=== PATIENT | male | born 1965 | race Caucasian/White ===

== ENCOUNTER 2016-05-05 19:22 | Observation (INO) | payer OTHER ==
--- NOTE | 2016-05-05 19:33 | ED ---
General Adult HPI - General Stated complaint: ETOH Time Seen by Provider: 05/05/16 19:23 Source: patient, police, EMS, RN notes reviewed Mode of arrival: EMS Limitations: no limitations - History of Present Illness Initial comments: 51-year-old male presents emergency Department with police and EMS for alcohol intoxication. Patient was found in the front yard. Patient states he fell and hit his head. Patient is complaining had neck pain. Patient is chronic back pain, chronic headaches from previous head injuries. Patient states he has no focal weakness. Denies any blurred vision, nausea, vomiting. Denies any chest pain or shortness of breath. Patient states his tetanus is up-to-date. Patient complains of abrasion to his left knee. - Related Data Home Medications Medication Instructions Recorded Confirmed Multivitamin [Multivitamins Adult 1 tab PO DAILY 10/30/14 12/24/15 Gummies] PARoxetine HCL [Paroxetine HCl] 20 mg PO DAILY 06/12/15 12/24/15 amLODIPine BESYLATE [Amlodipine 5 mg PO DAILY 06/12/15 12/24/15 Besylate] cloNIDine HCL 0.3 mg PO TID 06/12/15 12/24/15 Meloxicam [Mobic] 7.5 mg PO BID 10/04/15 12/24/15 Montelukast [Singulair] 10 mg PO HS 10/04/15 12/24/15 levETIRAcetam 1,000 mg PO BID 10/04/15 12/24/15 Fluticasone/Salmeterol [Advair 1 puff INHALATION RT-BID 11/14/15 12/24/15 250-50 Diskus] Pregabalin [Lyrica] 100 mg PO BID 11/14/15 12/24/15 Previous Rx's Medication Instructions Recorded Thiamine [Vitamin B-1] 100 mg PO BID@1200,1700 tab 12/26/15 Allergies Allergy/AdvReac Type Severity Reaction Status Date / Time No Known Allergies Allergy Verified 12/24/15 13:15 Review of Systems ROS Statement: Those systems with pertinent positive or pertinent negative responses have been documented in the HPI. ROS Other: All systems not noted in ROS Statement are negative. Past Medical History Past Medical History: COPD, Hypertension, Osteoarthritis (OA), Seizure Disorder Additional Past Medical History / Comment(s): etoh abuse chronic back pain tinnitus,head injur 1.5 years ago-fell down stairs hit head, statd has had blance issues and short term memory issues. History of Any Multi-Drug Resistant Organisms: None Reported Past Surgical History: No Surgical Hx Reported Additional Past Surgical History / Comment(s): wisdom teeth removed Past Anesthesia/Blood Transfusion Reactions: No Reported Reaction Past Psychological History: Anxiety Smoking Status: Current every day smoker Past Alcohol Use History: Abuse, Daily, Heavy Additional Past Alcohol Use History / Comment(s): 1 pack of cig lasts 4 days, hx. of alcohol abuse but is "cutting back",6 beers daily maybe 4-5 days of the week but occ will binge drink Past Drug Use History: None Reported - Past Family History Father Family Medical History: Cancer General Exam General appearance: alert, in no apparent distress, appears intoxicated Head exam: Present: atraumatic, normocephalic, normal inspection Eye exam: Present: normal appearance, PERRL, EOMI. Absent: scleral icterus, conjunctival injection, periorbital swelling ENT exam: Present: normal exam, normal oropharynx, mucous membranes moist, TM's normal bilaterally, normal external ear exam Neck exam: Present: normal inspection, full ROM. Absent: tenderness, meningismus, lymphadenopathy Respiratory exam: Present: normal lung sounds bilaterally. Absent: respiratory distress, wheezes, rales, rhonchi, stridor Cardiovascular Exam: Present: regular rate, normal rhythm, normal heart sounds. Absent: systolic murmur, diastolic murmur, rubs, gallop, clicks GI/Abdominal exam: Present: soft, normal bowel sounds. Absent: distended, tenderness, guarding, rebound, rigid Extremities exam: Present: full ROM, normal capillary refill. Absent: normal inspection (Small abrasion to left knee), tenderness, pedal edema, joint swelling, calf tenderness Neurological exam: Present: alert, oriented X3, CN II-XII intact, reflexes normal. Absent: motor sensory deficit Skin exam: Present: warm, dry, intact, normal color. Absent: rash Course Vital Signs 05/05/16 19:25 Temperature 97.3 F L Pulse Rate 98 Respiratory 18 Rate Blood Pressure 124/82 Medical Decision Making - Lab Data Result diagrams: 05/05/16 20:00 05/05/16 20:00 Lab Results 05/05/16 05/05/16 Range/Units 20:00 20:00 WBC 10.0 (3.8-10.6) k/uL RBC 4.19 L (4.30-5.90) m/uL Hgb 14.3 (13.0-17.5) gm/dL Hct 42.9 (39.0-53.0) % MCV 102.4 H (80.0-100.0) fL MCH 34.2 (25.0-35.0) pg MCHC 33.4 (31.0-37.0) g/dL RDW 14.4 (11.5-15.5) % Plt Count 198 (150-450) k/uL Sodium 135 L (137-145) mmol/L Potassium 4.3 (3.5-5.1) mmol/L Chloride 100 (98-107) mmol/L Carbon Dioxide 22 (22-30) mmol/L Anion Gap 13 mmol/L BUN 8 L (9-20) mg/dL Creatinine 0.69 (0.66-1.25) mg/dL Est GFR (MDRD) Af Amer >60 (>60 ml/min/1.73 sqM) Est GFR (MDRD) Non-Af >60 (>60 ml/min/1.73 sqM) Glucose 97 (74-99) mg/dL Calcium 9.3 (8.4-10.2) mg/dL Magnesium 2.1 (1.6-2.3) mg/dL Total Bilirubin 0.6 (0.2-1.3) mg/dL AST 87 H (17-59) U/L ALT 40 (21-72) U/L Alkaline Phosphatase 75 (38-126) U/L Total Protein 7.9 (6.3-8.2) g/dL Albumin 4.2 (3.5-5.0) g/dL Lipase 298 (23-300) U/L Serum Alcohol 394 mg/dL Disposition Clinical Impression: Fall, Alcohol intoxication Disposition: ADMITTED IP TO THIS [facility] Condition: Good Time of Disposition: 20:35
[2016-05-05 20:15] LABS: Aty Lym Flag Slight; CHCM 33.3; HCT 42.9 % (39.0-53.0); HDW 2.34; HGB 14.3 gm/dL (13.0-17.5); MCH 34.2 pg (25.0-35.0); MCHC 33.4 g/dL (31.0-37.0); MCV 102.4 fL (80.0-100.0); Macrocytosis Slight; Mean Platelet Volume 6.9; RBC 4.19 m/uL (4.30-5.90); RDW 14.4 % (11.5-15.5); WBC (Perox) 10.21
[2016-05-05 20:23] LABS: ALT 40 U/L (21-72); AST 87 U/L (17-59); Alkaline Phosphatase 75 U/L (38-126); Anion Gap 13 mmol/L; Blood Urea Nitrogen 8 mg/dL (9-20); Calcium 9.3 mg/dL (8.4-10.2); Carbon Dioxide 22 mmol/L (22-30); Chloride 100 mmol/L (98-107); Glucose 97 mg/dL (74-99); Magnesium 2.1 mg/dL (1.6-2.3); Non-African American GFR(MDRD) >60 (>60 ml/min/1.73 sqM); Potassium 4.3 mmol/L (3.5-5.1); Sodium 135 mmol/L (137-145); Total Bilirubin 0.6 mg/dL (0.2-1.3); Total Protein 7.9 g/dL (6.3-8.2)
--- NOTE | 2016-05-05 20:28 | CT ---
EXAMINATION TYPE: CT brain cspine wo con DATE OF EXAM: 05/05/2016 8:18 PM COMPARISON: 12/24/2015 and 11/14/2015 HISTORY: Fall today CT DLP: 1929 mGycm Automated exposure control for dose reduction was used. TECHNIQUE: CT scan of the head and cervical spine are performed without contrast. FINDINGS: There is cerebral cortical atrophy. There is no mass effect nor midline shift. There is n o sign of intracranial hemorrhage. The calvarium appears intact. The cervical vertebra have normal alignment and spacing. Posterior elements are intact. Skull base is intact. There is no sign of a fracture. IMPRESSION: Moderate cerebral cortical atrophy. No acute intracranial abnormality. No change compared to old exam . Negative CT scan of the cervical spine. No change compared to old exam.
[2016-05-05 20:32] LABS: Alcohol 394 mg/dL
[2016-05-05] MEDS ORDERED: ONDANSETRON 4 MG/2 ML VIAL IVP PRN (20:36)
[2016-05-05] MEDS ORDERED: NALOXONE 0.4 MG/ML 1 ML VIAL IV PRN (20:36)
[2016-05-05] MEDS ORDERED: SODIUM CHLORIDE 0.9% 1,000 ML with MVI, ADULT NO.4 WITH VIT K 10 ML, THIAMINE 100 MG, F... IV ONE ×4 (20:37)
[2016-05-05] MEDS ORDERED: LORazepam 2 MG/ML SYRINGE IV PRN ×3 (20:37)
[2016-05-05 20:50] LABS: Add Differential Manual Differential
[2016-05-05 20:51] LABS: Nucleated Red Blood Cells 0 /100 WBC (0-0); Polychromasia Present; Total Cells Counted 100; Toxic Granulation Present
[2016-05-05 22:11] VITALS: BMI 28.1
[2016-05-05] MEDS: GABAPENTIN 100 MG CAP PO SCH (22:54)
[2016-05-05] MEDS: THIAMINE 100 MG TAB PO SCH (22:54)
[2016-05-05] MEDS: cloNIDine HCL 0.1 MG TAB PO SCH (22:54)
[2016-05-05] MEDS: levETIRAcetam 500 MG TAB PO SCH (22:55)
[2016-05-05] MEDS: MONTELUKAST 10 MG TAB PO SCH (22:55)
[2016-05-05] MEDS: MELOXICAM 7.5 MG TAB PO SCH (22:55)
[2016-05-05] MEDS: PREGABALIN 75 MG CAP PO SCH (22:55)
[2016-05-06] MEDS: SYMBICORT 80-4.5 MCG INHALER INHALATION SCH ×2 (07:11→17:04)
[2016-05-06] MEDS: PREGABALIN 75 MG CAP PO SCH ×2 (08:08→19:58)
[2016-05-06] MEDS: PARoxetine 20 MG TAB PO SCH (08:08)
[2016-05-06] MEDS: amLODIPine 5 MG TAB PO SCH (08:08)
[2016-05-06] MEDS: cloNIDine HCL 0.1 MG TAB PO SCH ×3 (08:08→19:58)
[2016-05-06] MEDS: levETIRAcetam 500 MG TAB PO SCH ×2 (08:08→19:58)
[2016-05-06] MEDS: MELOXICAM 7.5 MG TAB PO SCH ×2 (08:08→19:58)
[2016-05-06] MEDS: GABAPENTIN 100 MG CAP PO SCH ×2 (08:08→19:59)
[2016-05-06] MEDS ORDERED: THIAMINE 100 MG TAB PO SCH (09:00)
[2016-05-06] MEDS: SODIUM CHLORIDE 0.9% 1,000 ML IV SCH ×2 (11:44→19:43)
[2016-05-06] MEDS: THIAMINE 100 MG TAB PO SCH ×2 (11:45→16:58)
[2016-05-06] MEDS ORDERED: MULTIVITAMINS, THERA 1 EACH TAB PO SCH (12:00)
--- NOTE | 2016-05-06 16:09 | P.HPIM ---
History of Present Illness H&P Date: 05/06/16 Chief Complaint: Acute alcohol intoxication 51-year-old male presented to the emergency room with police via the EMS system for acute alcohol intoxication. Blood alcohol level was 394 on admission Patient reportedly was found in the front yard. He states he fell and hit his head. Patient was complaining of neck pain. Patient denied any blurred vision no nausea vomiting. Denied chest pain or shortness of breath. Patient did state that he had an abrasion to his left knee when he fell. Patient states he has chronic pain and chronic headaches from prior head injury. Patient does have a history of chronic alcoholism. Computed tomography scan of the brain and C-spine was obtained it was a negative CAT scan of the cervical spine. The CT of the brain showed moderate cerebral atrophy with no acute intracranial hemorrhage. No change compared to prior exam Patient states that he had been not drinking but "fell off the wake and started drinking again" Patient currently is sitting up in bed oriented 3 cooperative CIWA protocol in place for impending DTs using Ativan and neurology consultation pending Last hospitalization was in December 2015 at that time blood alcohol level was 452. Review of Systems Essentially unremarkable except as mentioned in the present illness Past Medical History Past Medical History: COPD, Hypertension, Neurologic Disorder, Osteoarthritis ( OA), Seizure Disorder Additional Past Medical History / Comment(s): etoh abuse chronic back pain tinnitus,head injur 1.5 years ago-fell down stairs hit head, statd has had blance issues and short term memory issues. History of Any Multi-Drug Resistant Organisms: None Reported Past Surgical History: No Surgical Hx Reported Additional Past Surgical History / Comment(s): wisdom teeth removed Past Anesthesia/Blood Transfusion Reactions: No Reported Reaction Past Psychological History: Anxiety, Depression Smoking Status: Current every day smoker Past Alcohol Use History: Abuse, Daily, Heavy Additional Past Alcohol Use History / Comment(s): 1 pack of cig lasts 4 days, hx. of alcohol abuse but is "cutting back",6 beers daily maybe 4-5 days of the week but occ will binge drink Past Drug Use History: None Reported - Past Family History Mother Additional Family Medical History / Comment(s): Dementia Father Family Medical History: Cancer Additional Family Medical History / Comment(s): Colon CA Medications and Allergies Home Medications Medication Instructions Recorded Confirmed Type Multivitamin [Multivitamins Adult 1 tab PO DAILY 10/30/14 05/05/16 History Gummies] PARoxetine HCL [Paroxetine HCl] 20 mg PO DAILY 06/12/15 05/05/16 History amLODIPine BESYLATE [Amlodipine 5 mg PO DAILY 06/12/15 05/05/16 History Besylate] cloNIDine HCL 0.3 mg PO TID 06/12/15 05/05/16 History Meloxicam [Mobic] 7.5 mg PO BID 10/04/15 05/05/16 History Montelukast [Singulair] 10 mg PO HS 10/04/15 05/05/16 History levETIRAcetam 1,000 mg PO BID 10/04/15 05/05/16 History Fluticasone/Salmeterol [Advair 1 puff INHALATION RT-BID 11/14/15 05/05/16 History 250-50 Diskus] Gabapentin [Neurontin] 100 mg PO BID 05/05/16 05/05/16 History Thiamine [Vitamin B-1] 100 mg PO DAILY 05/05/16 05/05/16 History Allergies Allergy/AdvReac Type Severity Reaction Status Date / Time No Known Allergies Allergy Verified 05/05/16 22:02 Physical Exam Vitals: Vital Signs Temp Pulse Pulse Resp BP BP Pulse Ox 05/06/16 12:00 62 16 05/06/16 11:57 99.2 F 62 18 120/65 96 05/06/16 08:22 97.4 F L 61 18 112/61 96 05/06/16 08:00 49 L 16 05/06/16 04:00 97.6 F 49 L 16 92/58 92 L 05/06/16 00:00 18 05/05/16 22:22 18 05/05/16 22:07 65 18 140/83 98 05/05/16 20:50 97.0 F L 66 18 103/63 97 Intake and Output 05/06/16 05/06/16 05/06/16 06:59 14:59 22:59 Intake Total 240 Balance 240 Intake: Oral 240 Other: Voiding Method Toilet # Voids 1 GENERAL APPEARANCE: 51-year-old male patient is alert, oriented, 3 in no acute distress. Sitting up in bed taking a diet VITAL SIGNS: Reviewed HEENT: Head is normocephalic and atraumatic. Pupils are equal and reactive. The nares are patent. Oropharynx is clear without lesions. NECK: Supple without lymphadenopathy. Traches midline. HEART: S1, S2. Regular rate and rhythm. Denying chest pain LUNGS: No crackles or wheezes are heard. Adequate air movement bilaterally on room air ABDOMEN: Soft, nontender, nondistended with good bowel sounds. No peritoneal signs. No palpable organomegaly or masses. EXTREMITIES: Normal skin color and turgor. No cyanosis, rash, ulceration, clubbing or edema. Radial pedal pulses are 2/4 bilaterally. Skin abrasion left knee NEUROLOGICAL: No focal deficits. Strength and sensation are grossly intact. Results CBC & Chem 7: 05/05/16 20:00 05/05/16 20:00 Thrombosis Risk Factor Assmnt - Choose All That Apply Each Factor Represents 1 point: Age 41-60 years Thrombosis Risk Factor Assessment Total Risk Factor Score: 1 Thrombosis Risk Factor Assessment Level: Low Risk Assessment and Plan Plan: Impression Present on admission acute alcohol intoxication blood alcohol level 394 Prior to admission fall from a standing position History of a seizure disorder on Keppra 1 g twice a day Hypertension essential Alcohol dependency uncomplicated Chronic alcoholism daily consumption Anxiety disorder nonspecified Current every day smoker Plan CIWA protocol using Ativan for impending DTs Neurology consultation pending Resume home meds as appropriate DVT and GI prophylaxis Fall precautions Patient's been advised to stop smoking cigarettes and drinking alcohol information provided Further recommendations pending The above dictated assessment and findings were discussed with dr roeg Herrera and the plan of care have been dictated as directed. Traci Roe nurse practitioner acting as a scribe for dr guan
--- NOTE | 2016-05-06 19:32 | P.CNNES ---
History of Present Illness Consult date: 05/06/16 Reason for Consult: Patient with alcohol intoxication and fall with altered mental status. History of Present Illness: This patient is a 51-year-old male who was brought to the emergency room today via EMS after being found intoxicated then collapsed on his front yard. Patient has a long-standing history of alcohol abuse and apparently was drinking. He was brought to the emergency room at [facility] where he was evaluated by Dr. Decker. He had struck his head when he had fallen in the front yard and for this reason was sent for a computed tomography scan of the brain and cervical spine. CAT scan of the brain revealed moderate cortical atrophy with no acute intracranial abnormality. Computed tomography scan of the cervical spine was negative with no evidence of fracture or subluxation. Patient's blood alcohol level was noted to be 394 on admission. He was started on a CIWA protocol and admitted to the hospital. Patient states he has been treated for chronic alcoholism. He once again started drinking again recently. In December 2015 his blood alcohol level was 452. Patient states he is recently been found to have evidence of neuropathy. He has been started on gabapentin 100 mg twice a day only last week. For seizure management he has been taking Keppra thousand milligrams twice a day. Patient states he is feeling slightly improved since admission to the hospital. He has had no witnessed seizures since admission. We have recommended to check his Keppra blood level tomorrow morning. We will also obtain routine EEG. He is to be maintained on a CIWA protocol for impending DTs. The patient denies any headache or focal weakness at this time. Neurology is now been consulted for further evaluation and recommendations. Review of Systems Constitutional: Denies chills, Denies fever Eyes: denies blurred vision, denies pain Ears, nose, mouth and throat: Denies headache, Denies sore throat Cardiovascular: Denies chest pain, Denies shortness of breath Respiratory: Denies cough Gastrointestinal: Denies abdominal pain, Denies diarrhea, Denies nausea, Denies vomiting Musculoskeletal: Denies myalgias Integumentary: Denies pruritus, Denies rash Neurological: Reports change in mentation, Reports confusion, Reports convulsions, Reports paresthesias, Reports syncope, Denies numbness, Denies weakness Psychiatric: Denies anxiety, Denies depression Endocrine: Denies fatigue, Denies weight change Past Medical History Past Medical History: COPD, Hypertension, Neurologic Disorder, Osteoarthritis ( OA), Seizure Disorder Additional Past Medical History / Comment(s): etoh abuse chronic back pain tinnitus,head injur 1.5 years ago-fell down stairs hit head, statd has had blance issues and short term memory issues. History of Any Multi-Drug Resistant Organisms: None Reported Past Surgical History: No Surgical Hx Reported Additional Past Surgical History / Comment(s): wisdom teeth removed Past Anesthesia/Blood Transfusion Reactions: No Reported Reaction Past Psychological History: Anxiety, Depression Smoking Status: Current every day smoker Past Alcohol Use History: Abuse, Daily, Heavy Additional Past Alcohol Use History / Comment(s): 1 pack of cig lasts 4 days, hx. of alcohol abuse but is "cutting back",6 beers daily maybe 4-5 days of the week but occ will binge drink Past Drug Use History: None Reported - Past Family History Mother Additional Family Medical History / Comment(s): Dementia Father Family Medical History: Cancer Additional Family Medical History / Comment(s): Colon CA Medications and Allergies Home Medications Medication Instructions Recorded Confirmed Type Multivitamin [Multivitamins Adult 1 tab PO DAILY 10/30/14 05/05/16 History Gummies] PARoxetine HCL [Paroxetine HCl] 20 mg PO DAILY 06/12/15 05/05/16 History amLODIPine BESYLATE [Amlodipine 5 mg PO DAILY 06/12/15 05/05/16 History Besylate] cloNIDine HCL 0.3 mg PO TID 06/12/15 05/05/16 History Meloxicam [Mobic] 7.5 mg PO BID 10/04/15 05/05/16 History Montelukast [Singulair] 10 mg PO HS 10/04/15 05/05/16 History levETIRAcetam 1,000 mg PO BID 10/04/15 05/05/16 History Fluticasone/Salmeterol [Advair 1 puff INHALATION RT-BID 11/14/15 05/05/16 History 250-50 Diskus] Gabapentin [Neurontin] 100 mg PO BID 05/05/16 05/05/16 History Thiamine [Vitamin B-1] 100 mg PO DAILY 05/05/16 05/05/16 History Allergies Allergy/AdvReac Type Severity Reaction Status Date / Time No Known Allergies Allergy Verified 05/05/16 22:02 Physical Examination - Vital Signs Vital Signs: Vital Signs Temp Pulse Pulse Resp BP BP Pulse Ox 05/06/16 12:00 62 16 05/06/16 11:57 99.2 F 62 18 120/65 96 05/06/16 08:22 97.4 F L 61 18 112/61 96 05/06/16 08:00 49 L 16 05/06/16 04:00 97.6 F 49 L 16 92/58 92 L 05/06/16 00:00 18 05/05/16 22:22 18 05/05/16 22:07 65 18 140/83 98 05/05/16 20:50 97.0 F L 66 18 103/63 97 Intake and Output 05/05/16 05/06/16 05/06/16 22:59 06:59 14:59 Intake Total 240 Balance 240 Intake: Oral 240 Other: Voiding Method Toilet # Voids 1 Weight 83.9 kg - Constitutional General appearance: average body habitus, cooperative - EENT EENT: PERRL, mucous membranes moist - Respiratory Respiratory: lungs clear, normal breath sounds - Cardiovascular Cardiovascular: regular rate, normal S1, normal S2 Extremities: no peripheral edema bilaterally - Gastrointestinal Gastrointestinal: normoactive bowel sounds - Integumentary Integumentary: normal - Neurologic Cranial nerve examination: PERRL, EOMI, VFF, V1/V2/V3 grossly intact, face symmetric, tongue midline, intact gag reflex, intact corneal reflex, normal palatal elevation Speech examination: intact Sensorimotor examination: intact Detailed motor examination: grossly full strength in all extremities Motor examination - right side: 5/5: biceps, triceps, wrist flexion, wrist extension, [employer], hip flexors, knee extensors, dorsiflexion, toe extension (EHL) , plantarflexion Motor examination - left side: 5/5: biceps, triceps, wrist flexion, wrist extension, [employer] casting, hip flexors, knee extensors, dorsiflexion, toe extension (EHL) , plantarflexion Detailed sensory examination: intact Reflex and gait examination: intact Reflexes: 1+: ankle, bicep, knee, tricep - Musculoskeletal Musculoskeletal: no pain - Psychiatric Psychiatric: mood/affect appropriate, cooperative Results - Laboratory Findings CBC and BMP: 05/05/16 20:00 05/05/16 20:00 Assessment and Plan (1) Alcohol withdrawal seizure Status: Acute Code(s): F10.239 - ALCOHOL DEPENDENCE WITH WITHDRAWAL, UNSPECIFIED (2) Alcohol intoxication Status: Acute Code(s): F10.129 - ALCOHOL ABUSE WITH INTOXICATION, UNSPECIFIED (3) Complex partial epilepsy Status: Acute Code(s): G40.209 - LOCAL-REL SYMPTC EPI W CMPLX PRT SEIZ,NOT NTRCT,W/O STAT EPI (4) Peripheral neuropathy Status: Acute Code(s): G62.9 - POLYNEUROPATHY, UNSPECIFIED Plan: This patient is a 51-year-old male with known history of chronic alcoholism and alcohol withdrawal seizures. Patient was found collapsed in front of his home on his yard. EMS was called to the scene and he was brought into the emergency room for evaluation. His blood alcohol level on admission was 394. He was sent for computed tomography scan of the brain and cervical spine the results of which are noted above. Both CAT scans were negative for any acute findings. He was admitted to the hospital and is been started on a CIWA protocol. He has been tolerating this and is able to follow simple commands at this time. He denies any headache or focal weakness. He is being closely monitor for delirium tremens due to alcohol abuse. Patient is to continue on Keppra for treatment of his underlying epilepsy. He has recently been diagnosed with neuropathy and is taking gabapentin 100 mg twice a day. We have reviewed the CAT scan results with the patient today in detail. We will obtain a routine EEG tomorrow morning for further assessment. He should be maintained on his current dose of Keppra. We will check his Keppra level tomorrow morning and adjust his dose as needed. He has been recommended to consider outpatient drug rehabilitation program. We will continue close neurological follow-up for this patient during this admission. His overall prognosis at this time remains very guarded. Time with Patient: Greater than 30
[2016-05-06 19:53] VITALS: RESP 16; TEMP 97.9
[2016-05-06] MEDS: FAMOTIDINE 20 MG TAB PO SCH (19:58)
[2016-05-06] MEDS: MONTELUKAST 10 MG TAB PO SCH (19:59)
[2016-05-07] MEDS: SODIUM CHLORIDE 0.9% 1,000 ML IV SCH (05:35)
[2016-05-07 06:34] LABS: Aty Lym Flag Slight; CH 34.4; CHCM 33.2; HCT 40.5 % (39.0-53.0); HDW 2.35; HGB 13.1 gm/dL (13.0-17.5); MCH 33.7 pg (25.0-35.0); MCHC 32.4 g/dL (31.0-37.0); MCV 103.9 fL (80.0-100.0); Macrocytosis Slight; Mean Platelet Volume 7.1; RDW 14.6 % (11.5-15.5); WBC 6.4 k/uL (3.8-10.6); WBC (Perox) 6.86
[2016-05-07 06:48] LABS: Add Differential Manual Differential
[2016-05-07 06:51] LABS: ALT 33 U/L (21-72); AST 53 U/L (17-59); Alkaline Phosphatase 66 U/L (38-126); Anion Gap 9 mmol/L; Blood Urea Nitrogen 13 mg/dL (9-20); Calcium 9.3 mg/dL (8.4-10.2); Carbon Dioxide 24 mmol/L (22-30); Chloride 109 mmol/L (98-107); Glucose 101 mg/dL (74-99); Non-African American GFR(MDRD) >60 (>60 ml/min/1.73 sqM); Potassium 4.5 mmol/L (3.5-5.1); Sodium 142 mmol/L (137-145); Total Bilirubin 0.6 mg/dL (0.2-1.3)
[2016-05-07 06:52] LABS: Nucleated Red Blood Cells 0 /100 WBC (0-0); Total Cells Counted 200
[2016-05-07 06:53] LABS: Manual Review Performed
[2016-05-07] MEDS: SYMBICORT 80-4.5 MCG INHALER INHALATION SCH (07:14)
[2016-05-07 07:38] VITALS: BP 134/85; PULSE 58
[2016-05-07] MEDS: FAMOTIDINE 20 MG TAB PO SCH (10:40)
[2016-05-07] MEDS: cloNIDine HCL 0.1 MG TAB PO SCH (10:40)
[2016-05-07] MEDS: levETIRAcetam 500 MG TAB PO SCH (10:40)
[2016-05-07] MEDS: GABAPENTIN 100 MG CAP PO SCH (10:40)
[2016-05-07] MEDS: amLODIPine 5 MG TAB PO SCH (10:40)
[2016-05-07] MEDS: MELOXICAM 7.5 MG TAB PO SCH (10:41)
[2016-05-07] MEDS: PREGABALIN 75 MG CAP PO SCH (10:41)
[2016-05-07] MEDS: PARoxetine 20 MG TAB PO SCH (10:41)
--- NOTE | 2016-05-08 07:10 | EEG ---
DATE OF SERVICE: 05/07/2016 INDICATIONS FOR EXAMINATION: This patient is a 51-year-old male with history of alcohol intoxication and alcohol-related seizure disorder. Patient found collapsed in front of his home. AGE: 51Y EEG FINDINGS: A routine 21-channel, awake digital EEG recording was accomplished utilizing the 10 to 20 international system with bipolar and referential montages. The background activity in the most alert resting state consists of a low to medium amplitude, fairly well-developed and well-sustained 7 to 8 Hz activity over the posterior head regions. This posterior rhythm attenuates to eye opening. There is a small amount of low amplitude 18 to 20 Hz beta activity seen maximally over the anterior head regions. Muscle and movement artifact was observed on a few occasions during the tracing. Hyperventilation was not performed. Photic stimulation at flash frequencies of 2 to 30 Hz produced a good symmetrical occipital driving response. No epileptiform discharges were seen. IMPRESSION: This EEG is normal for the patient's age. The EEG failed to reveal any focal, lateralized or epileptiform abnormalities. Clinical correlation is recommended.
== END 2016-05-07 15:52 | disposition home or self-care (01) ==
LOC: EC 19:22 → 3OBS 20:45
PROVIDERS: ADMIT Family Medicine; ATTEND Family Medicine
DX: F10.220 Alcohol dependence with intoxication, uncomplicated (principal); M54.2 Cervicalgia; J44.9 Chronic obstructive pulmonary disease, unspecified; I10 Essential (primary) hypertension; G89.29 Other chronic pain; F17.210 Nicotine dependence, cigarettes, uncomplicated; W18.30XA Fall on same level, unspecified, initial encounter; Y92.017 Garden or yard in single-family (private) house as the place of occurrence of the external cause; Z82.0 Family history of epilepsy and other diseases of the nervous system; Z80.0 Family history of malignant neoplasm of digestive organs; G40.209 Localization-related (focal) (partial) symptomatic epilepsy and epileptic syndromes with complex partial seizures, not intractable, without status epilepticus; G62.9 Polyneuropathy, unspecified; Y90.8 Blood alcohol level of 240 mg/100 ml or more; F41.9 Anxiety disorder, unspecified; F32.9 Major depressive disorder, single episode, unspecified; Z79.899 Other long term (current) drug therapy; Z87.820 Personal history of traumatic brain injury; Z79.51 Long term (current) use of inhaled steroids
CPT/HCPCS: 99285 ×2; 96365 ×2; 36415; 94640 ×3; 95816; 80053 ×2; 80177; 83690; 83735; 85025 ×2; 80320; 72125; 70450; G0378 ×3; J3411

== ENCOUNTER 2016-05-10 13:53 | Observation (INO) | payer OTHER ==
[2016-05-10] MEDS ORDERED: SODIUM CHLORIDE 0.9% 1,000 ML IV STA (14:17)
[2016-05-10 14:53] LABS: Basophils % (A) 0 %; CH 34.3; CHCM 33.3; Eosinophils # (A) 0.3 k/uL (0-0.7); Eosinophils % (A) 3 %; HCT 40.8 % (39.0-53.0); HDW 2.42; HGB 13.2 gm/dL (13.0-17.5); Luc # (Auto) 0.42; Luc % (Auto) 4; Lymphocytes # (A) 1.5 k/uL (1.0-4.8); Lymphocytes % (A) 16 %; MCH 33.4 pg (25.0-35.0); MCHC 32.4 g/dL (31.0-37.0); MCV 103.2 fL (80.0-100.0); Macrocytosis Slight; Mean Platelet Volume 7.1; Monocytes # (A) 0.6 k/uL (0-1.0); Monocytes % (A) 6 %; Neutrophils % (A) 71 %; RBC 3.96 m/uL (4.30-5.90); RDW 14.4 % (11.5-15.5); WBC 9.8 k/uL (3.8-10.6); WBC (Perox) 9.77
[2016-05-10 15:03] LABS: ALT 61 U/L (21-72); AST 108 U/L (17-59); Alkaline Phosphatase 82 U/L (38-126); Anion Gap 16 mmol/L; Blood Urea Nitrogen 8 mg/dL (9-20); Carbon Dioxide 18 mmol/L (22-30); Chloride 113 mmol/L (98-107); Glucose 99 mg/dL (74-99); Non-African American GFR(MDRD) >60 (>60 ml/min/1.73 sqM); Potassium 4.4 mmol/L (3.5-5.1); Sodium 147 mmol/L (137-145); Total Bilirubin 0.4 mg/dL (0.2-1.3); Total Protein 7.7 g/dL (6.3-8.2)
[2016-05-10 15:08] LABS: Appearance,Urine Clear (Clear); Bilirubin,Urine Negative (Negative); Glucose,Urine (UA) Negative (Negative); Ketones,Urine Negative (Negative); Leukocyte Esterase,Urine Negative (Negative); Nitrite,Urine Negative (Negative); PH, Urine 5.5 (5.0-8.0); Protein,Urine Negative (Negative); Specific Gravity,Urine 1.001 (1.001-1.035); UA Billing (MACRO vs. MICRO) CHEM; Urobilinogen,Urine <2.0 mg/dL (<2.0)
[2016-05-10 15:13] LABS: Alcohol 382 mg/dL
--- NOTE | 2016-05-10 15:13 | ED ---
General Adult HPI - General Chief complaint: Head Injury Stated complaint: FALL, HEAD INJURY, ETOH Time Seen by Provider: 05/10/16 14:03 Source: patient, EMS Mode of arrival: EMS Limitations: no limitations - History of Present Illness Initial comments: 51-year-old male patient presents to emergency department today after experiencing a fall while out shopping. Patient states that he had a seizure which induced the fall. Patient does have a small laceration over the right eyebrow. Patient has a history of seizures. Patient also admits to being intoxicated. Patient is complaining of neck pain worse than usual. Patient has lower back pain and left hip pain but states this is chronic in nature. Patient denies any chest pain, dizziness, weakness, headache, nausea, vomiting, or abdominal pain. Patient denies any loss of bowel or bladder function. Patient is unsure how long the seizure lasted. Patient was wearing a c-collar upon presentation to the emergency department by EMS. Patient current GCS is 15. - Related Data Home Medications Medication Instructions Recorded Confirmed Multivitamin [Multivitamins Adult 1 tab PO DAILY 10/30/14 05/10/16 Gummies] PARoxetine HCL [Paroxetine HCl] 20 mg PO DAILY 06/12/15 05/10/16 amLODIPine BESYLATE [Amlodipine 5 mg PO DAILY 06/12/15 05/10/16 Besylate] cloNIDine HCL 0.3 mg PO TID 06/12/15 05/10/16 Meloxicam [Mobic] 7.5 mg PO BID 10/04/15 05/10/16 Montelukast [Singulair] 10 mg PO HS 10/04/15 05/10/16 levETIRAcetam 1,000 mg PO BID 10/04/15 05/10/16 Fluticasone/Salmeterol [Advair 1 puff INHALATION RT-BID 11/14/15 05/10/16 250-50 Diskus] Gabapentin [Neurontin] 100 mg PO BID 05/05/16 05/10/16 Thiamine [Vitamin B-1] 100 mg PO DAILY 05/05/16 05/10/16 Pregabalin [Lyrica] 75 mg PO BID 05/10/16 05/10/16 Allergies Allergy/AdvReac Type Severity Reaction Status Date / Time No Known Allergies Allergy Verified 05/10/16 14:09 Review of Systems ROS Statement: Those systems with pertinent positive or pertinent negative responses have been documented in the HPI. ROS Other: All systems not noted in ROS Statement are negative. Past Medical History Past Medical History: COPD, Hypertension, Neurologic Disorder, Osteoarthritis ( OA), Seizure Disorder Additional Past Medical History / Comment(s): etoh abuse chronic back pain tinnitus,head injur 1.5 years ago-fell down stairs hit head, statd has had blance issues and short term memory issues. History of Any Multi-Drug Resistant Organisms: None Reported Past Surgical History: No Surgical Hx Reported Additional Past Surgical History / Comment(s): wisdom teeth removed Past Anesthesia/Blood Transfusion Reactions: No Reported Reaction Past Psychological History: Anxiety, Depression Smoking Status: Current every day smoker Past Alcohol Use History: Abuse, Daily, Heavy Additional Past Alcohol Use History / Comment(s): 1 pack of cig lasts 4 days, hx. of alcohol abuse but is "cutting back",6 beers daily maybe 4-5 days of the week but occ will binge drink Past Drug Use History: None Reported - Past Family History Mother Additional Family Medical History / Comment(s): Dementia Father Family Medical History: Cancer Additional Family Medical History / Comment(s): Colon CA General Exam Limitations: no limitations General appearance: alert, in no apparent distress Head exam: Present: normocephalic, normal inspection. Absent: atraumatic (1.5 cm laceration noted above right eyebrow) Eye exam: Present: normal appearance, PERRL, EOMI. Absent: scleral icterus, conjunctival injection, periorbital swelling ENT exam: Present: normal exam, mucous membranes moist Neck exam: Present: normal inspection. Absent: tenderness, meningismus, full ROM (c-collar in place), lymphadenopathy Respiratory exam: Present: normal lung sounds bilaterally. Absent: respiratory distress, wheezes, rales, rhonchi, stridor Cardiovascular Exam: Present: regular rate, normal rhythm, normal heart sounds. Absent: systolic murmur, diastolic murmur, rubs, gallop, clicks GI/Abdominal exam: Present: soft, normal bowel sounds. Absent: distended, tenderness, guarding, rebound, rigid Extremities exam: Present: normal inspection, full ROM, normal capillary refill. Absent: tenderness, pedal edema, joint swelling, calf tenderness Back exam: Present: normal inspection. Absent: tenderness, CVA tenderness (R), CVA tenderness (L), paraspinal tenderness, vertebral tenderness Neurological exam: Present: alert, oriented X3, CN II-XII intact Psychiatric exam: Present: normal affect, normal mood Skin exam: Present: warm, dry, intact, normal color. Absent: rash Course Vital Signs 05/10/16 13:57 Temperature 97.1 F L Pulse Rate 84 Respiratory 16 Rate Blood Pressure 118/69 O2 Sat by Pulse 93 L Oximetry Procedures - Procedures Initial comment: Laceration over right eyebrow was cleaned thoroughly, a deep structures were intact it was Dermabond closed at this time Medical Decision Making - Medical Decision Making 51-year-old male present emergency For seizure, fall head injury. Patient is intoxicated. Patient does not have a ride at this time. Patient will be admitted to the hospital under Ativan alcohol withdrawal/CIWA. Patient has no history of seizures. - Lab Data Result diagrams: 05/10/16 14:30 05/10/16 14:30 Lab Results 05/10/16 05/10/16 05/10/16 Range/Units 14:30 14:30 14:50 WBC 9.8 (3.8-10.6) k/uL RBC 3.96 L (4.30-5.90) m/uL Hgb 13.2 (13.0-17.5) gm/dL Hct 40.8 (39.0-53.0) % MCV 103.2 H (80.0-100.0) fL MCH 33.4 (25.0-35.0) pg MCHC 32.4 (31.0-37.0) g/dL RDW 14.4 (11.5-15.5) % Plt Count 193 (150-450) k/uL Neutrophils % 71 % Lymphocytes % 16 % Monocytes % 6 % Eosinophils % 3 % Basophils % 0 % Neutrophils # 7.0 (1.3-7.7) k/uL Lymphocytes # 1.5 (1.0-4.8) k/uL Monocytes # 0.6 (0-1.0) k/uL Eosinophils # 0.3 (0-0.7) k/uL Basophils # 0.0 (0-0.2) k/uL Macrocytosis Slight Sodium 147 H (137-145) mmol/L Potassium 4.4 (3.5-5.1) mmol/L Chloride 113 H (98-107) mmol/L Carbon Dioxide 18 L (22-30) mmol/L Anion Gap 16 mmol/L BUN 8 L (9-20) mg/dL Creatinine 0.67 (0.66-1.25) mg/dL Est GFR (MDRD) Af Amer >60 (>60 ml/min/1.73 sqM) Est GFR (MDRD) Non-Af >60 (>60 ml/min/1.73 sqM) Glucose 99 (74-99) mg/dL Calcium 9.0 (8.4-10.2) mg/dL Total Bilirubin 0.4 (0.2-1.3) mg/dL AST 108 H (17-59) U/L ALT 61 (21-72) U/L Alkaline Phosphatase 82 (38-126) U/L Total Protein 7.7 (6.3-8.2) g/dL Albumin 4.0 (3.5-5.0) g/dL Urine Color Colorless Urine Appearance Clear (Clear) Urine pH 5.5 (5.0-8.0) Ur Specific [place] 1.001 (1.001-1.035) Urine Protein Negative (Negative) Urine Glucose (UA) Negative (Negative) Urine Ketones Negative (Negative) Urine Blood Negative (Negative) Urine Nitrite Negative (Negative) Urine Bilirubin Negative (Negative) Urine Urobilinogen <2.0 (<2.0) mg/dL Ur Leukocyte Esterase Negative (Negative) Serum Alcohol 382 mg/dL - EKG Data -: EKG Interpreted by 05/10/16 15:09 EKG obtained at 1452 reveals normal sinus rhythm, low voltage QRS, prolonged QT , ventricular 85, AR interval 160, care is duration 106, QT 404, QTC 480. No evidence of ST elevation or depression. Disposition Clinical Impression: Alcohol intoxication, Fall, Seizures, Facial laceration Disposition: ADMITTED IP TO THIS [facility] Condition: Good Time of Disposition: 16:45
[2016-05-10] MEDS ORDERED: TOPICAL SKIN ADHESIVE 1 EACH AMP TOPICAL ONE (15:15)
--- NOTE | 2016-05-10 16:12 | CT ---
EXAMINATION TYPE: CT brain cspine wo con DATE OF EXAM: 05/10/2016 3:47 PM COMPARISON: Previous study dated 05/05/2016. HISTORY: Fall, head injury. History of seizures. CT DLP: 1440.20 mGycm Automated exposure control for dose reduction was used. FINDINGS: BRAIN: There are prominent CSF spaces surrounding the brain. This may be simply secondary to atrophy. There are atrophic changes which are more prominent in the frontal lobes. This can sometimes be seen in pick's disease. There is no acute focal lesion, mass effect or midline shift identified. I do not see evidence of intracranial blood. Visualized portions of the paranasal sinuses and mastoids are clear. No depressed skull fracture is s een. IMPRESSION: 1. NO ACUTE INTRACRANIAL ABNORMALITY. 2. ATROPHIC CHANGE ARE PROMINENT IN THE FRONTAL REGION. 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 CERVICAL SPINE: Visualized portions of the lungs are clear. There is some shotty cervical adenopathy. Prevertebral soft tissues are otherwise normal. Vertebral body height and alignment are maintained. Atlantoaxial relationships are normal. No fractur e is seen. IMPRESSION: NORMAL CT SCAN OF THE CERVICAL SPINE.
[2016-05-10] MEDS ORDERED: NALOXONE 0.4 MG/ML 1 ML VIAL IV PRN (16:46)
[2016-05-10] MEDS ORDERED: LORazepam 2 MG/ML SYRINGE IV PRN ×3 (16:47)
[2016-05-10] MEDS ORDERED: SODIUM CHLORIDE 0.9% 1,000 ML with MVI, ADULT NO.4 WITH VIT K 10 ML, THIAMINE 100 MG, F... IV ONE ×4 (16:47)
[2016-05-10] MEDS ORDERED: THIAMINE 100 MG TAB PO SCH (17:00)
[2016-05-10 18:09] VITALS: RESP 18
[2016-05-10] MEDS: PREGABALIN 75 MG CAP PO SCH (21:35)
[2016-05-10] MEDS: cloNIDine HCL 0.1 MG TAB PO SCH (21:36)
[2016-05-10] MEDS: GABAPENTIN 100 MG CAP PO SCH (21:36)
[2016-05-10] MEDS: MONTELUKAST 10 MG TAB PO SCH (21:36)
[2016-05-10] MEDS: levETIRAcetam 500 MG TAB PO SCH (21:36)
[2016-05-10] MEDS: MELOXICAM 7.5 MG TAB PO SCH (21:36)
[2016-05-10] MEDS: SODIUM CHLORIDE 0.9% 1,000 ML IV SCH (23:12)
[2016-05-11] MEDS: SODIUM CHLORIDE 0.9% 1,000 ML IV SCH ×2 (06:22→16:48)
[2016-05-11] MEDS: PREGABALIN 75 MG CAP PO SCH ×2 (08:49→20:40)
[2016-05-11] MEDS: levETIRAcetam 500 MG TAB PO SCH ×2 (08:49→20:40)
[2016-05-11] MEDS: cloNIDine HCL 0.1 MG TAB PO SCH ×3 (08:49→20:40)
[2016-05-11] MEDS: GABAPENTIN 100 MG CAP PO SCH ×2 (08:49→20:40)
[2016-05-11] MEDS: MELOXICAM 7.5 MG TAB PO SCH ×2 (08:50→20:41)
[2016-05-11] MEDS: SYMBICORT 80-4.5 MCG INHALER INHALATION SCH ×2 (08:57→19:39)
[2016-05-11] MEDS ORDERED: PARoxetine 20 MG TAB PO SCH (09:00)
[2016-05-11] MEDS ORDERED: amLODIPine 5 MG TAB PO SCH (09:00)
[2016-05-11] MEDS ORDERED: THIAMINE 100 MG TAB PO SCH (09:00)
[2016-05-11] MEDS ORDERED: MULTIVITAMINS, THERA 1 EACH TAB PO SCH (12:00)
--- NOTE | 2016-05-11 15:19 | P.CNNES ---
History of Present Illness Consult date: 05/11/16 Reason for Consult: Patient admitted with closed head injury and seizure disorder. History of Present Illness: This patient is a 51-year-old right-handed white male who was just recently discharged from Hospital after having questionable seizure and passing out spell in his front yard. He was admitted to hospital last week for further evaluation. He has underlying history of alcohol abuse and alcohol related seizure disorder. He has been taking Keppra monotherapy for seizure prophylaxis. During his last admission he underwent a routine EEG which was reviewed at the time and was within normal limits for his age with no active seizure focus. Patient apparently was doing well and was with his friend shopping at the [employer]. He apparently passed out and fell forward and struck a "crack. He sustained a laceration to the right orbital region. He was brought into the emergency room at [facility] for further evaluation yesterday. He was seen in the ER by Dr. Jonas. He was sent for a computed tomography scan of the brain and cervical spine. CAT scan of the brain revealed no acute intracranial abnormality. Atrophy of the frontal region was noted. Cervical spine CAT scan was reported normal. Patient does take Keppra he states on a regular basis. He is currently on Keppra thousand milligrams twice a day. He did require suturing of the right eyebrow. He denies any headache at this time. His blood alcohol level yesterday in the ER was very elevated at 382. He is once again advised to seek out help from a drug rehab unit to help him with his alcohol addiction. Patient denies any headache or focal weakness at this time. Neurology is now consulted for further evaluation and recommendations. Review of Systems Constitutional: Denies chills, Denies fever Eyes: denies blurred vision, denies pain Ears, nose, mouth and throat: Denies headache, Denies sore throat Cardiovascular: Denies chest pain, Denies shortness of breath Respiratory: Denies cough Gastrointestinal: Denies abdominal pain, Denies diarrhea, Denies nausea, Denies vomiting Musculoskeletal: Denies myalgias Integumentary: Denies pruritus, Denies rash Neurological: Reports change in mentation, Reports memory loss, Reports seizures , Denies numbness, Denies weakness Psychiatric: Denies anxiety, Denies depression Endocrine: Denies fatigue, Denies weight change Past Medical History Past Medical History: COPD, Hypertension, Neurologic Disorder, Osteoarthritis ( OA), Seizure Disorder Additional Past Medical History / Comment(s): etoh abuse chronic back pain tinnitus,head injur 1.5 years ago-fell down stairs hit head, statd has had blance issues and short term memory issues. History of Any Multi-Drug Resistant Organisms: None Reported Past Surgical History: No Surgical Hx Reported Additional Past Surgical History / Comment(s): wisdom teeth removed Past Anesthesia/Blood Transfusion Reactions: No Reported Reaction Past Psychological History: Anxiety, Depression Smoking Status: Current every day smoker Past Alcohol Use History: Abuse, Daily, Heavy Additional Past Alcohol Use History / Comment(s): 1 pack of cig lasts 4 days, hx. of alcohol abuse but is "cutting back",6 beers daily maybe 4-5 days of the week but occ will binge drink Past Drug Use History: None Reported - Past Family History Mother Additional Family Medical History / Comment(s): Dementia Father Family Medical History: Cancer Additional Family Medical History / Comment(s): Colon CA Medications and Allergies Home Medications Medication Instructions Recorded Confirmed Type Multivitamin [Multivitamins Adult 1 tab PO DAILY 10/30/14 05/11/16 History Gummies] PARoxetine HCL [Paroxetine HCl] 20 mg PO DAILY 06/12/15 05/11/16 History amLODIPine BESYLATE [Amlodipine 5 mg PO DAILY 06/12/15 05/11/16 History Besylate] cloNIDine HCL 0.3 mg PO TID 06/12/15 05/11/16 History Meloxicam [Mobic] 7.5 mg PO BID 10/04/15 05/11/16 History Montelukast [Singulair] 10 mg PO HS 10/04/15 05/11/16 History levETIRAcetam 1,000 mg PO BID 10/04/15 05/11/16 History Fluticasone/Salmeterol [Advair 1 puff INHALATION RT-BID 11/14/15 05/11/16 History 250-50 Diskus] Gabapentin [Neurontin] 100 mg PO BID 05/05/16 05/11/16 History Thiamine [Vitamin B-1] 100 mg PO DAILY 05/05/16 05/11/16 History Pregabalin [Lyrica] 75 mg PO BID 05/10/16 05/11/16 History Allergies Allergy/AdvReac Type Severity Reaction Status Date / Time No Known Allergies Allergy Verified 05/11/16 01:50 Physical Examination - Vital Signs Vital Signs: Vital Signs Temp Pulse Pulse Resp BP BP BP 05/11/16 11:55 98.3 F 60 18 143/79 05/11/16 08:00 18 05/11/16 07:57 97.9 F 79 18 138/84 05/11/16 04:00 98.1 F 62 18 120/70 05/11/16 00:00 74 18 05/10/16 23:46 74 18 109/61 05/10/16 20:00 78 18 05/10/16 19:50 97.9 F 81 18 123/58 05/10/16 18:06 97.8 F 85 18 152/81 05/10/16 17:03 98.1 F 99 20 148/56 Pulse Ox 05/11/16 11:55 94 L 05/11/16 08:00 05/11/16 07:57 95 05/11/16 04:00 95 05/11/16 00:00 05/10/16 23:46 91 L 05/10/16 20:00 05/10/16 19:50 93 L 05/10/16 18:06 96 05/10/16 17:03 99 Intake and Output 05/10/16 05/11/16 05/11/16 22:59 06:59 14:59 Intake Total 2300 1100 620 Balance 2300 1100 620 Intake: IV 500 800 Sodium Chloride 0.9% 1, 500 800 000 ml @ 100 mls/hr IV . Q10H7M ONE with Mvi, Adult No.4 with Vit K 10 ml with Thiamine 100 mg with Folic Acid 1 mg Rx#: [id number] Oral 1800 300 620 Other: Voiding Method Toilet Toilet Toilet # Voids 1 Weight 84 kg - Constitutional General appearance: average body habitus, cooperative - EENT EENT: mucous membranes moist - Respiratory Respiratory: lungs clear, normal breath sounds - Cardiovascular Cardiovascular: regular rate, normal S1, normal S2 Extremities: no peripheral edema bilaterally - Gastrointestinal Gastrointestinal: normoactive bowel sounds - Neurologic Cranial nerve examination: PERRL, EOMI, VFF, V1/V2/V3 grossly intact, face symmetric, tongue midline, intact gag reflex, intact corneal reflex, normal palatal elevation Speech examination: intact Sensorimotor examination: intact Detailed motor examination: grossly full strength in all extremities Detailed sensory examination: intact Reflex and gait examination: intact Reflexes: 1+: ankle, bicep, knee, tricep - Musculoskeletal Musculoskeletal: no pain - Psychiatric Psychiatric: mood/affect appropriate, cooperative Results - Laboratory Findings CBC and BMP: 05/10/16 14:30 05/10/16 14:30 Assessment and Plan (1) Complex partial epilepsy Status: Acute Code(s): G40.209 - LOCAL-REL SYMPTC EPI W CMPLX PRT SEIZ,NOT NTRCT,W/O STAT EPI (2) Alcohol intoxication Status: Acute Code(s): F10.129 - ALCOHOL ABUSE WITH INTOXICATION, UNSPECIFIED (3) Facial laceration Status: Acute Code(s): S01.81XA - LACERATION W/O FOREIGN BODY OF OTH PART OF HEAD, INIT ENCNTR (4) History of subdural hematoma Status: Acute Code(s): Z86.79 - PERSONAL HISTORY OF OTHER DISEASES OF THE CIRCULATORY SYSTEM Plan: This patient is a 51-year-old male who was admitted through the emergency room at [facility] yesterday after he had a fall at the local [employer] store. He apparently fell forward and struck a "crack. He sustained a laceration to the right periorbital region. He was brought into the emergency room yesterday where he was evaluated in the ER by Dr. Jonas. CAT scan of the brain and cervical spine were completed and are as noted above. No evidence of any acute stroke or hemorrhage. CT of the cervical spine was normal. Patient's blood alcohol level in the ER yesterday was elevated at 382. He has a history of alcohol abuse as well as alcohol related seizure disorder. He is currently on Keppra monotherapy for treatment. His neurological examination at this time is nonfocal. This patient likely had alcohol related withdrawal seizure. He is to continue on his current dose of Keppra. We will obtain a Keppra blood level tomorrow morning. His recent EEG which was performed last week was within normal limits with no active seizure focus. We will continue close neurological follow-up with this patient during this admission. He is advised of the [employer] driving law which states he cannot drive. Ear to 6 months following seizure. His overall prognosis at this time remains guarded. We have recommended the patient to seek out community services and drug rehabilitation for alcohol cessation. Patient states he will consider this once he is discharged. His overall prognosis as mentioned remains very guarded. Time with Patient: Greater than 30
[2016-05-11 19:25] VITALS: BP 135/74; PULSE 53; TEMP 98
--- NOTE | 2016-05-11 19:54 | HP ---
DATE OF ADMISSION: 05/10/2016 CHIEF COMPLAINT: A 51-year-old white male came to the emergency room while out shopping. Apparently he hit his head on a clothes meat hanger and he had a laceration to his right eye, ( ) history of seizures, he came in intoxicated. He states his depression is worse than usual over some anniversary of somebody who . Denied any bowel or bladder dysfunction, chest pain, nausea, vomiting. He was placed in C-collar in the ER. Home medicines: 1. Paroxetine for depression. 2. Multivitamin. 3. Amlodipine for hypertension 5 mg daily. 4. Clonidine 0.3 t.i.d. for blood pressure. 5. Mobic for arthritis 7.5 b.i.d. 6. Singulair 10 mg daily. 7. Levetiracetam 1000 b.i.d. for seizures. 8. Advair 250/50 1 puff b.i.d. 9. Neurontin 100 b.i.d. 10. Lyrica 75 b.i.d. 11. Thiamine 100 daily. Fourteen-point review of systems negative except for as mentioned in HPI. SOCIAL HISTORY: Heavy alcohol abuse daily. Current every day smoker, anxiety, depression, 1 pack of cigarettes lasts 4 days, alcohol abuse, drinks 6 beers a day 4 to 5 times a week beer binge drinking. FAMILY HISTORY: Cancer, colon cancer. PHYSICAL EXAM: Vital signs are reviewed. Thin, cachectic. In no apparent distress. Mild abrasion above the right elbow. ENT: Ear canals within normal limits. CARDIOVASCULAR: S1 and S2. LUNGS: Clear except for mild wheeze. GI: Soft. HEMATOLOGIC: Negative Homans. PSYCHIATRIC: Fair mood and affect. NEUROLOGIC: Alert and oriented x3. No tremor. SKIN: Warm and clear, dry and intact. Sodium 147, potassium 4.4, sodium of ( ) 9.8. Hemoglobin is 13.2. ASSESSMENT: 1. Alcohol intoxication. 2. Fall. 3. Seizures. 4. Facial lacerations. 5. Depression, anxiety. Home medication continued, [facility] protocol. Possible discharge home in next 24 hours if stable.
[2016-05-11] MEDS: MONTELUKAST 10 MG TAB PO SCH (20:41)
--- NOTE | 2016-05-12 17:50 | DS ---
DATE OF ADMISSION: 05/10/2016 DATE OF DISCHARGE: 05/11/2016 DISCHARGE DIAGNOSES: 1. Alcohol intoxication. 2. Facial laceration. 3. Fall. 4. Seizure history. 5. History of subdural hematoma. DISCHARGE MEDICATIONS: 1. Multivitamin daily. 2. Paroxetine 20 mg daily. 3. Amlodipine 5 mg daily. 4. Clonidine 0.3 mg t.i.d. 5. Mobic 7.5 b.i.d. 6. Singulair 10 mg daily. 7. Levetiracetam 1000 b.i.d. 8. Advair 250/50 one puff b.i.d. 9. Neurontin 100 b.i.d. 10. Thiamine daily. CONDITION: Stable. PROGNOSIS: Guarded. Ambulate as tolerated. HOSPITAL COURSE OF EVENTS: White male came to the hospital with alcohol withdrawal intoxication. He is up eating well today. No tremors. No signs of delirium tremens or any anxiety. He states he does not want to go to [place] for alcohol rehab. He states he is going to quit smoking on his own at this time. Patient will continue on hypertension medication as a medication, seizure medication.
== END 2016-05-11 21:00 | disposition home or self-care (01) ==
LOC: EC 13:53 → 3OBS 16:51
PROVIDERS: ADMIT Family Medicine; ATTEND Family Medicine
DX: F10.129 Alcohol abuse with intoxication, unspecified (principal); Y90.8 Blood alcohol level of 240 mg/100 ml or more; S01.111A Laceration without foreign body of right eyelid and periocular area, initial encounter; W18.09XA Striking against other object with subsequent fall, initial encounter; Y93.89 Activity, other specified; F17.210 Nicotine dependence, cigarettes, uncomplicated; G40.209 Localization-related (focal) (partial) symptomatic epilepsy and epileptic syndromes with complex partial seizures, not intractable, without status epilepticus; F32.9 Major depressive disorder, single episode, unspecified; F41.9 Anxiety disorder, unspecified; I10 Essential (primary) hypertension; J44.9 Chronic obstructive pulmonary disease, unspecified; M19.90 Unspecified osteoarthritis, unspecified site; Z79.899 Other long term (current) drug therapy; Z86.79 Personal history of other diseases of the circulatory system; Z79.51 Long term (current) use of inhaled steroids; R29.90 Unspecified symptoms and signs involving the nervous system
CPT/HCPCS: 12011 ×2; 96360 ×2; 99285 ×2; 36415; 94640 ×2; 94760; 93005; 80053; 80177; 85025; 81003; 80320; 72125; 70450; G0378 ×2; J3411; 96361; 96365; 96366

== ENCOUNTER 2016-05-25 08:30 | Inpatient (IN) | payer OTHER ==
[2016-05-25] MEDS ORDERED: IPRATROPIUM-ALBUTEROL 3 ML NEB INHALATION STA (08:45)
[2016-05-25] MEDS ORDERED: ACETAMINOPHEN TAB 500 MG TAB PO STA (08:50)
--- NOTE | 2016-05-25 08:51 | ED ---
General Adult HPI - General Source: patient, RN notes reviewed Mode of arrival: wheelchair Limitations: no limitations <Alexsander Rowell - Last Filed: 05/25/16 11:07> <Alvarado Cristobal - Last Filed: 05/25/16 11:29> - General Chief complaint: Upper Respiratory Infection Stated complaint: CHEST PAIN Time Seen by Provider: 05/25/16 08:42 - History of Present Illness Initial comments: 51-year-old male present emergency Department chief complaint of cough, congestion, chest pain is not feeling well. Patient states that his been sick over the last 4-5 days. Patient does have a history of COPD states that he has not been smoking since his been sick for 5 days. Patient states that he has some pain in his chest when he takes a deep inspiration or when he coughs but states she has no chest pain otherwise. Patient denies any nausea, vomiting diarrhea constipation. Patient states that he has not been drinking since his last ER visit. Patient states that he did not know he had a fever but is febrile on triage. Patient states his cough is productive with sputum. Patient states she just Y nose denies sore throat, ear pain. (Alexsander Rowell) - Related Data Home Medications Medication Instructions Recorded Confirmed Multivitamin [Multivitamins Adult 1 tab PO DAILY 10/30/14 05/25/16 Gummies] PARoxetine HCL [Paroxetine HCl] 20 mg PO DAILY 06/12/15 05/25/16 amLODIPine BESYLATE [Amlodipine 5 mg PO DAILY 06/12/15 05/25/16 Besylate] cloNIDine HCL 0.3 mg PO TID 06/12/15 05/25/16 Meloxicam [Mobic] 7.5 mg PO DAILY 10/04/15 05/25/16 Montelukast [Singulair] 10 mg PO HS 10/04/15 05/25/16 levETIRAcetam 1,000 mg PO BID 10/04/15 05/25/16 Gabapentin [Neurontin] 100 mg PO BID 05/05/16 05/25/16 Pregabalin [Lyrica] 75 mg PO BID 05/10/16 05/25/16 ARIPiprazole [Abilify] 2 mg PO DAILY 05/25/16 05/25/16 Budesonide/Formoterol Fumarate 2 puff INHALATION RT-DAILY 05/25/16 05/25/16 [Symbicort 160-4.5 Mcg Inhaler] Allergies Allergy/AdvReac Type Severity Reaction Status Date / Time No Known Allergies Allergy Verified 05/25/16 09:20 Review of Systems ROS Other: All systems not noted in ROS Statement are negative. <Alexsander Rowell - Last Filed: 05/25/16 11:07> ROS Other: All systems not noted in ROS Statement are negative. <Alvarado Cristobal - Last Filed: 05/25/16 11:29> ROS Statement: Those systems with pertinent positive or pertinent negative responses have been documented in the HPI. Past Medical History Past Medical History: COPD, Hypertension, Neurologic Disorder, Osteoarthritis ( OA), Seizure Disorder Additional Past Medical History / Comment(s): etoh abuse chronic back pain tinnitus,head injur 1.5 years ago-fell down stairs hit head, statd has had blance issues and short term memory issues. History of Any Multi-Drug Resistant Organisms: None Reported Past Surgical History: No Surgical Hx Reported Additional Past Surgical History / Comment(s): wisdom teeth removed Past Anesthesia/Blood Transfusion Reactions: No Reported Reaction Past Psychological History: Anxiety, Depression Smoking Status: Current every day smoker Past Alcohol Use History: Abuse, Daily, Heavy Additional Past Alcohol Use History / Comment(s): 1 pack of cig lasts 4 days, hx. of alcohol abuse but is "cutting back",6 beers daily maybe 4-5 days of the week but occ will binge drink Past Drug Use History: None Reported - Past Family History Mother Additional Family Medical History / Comment(s): Dementia Father Family Medical History: Cancer Additional Family Medical History / Comment(s): Colon CA <Alexsander Rowell - Last Filed: 05/25/16 11:07> General Exam Limitations: no limitations General appearance: alert, in no apparent distress Head exam: Present: atraumatic, normocephalic, normal inspection Eye exam: Present: normal appearance, PERRL, EOMI. Absent: scleral icterus, conjunctival injection, periorbital swelling ENT exam: Present: normal exam, normal oropharynx, mucous membranes moist, TM's normal bilaterally, normal external ear exam Neck exam: Present: normal inspection, full ROM. Absent: tenderness, meningismus, lymphadenopathy Respiratory exam: Present: respiratory distress ([id number]), wheezes, other (Tachypnea). Absent: normal lung sounds bilaterally, rales, rhonchi, stridor Cardiovascular Exam: Present: regular rate, normal rhythm, normal heart sounds. Absent: systolic murmur, diastolic murmur, rubs, gallop, clicks Neurological exam: Present: alert Skin exam: Present: warm, dry, intact, normal color. Absent: rash <Alexsander Rowell - Last Filed: 05/25/16 11:07> Course <Alexsander Rowell - Last Filed: 05/25/16 11:07> <Alvarado Cristobal - Last Filed: 05/25/16 11:29> Vital Signs 05/25/16 05/25/16 05/25/16 08:34 09:07 09:16 Temperature 101.2 F H 103.4 F H Pulse Rate 52 L 52 L Respiratory 24 Rate Blood Pressure 90/62 O2 Sat by Pulse 94 L Oximetry 05/25/16 05/25/16 05/25/16 09:23 10:17 11:06 Temperature 101.2 F H Pulse Rate 60 67 78 Respiratory 16 20 Rate Blood Pressure 99/61 110/65 O2 Sat by Pulse 91 L 97 Oximetry 05/25/16 11:09 Temperature 98.9 F Pulse Rate Respiratory Rate Blood Pressure O2 Sat by Pulse Oximetry - Reevaluation(s) Reevaluation #1: 05/25/16 11:28 I did personally do a [id number] evaluation the patient did review the workup in the emergency department. I did discuss case with Dr. Sejal anderson who was covering for Dr. Amadeo Childs is now back in town and covering himself. I did discuss the case with him. Patient is awake alert he is still somewhat hypotensive. He will be admitted his blood pressure has improved at this time it appears telemetry will be appropriate. (Alvarado Cristobal) EKG Findings - EKG Comments: EKG Findings:: EKG performed at 8:51 normal sinus rhythm with rate of 86, AK 132 , QRS duration 98, QT/QTC 392/469 <Alexsander Rowell - Last Filed: 05/25/16 11:07> Medical Decision Making - Lab Data Result diagrams: 05/25/16 09:05 05/25/16 09:05 <Alexsander Rowell - Last Filed: 05/25/16 11:07> - Lab Data Result diagrams: 05/25/16 09:05 05/25/16 09:05 <Alvarado Cristobal - Last Filed: 05/25/16 11:29> - Lab Data Lab Results 05/25/16 05/25/16 05/25/16 Range/Units 09:05 09:05 09:05 WBC 3.6 L (3.8-10.6) k/uL RBC 3.94 L (4.30-5.90) m/uL Hgb 13.8 (13.0-17.5) gm/dL Hct 38.4 L (39.0-53.0) % MCV 97.4 D (80.0-100.0) fL MCH 35.0 (25.0-35.0) pg MCHC 35.9 (31.0-37.0) g/dL RDW 14.3 (11.5-15.5) % Plt Count 85 L D (150-450) k/uL Neutrophils % 74 % Lymphocytes % 19 % Monocytes % 3 % Eosinophils % 0 % Basophils % 0 % Neutrophils # 2.7 (1.3-7.7) k/uL Lymphocytes # 0.7 L (1.0-4.8) k/uL Monocytes # 0.1 (0-1.0) k/uL Eosinophils # 0.0 (0-0.7) k/uL Basophils # 0.0 (0-0.2) k/uL Manual Slide Review Performed Toxic Granulation Present RBC Morphology Normal PT 10.5 (9.0-12.0) sec INR 1.0 (<1.1) APTT 29.1 (22.0-30.0) sec D-Dimer 1.91 H (<0.60) mg/L FEU Sodium 126 L (137-145) mmol/L Potassium 4.0 (3.5-5.1) mmol/L Chloride 91 L (98-107) mmol/L Carbon Dioxide 22 (22-30) mmol/L Anion Gap 13 mmol/L BUN 19 (9-20) mg/dL Creatinine 0.79 (0.66-1.25) mg/dL Est GFR (MDRD) Af Amer >60 (>60 ml/min/1.73 sqM) Est GFR (MDRD) Non-Af >60 (>60 ml/min/1.73 sqM) Glucose 109 H (74-99) mg/dL Plasma Lactic Acid Abdiel (0.7-2.0) mmol/L Calcium 8.4 (8.4-10.2) mg/dL Magnesium 1.7 (1.6-2.3) mg/dL Total Bilirubin 0.8 (0.2-1.3) mg/dL AST 294 H (17-59) U/L ALT 76 H (21-72) U/L Alkaline Phosphatase 68 (38-126) U/L Troponin I (0.000-0.034) ng/mL Total Protein 7.1 (6.3-8.2) g/dL Albumin 3.6 (3.5-5.0) g/dL Influenza Type A RNA (Not Detectd) Influenza Type B (PCR) (Not Detectd) 05/25/16 05/25/16 05/25/16 Range/Units 09:05 09:05 09:05 WBC (3.8-10.6) k/uL RBC (4.30-5.90) m/uL Hgb (13.0-17.5) gm/dL Hct (39.0-53.0) % MCV (80.0-100.0) fL MCH (25.0-35.0) pg MCHC (31.0-37.0) g/dL RDW (11.5-15.5) % Plt Count (150-450) k/uL Neutrophils % % Lymphocytes % % Monocytes % % Eosinophils % % Basophils % % Neutrophils # (1.3-7.7) k/uL Lymphocytes # (1.0-4.8) k/uL Monocytes # (0-1.0) k/uL Eosinophils # (0-0.7) k/uL Basophils # (0-0.2) k/uL Manual Slide Review Toxic Granulation RBC Morphology PT (9.0-12.0) sec INR (<1.1) APTT (22.0-30.0) sec D-Dimer (<0.60) mg/L FEU Sodium (137-145) mmol/L Potassium (3.5-5.1) mmol/L Chloride (98-107) mmol/L Carbon Dioxide (22-30) mmol/L Anion Gap mmol/L BUN (9-20) mg/dL Creatinine (0.66-1.25) mg/dL Est GFR (MDRD) Af Amer (>60 ml/min/1.73 sqM) Est GFR (MDRD) Non-Af (>60 ml/min/1.73 sqM) Glucose (74-99) mg/dL Plasma Lactic Acid Abdiel 2.7 H* (0.7-2.0) mmol/L Calcium (8.4-10.2) mg/dL Magnesium (1.6-2.3) mg/dL Total Bilirubin (0.2-1.3) mg/dL AST (17-59) U/L ALT (21-72) U/L Alkaline Phosphatase (38-126) U/L Troponin I <0.012 (0.000-0.034) ng/mL Total Protein (6.3-8.2) g/dL Albumin (3.5-5.0) g/dL Influenza Type A RNA Not Detected (Not Detectd) Influenza Type B (PCR) Not Detected (Not Detectd) Disposition <Alexsander Rowell - Last Filed: 05/25/16 11:07> <Alvarado Cristobal - Last Filed: 05/25/16 11:29> Clinical Impression: Pneumonia, Sepsis, Hyponatremia, Elevated liver function tests, COPD (chronic obstructive pulmonary disease) Disposition: ADMITTED IP TO THIS HOSP Condition: Fair Referrals: Ashwin Childs MD [Primary Care Provider] - 1-2 days
[2016-05-25] MEDS: SODIUM CHLORIDE 0.9% 2,000 ML IV ONE ×2 (09:07→09:31)
[2016-05-25 09:25] LABS: Basophils % (A) 0 %; CH 35.5; CHCM 36.6; Eosinophils % (A) 0 %; HCT 38.4 % (39.0-53.0); HDW 2.64; HGB 13.8 gm/dL (13.0-17.5); Luc % (Auto) 3; Lymphocytes # (A) 0.7 k/uL (1.0-4.8); Lymphocytes % (A) 19 %; MCHC 35.9 g/dL (31.0-37.0); Mean Platelet Volume 8.1; Monocytes # (A) 0.1 k/uL (0-1.0); Monocytes % (A) 3 %; Neutrophils # (A) 2.7 k/uL (1.3-7.7); Neutrophils % (A) 74 %; RBC 3.94 m/uL (4.30-5.90); RDW 14.3 % (11.5-15.5); WBC 3.6 k/uL (3.8-10.6)
[2016-05-25 09:32] LABS: MCV 97.4 fL (80.0-100.0)
[2016-05-25 09:35] LABS: ALT 76 U/L (21-72); AST 294 U/L (17-59); Alkaline Phosphatase 68 U/L (38-126); Anion Gap 13 mmol/L; Blood Urea Nitrogen 19 mg/dL (9-20); Calcium 8.4 mg/dL (8.4-10.2); Carbon Dioxide 22 mmol/L (22-30); Chloride 91 mmol/L (98-107); Glucose 109 mg/dL (74-99); Magnesium 1.7 mg/dL (1.6-2.3); Non-African American GFR(MDRD) >60 (>60 ml/min/1.73 sqM); Sodium 126 mmol/L (137-145); Total Bilirubin 0.8 mg/dL (0.2-1.3); Total Protein 7.1 g/dL (6.3-8.2)
[2016-05-25 09:38] LABS: Partial Thromboplastin Time 29.1 sec (22.0-30.0); Prothrombin Time 10.5 sec (9.0-12.0)
[2016-05-25 09:41] LABS: Manual Review Performed
[2016-05-25 09:42] LABS: RBC Morphology Normal; Toxic Granulation Present
[2016-05-25] MEDS ORDERED: RX INFO: IV CONTRAST WAS GIVEN 1 EACH MISC MISCELLANE PRN (09:45)
--- NOTE | 2016-05-25 10:06 | XR ---
EXAMINATION TYPE: XR chest 2V DATE OF EXAM: 05/25/2016 10:01 AM COMPARISON: Prior chest x-ray 04 October 2015 HISTORY: Cough and pain TECHNIQUE: Frontal and lateral views of the chest are obtained. FINDINGS: Airspace disease is present in the right upper lobe, right lower lobe. No pneumothorax or pleural effusion. Cardiac mediastinal silhouette, pulmonary vascularity and dina are within normal li mits. Prominent lung volumes suggest COPD. IMPRESSION: Correlate for pneumonia. Follow-up to resolution.
[2016-05-25] MEDS ORDERED: LEVOFLOXACIN 750MG-D5W PMX 750 MG in DEXTROSE/WATER 1 150ML.BAG IVPB STA (10:14)
[2016-05-25] MEDS ORDERED: SODIUM CHLORIDE 0.9% 1,000 ML IV ONE (10:19)
--- NOTE | 2016-05-25 11:04 | CT ---
EXAMINATION TYPE: CT chest angio for PE DATE OF EXAM: 05/25/2016 10:45 AM COMPARISON: Chest x-ray same date HISTORY: SOB, pneumonia CT DLP: 320.8 mGycm Automated exposure control for dose reduction was used. CONTRAST: CT Chest for pulmonary embolism performed with with IV Contrast, patient injected with 100 mL of Omni paque 350. FINDINGS: LUNGS: Airspace disease is again seen in the right upper lobe as on plain film as well as right lower lobe and possibly left lower lobe MEDIASTINUM: There is satisfactory enhancement of the pulmonary artery and segmental branches in the right lower lobe, axial image 101 shows low attenuation which may be due to poor enhancement rather t garnett luminal filling defect, other segmental branches in the right and left lung shows similar appeara nce. There are no greater than 1 cm mediastinal lymph nodes, right hilar adenopathy suspected. No pericardial effusion is seen. AORTA: No additional significant abnormality is seen. OTHER: There are coronary artery calcifications. No pleural or pericardial effusion. Cortical thicke fozia of the left clavicle is due to old fracture. Liver shows low attenuation likely due to fatty inf iltration. IMPRESSION: Trilobar pneumonia favored, correlate to exclude congestive heart failure. Pulmonary embolism is not excluded as described. Additional findings above.
[2016-05-25] MEDS ORDERED: PIPERACILLIN-TAZOBACTAM 3.375 GM in DEXTROSE/WATER 1 50ML.BAG IVPB STA (11:07)
[2016-05-25] MEDS ORDERED: PNEUMONIA PROTOCOL UTILIZED 1 EACH MISC PO PRN (11:09)
[2016-05-25] MEDS ORDERED: HEPARIN SODIUM,PORCINE 5,000 UNIT/ML 1 ML VIAL SQ STA (11:27)
[2016-05-25] MEDS ORDERED: LORazepam 2 MG/ML SYRINGE IV PRN ×2 (11:31)
[2016-05-25] MEDS: SODIUM CHLORIDE 0.9% 1,000 ML IV SCH ×2 (11:51→21:14)
[2016-05-25] MEDS: LORazepam 2 MG/ML SYRINGE IV PRN ×6 (13:37→23:59)
[2016-05-25] MEDS ORDERED: PNEUMOCOCCAL VACC-PNEUMOVAX 23 25 MCG/0.5 ML VIAL IM ONE (15:08)
[2016-05-25] MEDS: HEPARIN SODIUM,PORCINE 5,000 UNIT/ML 1 ML VIAL SQ SCH (15:27)
[2016-05-25] MEDS: IPRATROPIUM-ALBUTEROL 3 ML NEB INHALATION PRN ×2 (15:27→20:14)
[2016-05-25] MEDS: ACETAMINOPHEN TAB 325 MG TAB PO PRN (15:27)
[2016-05-25] MEDS: cloNIDine HCL 0.1 MG TAB PO SCH ×2 (15:57→21:14)
[2016-05-25] MEDS: GABAPENTIN 100 MG CAP PO SCH (21:14)
[2016-05-25] MEDS: MONTELUKAST 10 MG TAB PO SCH (21:14)
[2016-05-25] MEDS: PREGABALIN 75 MG CAP PO SCH (21:14)
[2016-05-25] MEDS: levETIRAcetam 500 MG TAB PO SCH ×2 (21:14→21:20)
[2016-05-25] MEDS: PIPERACILLIN-TAZOBACTAM 3.375 GM in DEXTROSE/WATER 1 50ML.BAG IVPB SCH (21:14)
[2016-05-26] MEDS: LORazepam 2 MG/ML SYRINGE IV PRN ×6 (00:30→05:50)
[2016-05-26] MEDS ORDERED: Potassium Replacement Protocol 1 EACH MISC MISCELLANE PRN ×2 (00:33→02:37)
[2016-05-26] MEDS ORDERED: Phosphorus Replacement Protoco 1 EACH MISC MISCELLANE PRN (00:33)
[2016-05-26] MEDS ORDERED: Magnesium Replacement Protocol 1 EACH MISC MISCELLANE PRN (00:33)
[2016-05-26] MEDS ORDERED: IBUPROFEN 800 MG TAB PO PRN (00:33)
[2016-05-26] MEDS ORDERED: ACETAMINOPHEN IV (For NPO) 1,000 MG in EMPTY BAG 1 BAG IVPB PRN (00:33)
[2016-05-26 00:34] LABS: Glucose,Whole Blood 109 mg/dL (75-99)
[2016-05-26 00:56] LABS: ABG Base Excess -3.2 mmol/L; ABG HCO3 20 mmol/L (21-25); ABG PCO2 29 mmHg (35-45); ABG PH 7.46 (7.35-7.45); ABG PO2 78 mmHg (83-108); ABG TCO2 21 mmol/L (19-24)
[2016-05-26] MEDS: MAGNESIUM SULFATE-D5W PMX 1 GM in DEXTROSE/WATER 1 100ML.BAG IVPB SCH ×2 (01:20→02:50)
[2016-05-26 01:28] LABS: Appearance,Urine Clear (Clear); Bilirubin,Urine Negative (Negative); Glucose,Urine (UA) Negative (Negative); Ketones,Urine Negative (Negative); Leukocyte Esterase,Urine Negative (Negative); Mucus,Urine Rare /hpf; Nitrite,Urine Negative (Negative); PH, Urine 6.5 (5.0-8.0); Particle Count 1755; Protein,Urine 1+ (Negative); Specific Gravity,Urine 1.011 (1.001-1.035); UA Billing (MACRO vs. MICRO) MICRO; Urobilinogen,Urine <2.0 mg/dL (<2.0); WBC,Urine 1 /hpf (0-5)
[2016-05-26 01:32] LABS: Basophils % (A) 1 %; CH 34.8; CHCM 33.8; Eosinophils % (A) 0 %; HCT 43.1 % (39.0-53.0); HDW 2.57; Luc # (Auto) 0.13; Luc % (Auto) 3; Lymphocytes % (A) 28 %; MCH 33.6 pg (25.0-35.0); MCHC 32.5 g/dL (31.0-37.0); MCV 103.3 fL (80.0-100.0); Macrocytosis Slight; Monocytes # (A) 0.1 k/uL (0-1.0); Monocytes % (A) 3 %; Neutrophils # (A) 2.4 k/uL (1.3-7.7); Neutrophils % (A) 66 %; RBC 4.17 m/uL (4.30-5.90); RDW 14.8 % (11.5-15.5); WBC 3.7 k/uL (3.8-10.6); WBC (Perox) 3.64
[2016-05-26 01:45] LABS: ALT 74 U/L (21-72); AST 288 U/L (17-59); Alkaline Phosphatase 61 U/L (38-126); Anion Gap 12 mmol/L; Blood Urea Nitrogen 10 mg/dL (9-20); Calcium 8.3 mg/dL (8.4-10.2); Carbon Dioxide 21 mmol/L (22-30); Chloride 102 mmol/L (98-107); Glucose 106 mg/dL (74-99); Magnesium 1.9 mg/dL (1.6-2.3); Non-African American GFR(MDRD) >60 (>60 ml/min/1.73 sqM); Potassium 3.5 mmol/L (3.5-5.1); Sodium 135 mmol/L (137-145); Total Bilirubin 0.7 mg/dL (0.2-1.3); Total Protein 6.9 g/dL (6.3-8.2)
[2016-05-26] MEDS ORDERED: PROPOFOL 10 MG/ML 20 ML VIAL IV ONE (02:01)
[2016-05-26] MEDS ORDERED: PROPOFOL 50 ML IV ONE (02:08)
[2016-05-26] MEDS ORDERED: NOREPINEPHRIN 4 MG-0.9% NS PMX 4 MG/250 ML ML IV ONE (02:47)
--- NOTE | 2016-05-26 02:49 | XR ---
EXAM: XR Chest, 1 View. CLINICAL HISTORY: Respiratory distress TECHNIQUE: Frontal view of the chest. COMPARISON: CT 05/25/2016 FINDINGS: Lungs: Patchy bilateral opacities. Pleural space: Unremarkable. No pneumothorax. Heart: Unremarkable. No cardiomegaly. Mediastinum: Unremarkable. Bones/joints: No acute osseous abnormality. Tubes, lines and devices: Endotracheal tube terminates approximately 4 cm above the jesús. Esophagogastric tube traverses the diaphragm and extends off the [id number] IMPRESSION: Endotracheal tube terminates approximately 4 cm above the jesús. No pneumothorax or additional significant interval change since prior examination.
[2016-05-26] MEDS: NOREPINEPHRIN 4 MG-0.9% NS PMX 4 MG/250 ML ML IV SCH ×3 (02:55→21:52)
[2016-05-26] MEDS: FUROSEMIDE 10 MG/ML 4 ML VIAL IV SCH ×4 (02:55→23:28)
[2016-05-26] MEDS ORDERED: PROPOFOL 1,000 MG in EMPTY BAG 1 BAG IV SCH (03:00)
[2016-05-26] MEDS: POTASSIUM CHLORIDE ORAL LIQUID 40 MEQ/30 ML CUP NG-TUBE SCH ×2 (03:04→03:46)
[2016-05-26 03:15] LABS: ABG Base Excess -4.7 mmol/L; ABG HCO3 20 mmol/L (21-25); ABG PCO2 38 mmHg (35-45); ABG PH 7.34 (7.35-7.45); ABG PO2 81 mmHg (83-108); ABG TCO2 21 mmol/L (19-24)
[2016-05-26] MEDS ORDERED: CISATRACURIUM 2 MG/ML 5 ML VIAL IV ONE ×3 (03:29→06:00)
[2016-05-26] MEDS: HEPARIN SODIUM,PORCINE 5,000 UNIT/ML 1 ML VIAL SQ SCH ×4 (03:52→23:29)
[2016-05-26] MEDS: IBUPROFEN IV 800 MG in SODIUM CHLORIDE 0.9% 250 ML IV SCH ×3 (04:31→11:58)
[2016-05-26] MEDS: methylPREDNISolone SOD SUCCI 125 MG/2 ML VIAL IV SCH ×4 (04:35→23:28)
[2016-05-26] MEDS: HYDROmorphone 1 MG/ML 1 ML SYRINGE IVP PRN ×3 (05:35→10:40)
[2016-05-26] MEDS: PIPERACILLIN-TAZOBACTAM 3.375 GM in DEXTROSE/WATER 1 50ML.BAG IVPB SCH ×3 (06:42→21:51)
[2016-05-26 07:19] LABS: Basophils % (A) 0 %; CH 34.5; CHCM 33.4; Eosinophils % (A) 0 %; HCT 46.1 % (39.0-53.0); HDW 2.65; HGB 14.9 gm/dL (13.0-17.5); Luc # (Auto) 0.07; Luc % (Auto) 1; Lymphocytes # (A) 0.4 k/uL (1.0-4.8); Lymphocytes % (A) 7 %; MCH 33.5 pg (25.0-35.0); MCHC 32.2 g/dL (31.0-37.0); MCV 103.8 fL (80.0-100.0); Macrocytosis Slight; Mean Platelet Volume 7.9; Monocytes # (A) 0.2 k/uL (0-1.0); Monocytes % (A) 3 %; Neutrophils # (A) 5.9 k/uL (1.3-7.7); Neutrophils % (A) 89 %; RBC 4.44 m/uL (4.30-5.90); RDW 14.9 % (11.5-15.5); WBC 6.6 k/uL (3.8-10.6); WBC (Perox) 6.76
[2016-05-26 07:37] LABS: ALT 76 U/L (21-72); AST 295 U/L (17-59); Alkaline Phosphatase 64 U/L (38-126); Anion Gap 13 mmol/L; Blood Urea Nitrogen 10 mg/dL (9-20); Calcium 7.9 mg/dL (8.4-10.2); Carbon Dioxide 20 mmol/L (22-30); Chloride 106 mmol/L (98-107); Glucose 163 mg/dL (74-99); Non-African American GFR(MDRD) >60 (>60 ml/min/1.73 sqM); Potassium 4.1 mmol/L (3.5-5.1); Sodium 139 mmol/L (137-145)
[2016-05-26 07:41] LABS: Glucose,Whole Blood 207 mg/dL (75-99)
--- NOTE | 2016-05-26 08:06 | XR ---
EXAMINATION TYPE: XR chest 1V portable DATE OF EXAM: 05/26/2016 6:57 AM Comparison: 05/26/2016 Clinical History: 51-year-old male with tube placement Findings: ET tube is satisfactory. NG tube courses below the diaphragm. The heart is normal size. Continued pat samara infiltrate at the left base and increasing consolidation centered in the right midlung. No signif icant pleural effusion seen. Impression: Increasing consolidation within the right lung and continued left basilar infiltrate. Correlate for m ultifocal pneumonia.
[2016-05-26] MEDS: CHLORHEXIDINE GLUCONATE 15 ML CUP MUCOUS MEM SCH ×2 (08:40→20:35)
[2016-05-26] MEDS: levETIRAcetam 500 MG TAB PO SCH ×2 (08:41→20:36)
[2016-05-26] MEDS: ARIPiprazole 2 MG TAB PO SCH (08:41)
[2016-05-26] MEDS: PARoxetine 20 MG TAB PO SCH (08:41)
[2016-05-26] MEDS: MULTIVITAMINS, THERA 1 EACH TAB PO SCH (08:41)
[2016-05-26] MEDS: PREGABALIN 75 MG CAP PO SCH ×2 (08:48→20:50)
[2016-05-26] MEDS ORDERED: MELOXICAM 7.5 MG TAB PO SCH (09:00)
[2016-05-26] MEDS ORDERED: amLODIPine 5 MG TAB PO SCH (09:00)
--- NOTE | 2016-05-26 10:21 | CT ---
EXAMINATION TYPE: CT brain wo con DATE OF EXAM: 05/26/2016 10:00 AM COMPARISON: 05/10/2016, 05/05/2016, 12/24/2015 INDICATION: Patient unresponsive and sedated at time of exam. Mental status changes. DLP: 771.5 mGycm, Automated exposure control for dose reduction was used. CONTRAST: None CT of the brain is performed utilizing 3 mm thick sections through the posterior fossa and 3 mm thick sections through the remaining calvarium. Study is not performed within 24 hours of arrival to the hospital. No abnormal hyperdensity is present to suggest an acute intracranial hemorrhage. No mass lesion is evident. No acute infarcts are evident. Periventricular white matter hypodensity is present, likely on the bas is of mild chronic white matter ischemic changes. There is prominence of the left extra-axial space. Subdural hygroma should be considered. Chronic subdural hematoma could be considered. This has a maxi mum depth of 1.7 cm near the parietal vertex. No midline shift is evident. Mild effacement of the adj acent sulci is present. Mild extra-axial space prominence adjacent to the right frontal lobe is prese nt. Ventricles and sulci are slightly prominent for the patient age. Paranasal sinuses and mastoid air cells within the [id number] are clear. IMPRESSIONS: 1. Left subdural hygroma. Chronic subdural hematoma could be considered. The finding is stable from 05/10/2016. 2. No acute intracranial process. 3. Mild age-related atrophy.
--- NOTE | 2016-05-26 10:22 | HP ---
DATE OF ADMISSION: Ashwin Childers . CHIEF COMPLAINT: A 51-year-old white male with respiratory distress. HISTORY OF PRESENT ILLNESS: A 51-year-old white male with a history of alcoholism and alcohol withdrawal at least 3 times in the last month for which he was admitted. He has been sick over the last 4 to 5 days. He has history of COPD as he has been a significant nicotine smoker for many years also. Due to increased respiratory distress, elevated D-dimer and CTA show any trilobar pneumonia in the right lobe he was admitted to the hospital. He has had a fever of 101 on admission, also. Started on broad-spectrum antibiotics, updraft treatments, steroids, and increased confusion tonight. I discussed with the nurse drug and alcohol level and put him on alcohol withdrawal protocol that he normally takes, unsure, he appears to be confused with his review of systems. He is suppose to be taking medication egan: 1. Paroxetine 20 mg daily. 2. Multivitamin daily. 3. Amlodipine 5 mg daily for hypertension. 4. Clonidine 0.3 t.i.d. for hypertension. 5. Mobic 7.5 mg daily. 6. Singular 10 mg daily. 7. Levetiracetam 1000 b.i.d. 8. Neurontin 100 b.i.d. 9. Lyrica 75 b.i.d. 10. Abilify 2 mg daily. 11. Symbicort 160/4.5 two puffs b.i.d. ALLERGIES: No known drug allergies. Fourteen-point review of systems negative except for as mentioned in HPI. SOCIAL HISTORY: Current every day smoker, heavy alcohol abuse daily. He drinks at least 6 beers a day. He binge drinks on top of that. FAMILY HISTORY: Mom had dementia and father colon cancer. PHYSICAL EXAM: He has increased respiratory distress, respiratory rate 25 to 35, T-max 101, blood pressure 90 to 110 systolic. CARDIOVASCULAR: S1, S2, tachy. LUNGS: Scattered wheezes and rhonchi x4. GI: Soft. EXTREMITIES: No cyanosis, clubbing, edema. VASCULAR: Normal dorsalis pedis, posterior tibial and radial pulse. INTEGUMENT: He appears rough looking. He has abrasions over his facial area. He is mumbling and gurgling. On neurologic exam, he is ( ), answers appropriately but then he is confused. His pulse rate is in the 50s as mentioned, blood pressure 90s to 100 systolic. O2 is in the low 90s on 2 L. EKG shows sinus rhythm. White count low at 3.8. Sodium 125, hemoglobin 13.8. Elevated lactic acid. ASSESSMENT: 1. Trilobar pneumonia. 2. Sepsis. 3. Hyponatremia. 4. Elevated liver enzymes. 5. Alcohol withdrawal. 6. Acute chronic obstructive pulmonary disease exacerbation. PLAN: Admit the patient, IV steroids, IV antibiotics, albuterol and Atrovent updrafts. Continue current treatments. Pulmonary consult, Neurology consult.
[2016-05-26 10:41] LABS: Hemoglobin A1C 5.9 % (4.2-6.1)
[2016-05-26] MEDS: CISATRACURIUM 200 MG in SODIUM CHLORIDE 0.9% 180 ML IV SCH ×2 (11:42→12:30)
[2016-05-26] MEDS: cloNIDine HCL 0.1 MG TAB PO SCH ×3 (11:44→23:27)
[2016-05-26] MEDS: LEVOFLOXACIN 750MG-D5W PMX 750 MG in DEXTROSE/WATER 1 150ML.BAG IVPB SCH (11:55)
[2016-05-26] MEDS: INSULIN LISPRO (humaLOG) 300 UNIT/3 ML VIAL SQ SCH ×4 (11:56→20:52)
[2016-05-26] MEDS: GABAPENTIN 100 MG CAP PO SCH ×2 (11:56→20:37)
[2016-05-26] MEDS: SODIUM CHLORIDE 0.9% 1,000 ML IV SCH ×2 (11:58→16:11)
[2016-05-26 12:17] LABS: Glucose,Whole Blood 199 mg/dL (75-99)
[2016-05-26] MEDS: IPRATROPIUM-ALBUTEROL 3 ML NEB INHALATION SCH ×2 (14:08→19:37)
--- NOTE | 2016-05-26 14:32 | P.CNPUL ---
History of Present Illness Consult date: 05/26/16 Requesting physician: Ashwin Childs Reason for consult: pneumonia, other Chief complaint: ICU mangement History of present illness: This is a 51-year-old male who is being evaluated and examined today in the intensive care unit. Patient originally came into the emergency room with increased shortness of breath and some confusion. This patient has known to have multiple readmissions with alcoholism and alcohol withdrawals. Patient was noted to have a fever of 101 on admission he was started on broad-spectrum antibiotics, updrafts, and steroids. Patient's lactic acid level was 2.7, Patient was also noted to have an elevated d-dimer however CTA was performed and showed a trilobar pneumonia, congestive heart failure, pulmonary embolism could not be excluded. Patient was originally admitted to medical surgical floor and had some increase in confusion and some respiratory distress therefore he was transferred up to the ICU. Subsequently the patient was intubated and has propofol for sedation. Upon examination the patient is not inSync with mechanical ventilation, patient requiring nimbex. Ventilator settings on assist mode respiratory rate of 16 volume 500 FiO2 100% and PEEP of 5. The patient has just returned from a CT of the brain and those results are pending. The patient is requiring Levophed for hypotension. Review of Systems Review of systems is cannot be completed as the patient is sedated with propofol. Past Medical History Past Medical History: COPD, Hypertension, Osteoarthritis (OA), Seizure Disorder Additional Past Medical History / Comment(s): etoh abuse, chronic back pain, tinnitus, neuropathy, head injur 1.5 years ago-fell down stairs hit head, statd has had blance issues and short term memory issues. History of Any Multi-Drug Resistant Organisms: None Reported Past Surgical History: No Surgical Hx Reported Additional Past Surgical History / Comment(s): wisdom teeth removed Past Anesthesia/Blood Transfusion Reactions: No Reported Reaction Past Psychological History: Anxiety, Depression Smoking Status: Current every day smoker Past Alcohol Use History: Abuse, Daily, Heavy Additional Past Alcohol Use History / Comment(s): 1 pack of cig lasts 4 days, hx. of alcohol abuse but is "cutting back",6 beers daily maybe 4-5 days of the week but occ will binge drink Past Drug Use History: None Reported - Past Family History Mother Additional Family Medical History / Comment(s): Dementia Father Family Medical History: Cancer Additional Family Medical History / Comment(s): Colon CA Medications and Allergies Home Medications Medication Instructions Recorded Confirmed Type Multivitamin [Multivitamins Adult 1 tab PO DAILY 10/30/14 05/25/16 History Gummies] PARoxetine HCL [Paroxetine HCl] 20 mg PO DAILY 06/12/15 05/25/16 History amLODIPine BESYLATE [Amlodipine 5 mg PO DAILY 06/12/15 05/25/16 History Besylate] cloNIDine HCL 0.3 mg PO TID 06/12/15 05/25/16 History Meloxicam [Mobic] 7.5 mg PO DAILY 10/04/15 05/25/16 History Montelukast [Singulair] 10 mg PO HS 10/04/15 05/25/16 History levETIRAcetam 1,000 mg PO BID 10/04/15 05/25/16 History Gabapentin [Neurontin] 100 mg PO BID 05/05/16 05/25/16 History Pregabalin [Lyrica] 75 mg PO BID 05/10/16 05/25/16 History ARIPiprazole [Abilify] 2 mg PO DAILY 05/25/16 05/25/16 History Budesonide/Formoterol Fumarate 2 puff INHALATION RT-DAILY 05/25/16 05/25/16 History [Symbicort 160-4.5 Mcg Inhaler] Allergies Allergy/AdvReac Type Severity Reaction Status Date / Time No Known Allergies Allergy Verified 05/25/16 09:20 Physical Exam Vitals: Vital Signs Temp Pulse Pulse Resp BP BP Pulse Ox 05/26/16 09:15 91/65 05/26/16 09:00 52 L 15 91/65 92 L 05/26/16 08:45 56 L 15 87/61 92 L 05/26/16 08:30 55 L 17 101/70 93 L 05/26/16 08:15 56 L 19 108/70 92 L 05/26/16 08:00 98.2 F 77 21 122/78 92 L 05/26/16 07:45 51 L 17 119/80 96 05/26/16 07:30 52 L 16 118/78 96 05/26/16 07:15 52 L 16 114/75 96 05/26/16 07:00 53 L 13 108/74 96 05/26/16 06:50 55 L 13 109/72 95 05/26/16 06:40 57 L 16 95 05/26/16 06:30 60 20 94 L 05/26/16 06:20 63 20 112/76 96 05/26/16 06:10 65 22 104/69 96 05/26/16 06:00 63 22 103/70 96 05/26/16 05:50 65 26 H 102/71 97 05/26/16 05:40 66 25 H 96/66 97 05/26/16 05:30 71 38 H 103/71 97 05/26/16 05:20 76 40 H 101/69 96 05/26/16 05:10 76 41 H 102/69 96 05/26/16 05:00 80 47 H 104/71 95 05/26/16 04:50 82 49 H 103/71 95 05/26/16 04:40 88 47 H 99/72 93 L 05/26/16 04:30 100 42 H 96/69 92 L 05/26/16 04:20 108 H 43 H 106/69 93 L 05/26/16 04:10 106 H 15 110/76 95 05/26/16 04:00 102 H 109 H 16 109/75 95 05/26/16 03:50 100 F H 93 16 108/76 95 05/26/16 03:40 85 16 107/73 95 05/26/16 03:30 94 42 H 95/66 94 L 05/26/16 03:20 90 42 H 107/73 93 L 05/26/16 03:10 93 42 H 106/76 95 05/26/16 03:00 92 17 78/64 95 05/26/16 02:50 114 H 43 H 56/47 91 L 05/26/16 02:40 110 H 43 H 69/51 89 L 05/26/16 02:30 103 H 46 H 86/64 91 L 05/26/16 02:20 112 H 24 92/63 87 L 05/26/16 02:10 134 H 48 H 150/59 81 L 05/26/16 02:00 131 H 44 H 150/59 89 L 05/26/16 01:50 110 H 42 H 143/80 94 L 05/26/16 01:40 124 H 45 H 143/80 94 L 05/26/16 01:30 103.5 F H 126 H 43 H 120/87 94 L 05/26/16 01:20 123 H 46 H 120/87 94 L 05/26/16 01:10 124 H 49 H 142/93 05/26/16 01:00 137 H 41 H 142/93 05/26/16 00:50 125 H 44 H 142/93 96 05/26/16 00:40 122 H 49 H 142/93 94 L 05/26/16 00:35 109 H 16 05/26/16 00:30 111 H 46 H 142/93 95 05/26/16 00:26 103.4 F H 106 H 46 H 142/93 95 05/26/16 00:06 103.2 F H 05/25/16 23:55 109 H 05/25/16 23:42 101.1 F H 102 H 36 H 128/71 05/25/16 21:07 104 H 36 H 145/85 91 L 05/25/16 20:24 74 05/25/16 20:15 71 05/25/16 18:06 101.1 F H 05/25/16 15:37 64 05/25/16 15:27 60 95 05/25/16 15:00 101.4 F H 73 22 119/73 92 L 05/25/16 12:15 98.3 F 66 20 118/73 92 L Intake and Output 05/25/16 05/26/16 05/26/16 22:59 06:59 14:59 Intake Total 150 1103.175 305.869 Output Total 1000 1475 430 Balance -850 -371.825 -124.131 Intake: IV 100 812.5 300 ACETAMINOPHEN IV (For NPO 100 ) 1,000 mg In Empty Bag 1 bag @ 400 mls/hr IVPB Q6HR PRN Rx#:[id number] Magnesium Sulfate-D5w Pmx 200 1 gm In Dextrose/Water 1 100ml.bag @ 100 mls/hr IVPB Q1H YOHANNES Rx#: [id number] Piperacillin-Tazobactam 3 12.5 .375 gm In Dextrose/Water 1 50ml.bag @ 12.5 mls/hr IVPB ONCE STA Rx#: [id number] Sodium Chloride 0.9% 1, 100 500 300 000 ml @ 100 mls/hr IV . Q10H YOHANNES Rx#:[id number] Intake, IV Titration 50 290.675 5.869 Amount Norepinephrin 4 mg-0.9% 250.000 Ns Pmx 4 mg In 250 ml @ Titrate IV .Q0M YOHANNES Rx#: [id number] Piperacillin-Tazobactam 3 50 .375 gm In Dextrose/Water 1 50ml.bag @ 12.5 mls/hr IVPB Q8H YOHANNES Rx#: [id number] Propofol 1,000 mg In 40.675 5.869 Empty Bag 1 bag @ Titrate IV .Q0M YOHANNES Rx#: [id number] Output: Urine 1000 1475 430 Other: Voiding Method Urinal Indwelling Catheter # Voids 2 # Bowel Movements 1 GENERAL EXAM: On mechanical ventilation with propofol for sedation HEAD: Normocephalic. EYES: Normal reaction of pupils, equal size. NOSE: Clear with pink turbinates. THROAT: No erythema or exudates. NECK: No masses, no JVD. CHEST: No chest wall deformity. LUNGS: On mechanical ventilation has scattered rhonchi and wheezes throughout. CVS: S1 and S2 normal with no audible mumurs, regular rhythm. ABDOMEN: No hepatosplenomegaly, normal bowel sounds, no guarding or rigidity. EXTREMITIES: Trace edema noted, pedal pulses palpable. SKIN: No rashes CENTRAL NERVOUS SYSTEM: Currently on sedation. Results - Laboratory Findings CBC and BMP: 05/26/16 06:49 05/26/16 06:49 ABG ABG pH 7.34 (7.35-7.45) L 05/26/16 03:10 ABG pCO2 38 mmHg (35-45) 05/26/16 03:10 ABG pO2 81 mmHg (83-108) L 05/26/16 03:10 ABG O2 Saturation 95.0 % (94-97) 05/26/16 03:10 PT/INR, D-dimer PT 10.5 sec (9.0-12.0) 05/25/16 09:05 INR 1.0 (<1.1) 05/25/16 09:05 D-Dimer 1.91 mg/L FEU (<0.60) H 05/25/16 09:05 Abnormal lab findings: Abnormal Labs 05/26/16 05/26/16 05/26/16 00:31 00:48 01:00 WBC RBC MCV Plt Count Lymphocytes # ABG pH 7.46 H ABG pCO2 29 L ABG pO2 78 L ABG HCO3 20 L Sodium Carbon Dioxide Glucose POC Glucose (mg/dL) 109 H Calcium AST ALT Albumin Urine Protein 1+ H Urine Blood Moderate H Urine Mucus Rare H U Benzodiazepines Scrn 05/26/16 05/26/16 05/26/16 01:00 01:11 01:11 WBC 3.7 L RBC 4.17 L MCV 103.3 H D Plt Count 69 L Lymphocytes # ABG pH ABG pCO2 ABG pO2 ABG HCO3 Sodium 135 L Carbon Dioxide 21 L Glucose 106 H POC Glucose (mg/dL) Calcium 8.3 L AST 288 H ALT 74 H Albumin 3.4 L Urine Protein Urine Blood Urine Mucus U Benzodiazepines Scrn Detected H 05/26/16 05/26/16 05/26/16 03:10 06:49 06:49 WBC RBC MCV 103.8 H Plt Count 90 L Lymphocytes # 0.4 L ABG pH 7.34 L ABG pCO2 ABG pO2 81 L ABG HCO3 20 L Sodium Carbon Dioxide 20 L Glucose 163 H POC Glucose (mg/dL) Calcium 7.9 L AST 295 H ALT 76 H Albumin 3.3 L Urine Protein Urine Blood Urine Mucus U Benzodiazepines Scrn 05/26/16 07:39 WBC RBC MCV Plt Count Lymphocytes # ABG pH ABG pCO2 ABG pO2 ABG HCO3 Sodium Carbon Dioxide Glucose POC Glucose (mg/dL) 207 H Calcium AST ALT Albumin Urine Protein Urine Blood Urine Mucus U Benzodiazepines Scrn Assessment and Plan Plan: Assessment Trilobar pneumonia with sepsis Acute hypoxic respiratory failure Hypotension Hyponatremia Elevated liver enzymes Alcoholism with alcohol withdrawal Acute exacerbation of chronic obstructive pulmonary disease Mental status changes Plan Medications have been reviewed and will be continued as ordered. The patient will remain on mechanical ventilation until appropriate to wean. Patient currently on Nimbex for being a synchronous with the vent. Patient also requiring Levophed for hypotension. Budesonide and DuoNeb added. Patient currently on Zosyn and Levaquin for antibiotic coverage. Continue with steroids. Neurology on consult. We will continue to monitor labs/results and adjust treatment as necessary. I performed an examination of the patient and discussed their management with the nurse practitioner. I have reviewed the nurse practitioner's note and agree with the documented findings and plan of care.
[2016-05-26] MEDS ORDERED: NALOXONE 0.4 MG/ML 1 ML VIAL IV PRN (15:04)
--- NOTE | 2016-05-26 15:16 | P.PN ---
Subjective 51-year-old being seen in the ICU currently vented sedated. Patient has had multiple readmissions for alcoholism and alcohol withdrawal. This admission the temp was 101 patient was started on a broad-spectrum antibiotic. Pulmonary consultation has been requested. Patient did have an elevated d-dimer however the computed tomography scan did show pneumonia but a pulmonary emboli cannot be excluded. Patient initially was admitted from the emergency room to the medical floor. On the medical floor patient became increasingly more confused experiencing acute hypoxic respiratory distress transferred to the ICU subsequently needed to be intubated and sedated. Patient's last admission was on the may that time patient was treated for acute alcohol intoxication. Patient did not want to go to [facility] for alcohol rehab. He stated he was going to quit on his own Objective - Vital Signs Vital signs: Vital Signs Temp 98.2 F 05/26/16 08:00 Pulse 77 05/26/16 14:24 Resp 15 05/26/16 09:00 BP 91/65 05/26/16 09:15 Pulse Ox 92 L 05/26/16 09:00 Intake & Output 05/25/16 05/26/16 05/26/16 18:59 06:59 18:59 Intake Total 500 1253.175 315.181 Output Total 2475 430 Balance 500 -1221.825 -114.819 Weight 83.915 kg Intake: IV 912.5 300 ACETAMINOPHEN IV (For NPO 100 ) 1,000 mg In Empty Bag 1 bag @ 400 mls/hr IVPB Q6HR PRN Rx#:[id number] Magnesium Sulfate-D5w Pmx 200 1 gm In Dextrose/Water 1 100ml.bag @ 100 mls/hr IVPB Q1H YOHANNES Rx#: [id number] Piperacillin-Tazobactam 3 12.5 .375 gm In Dextrose/Water 1 50ml.bag @ 12.5 mls/hr IVPB ONCE STA Rx#: [id number] Sodium Chloride 0.9% 1, 600 300 000 ml @ 100 mls/hr IV . Q10H YOHANNES Rx#:[id number] Intake, IV Titration 340.675 15.181 Amount Cisatracurium 200 mg In 9.312 Sodium Chloride 0.9% 180 ml @ 3 MCG/KG/MIN 15.1 mls/hr IV .[id number] YOHANNES Rx #:[id number] Norepinephrin 4 mg-0.9% 250.000 Ns Pmx 4 mg In 250 ml @ Titrate IV .Q0M YOHANNES Rx#: [id number] Piperacillin-Tazobactam 3 50 .375 gm In Dextrose/Water 1 50ml.bag @ 12.5 mls/hr IVPB Q8H YOHANNES Rx#: [id number] Propofol 1,000 mg In 40.675 5.869 Empty Bag 1 bag @ Titrate IV .Q0M YOHANNES Rx#: [id number] Oral 500 Output: Urine 2475 430 Other: Voiding Method Indwelling Catheter # Voids 2 # Bowel Movements 1 - Exam Physical exam 51-year-old male orally intubated sedated on propofol. Vent settings FiO2 100% tidal volume 500 PEEP of 5 Lungs anterior diminished at the bases otherwise adequate air movement Heart S1-S2 audible and regular no murmur Abdomen flat nontender oral gastric tube in place connected to suction a few hypoactive bowel tones indwelling Magaña catheter in place Extremities Venodyne's on to the bilateral lower extremities - Labs CBC & Chem 7: 05/26/16 06:49 05/26/16 06:49 Labs: Abnormal Lab Results - Last 24 Hours (Table) 05/26/16 05/26/16 05/26/16 Range/Units 00:31 00:48 01:00 WBC (3.8-10.6) k/uL RBC (4.30-5.90) m/uL MCV (80.0-100.0) fL Plt Count (150-450) k/uL Lymphocytes # (1.0-4.8) k/uL ABG pH 7.46 H (7.35-7.45) ABG pCO2 29 L (35-45) mmHg ABG pO2 78 L (83-108) mmHg ABG HCO3 20 L (21-25) mmol/L Sodium (137-145) mmol/L Carbon Dioxide (22-30) mmol/L Glucose (74-99) mg/dL POC Glucose (mg/dL) 109 H (75-99) mg/dL Calcium (8.4-10.2) mg/dL AST (17-59) U/L ALT (21-72) U/L Albumin (3.5-5.0) g/dL Urine Protein 1+ H (Negative) Urine Blood Moderate H (Negative) Urine Mucus Rare H (None) /hpf U Benzodiazepines Scrn (NotDetected) 05/26/16 05/26/16 05/26/16 Range/Units 01:00 01:11 01:11 WBC 3.7 L (3.8-10.6) k/uL RBC 4.17 L (4.30-5.90) m/uL MCV 103.3 H D (80.0-100.0) fL Plt Count 69 L (150-450) k/uL Lymphocytes # (1.0-4.8) k/uL ABG pH (7.35-7.45) ABG pCO2 (35-45) mmHg ABG pO2 (83-108) mmHg ABG HCO3 (21-25) mmol/L Sodium 135 L (137-145) mmol/L Carbon Dioxide 21 L (22-30) mmol/L Glucose 106 H (74-99) mg/dL POC Glucose (mg/dL) (75-99) mg/dL Calcium 8.3 L (8.4-10.2) mg/dL AST 288 H (17-59) U/L ALT 74 H (21-72) U/L Albumin 3.4 L (3.5-5.0) g/dL Urine Protein (Negative) Urine Blood (Negative) Urine Mucus (None) /hpf U Benzodiazepines Scrn Detected H (NotDetected) 05/26/16 05/26/16 05/26/16 Range/Units 03:10 06:49 06:49 WBC (3.8-10.6) k/uL RBC (4.30-5.90) m/uL MCV 103.8 H (80.0-100.0) fL Plt Count 90 L (150-450) k/uL Lymphocytes # 0.4 L (1.0-4.8) k/uL ABG pH 7.34 L (7.35-7.45) ABG pCO2 (35-45) mmHg ABG pO2 81 L (83-108) mmHg ABG HCO3 20 L (21-25) mmol/L Sodium (137-145) mmol/L Carbon Dioxide 20 L (22-30) mmol/L Glucose 163 H (74-99) mg/dL POC Glucose (mg/dL) (75-99) mg/dL Calcium 7.9 L (8.4-10.2) mg/dL AST 295 H (17-59) U/L ALT 76 H (21-72) U/L Albumin 3.3 L (3.5-5.0) g/dL Urine Protein (Negative) Urine Blood (Negative) Urine Mucus (None) /hpf U Benzodiazepines Scrn (NotDetected) 05/26/16 05/26/16 Range/Units 07:39 12:15 WBC (3.8-10.6) k/uL RBC (4.30-5.90) m/uL MCV (80.0-100.0) fL Plt Count (150-450) k/uL Lymphocytes # (1.0-4.8) k/uL ABG pH (7.35-7.45) ABG pCO2 (35-45) mmHg ABG pO2 (83-108) mmHg ABG HCO3 (21-25) mmol/L Sodium (137-145) mmol/L Carbon Dioxide (22-30) mmol/L Glucose (74-99) mg/dL POC Glucose (mg/dL) 207 H 199 H (75-99) mg/dL Calcium (8.4-10.2) mg/dL AST (17-59) U/L ALT (21-72) U/L Albumin (3.5-5.0) g/dL Urine Protein (Negative) Urine Blood (Negative) Urine Mucus (None) /hpf U Benzodiazepines Scrn (NotDetected) Microbiology - Last 24 Hours (Table) 05/26/16 01:00 Urine Culture - Preliminary Urine,Catheterized 05/26/16 02:40 Sputum Culture - Preliminary Sputum Assessment and Plan Plan: Impression Present on admission fever suspect due to multilobular pneumonia Chronic alcoholism Current every day smoker Anxiety depressive disorder Multiple admissions for acute alcohol intoxication with impending DTs Acute exacerbation of COPD Present on admission hypernatremia Acute hypoxic respiratory failure necessitating intubation with vent support Elevated liver enzymes Plan Continue ICU management per [facility] service Continue with pulmonary management as ordered Use of Ativan for CIWA for impending DTs Resume home meds as appropriate DVT and GI prophylaxis IV antibiotics as ordered Repeat labs in the morning The above dictated assessment and findings were discussed with dr guan . Impression and the plan of care have been dictated as directed. Traci Reo nurse practitioner acting as a scribe for dr guan
[2016-05-26 17:16] LABS: Glucose,Whole Blood 164 mg/dL (75-99)
[2016-05-26] MEDS: PROPOFOL 500 MG in EMPTY BAG 1 BAG IV SCH ×2 (18:16→20:50)
[2016-05-26] MEDS: BUDESONIDE 1 MG/2 ML NEBU INHALATION SCH (19:37)
[2016-05-26] MEDS: MONTELUKAST 10 MG TAB PO SCH (20:36)
[2016-05-26 20:53] LABS: Glucose,Whole Blood 150 mg/dL (75-99)
[2016-05-26] MEDS: TETRAHYDROZOLINE 0.05% OPHTH DROPS 15 ML BTL BOTH EYES PRN (23:28)
[2016-05-27 01:00] LABS: Glucose,Whole Blood 141 mg/dL (75-99)
[2016-05-27] MEDS: PROPOFOL 500 MG in EMPTY BAG 1 BAG IV SCH ×9 (01:00→23:39)
[2016-05-27] MEDS: SODIUM CHLORIDE 0.9% 1,000 ML IV SCH ×3 (03:22→23:10)
[2016-05-27 05:44] LABS: ABG Base Excess -1.2 mmol/L; ABG HCO3 25 mmol/L (21-25); ABG PCO2 53 mmHg (35-45); ABG PH 7.29 (7.35-7.45); ABG PO2 84 mmHg (83-108); ABG TCO2 26 mmol/L (19-24)
[2016-05-27 06:09] LABS: Basophils % (A) 0 %; CH 34.6; CHCM 33.4; Eosinophils % (A) 0 %; HCT 45.6 % (39.0-53.0); HDW 3.06; Luc # (Auto) 0.12; Luc % (Auto) 1; Lymphocytes # (A) 0.5 k/uL (1.0-4.8); Lymphocytes % (A) 5 %; MCH 34.2 pg (25.0-35.0); MCHC 32.8 g/dL (31.0-37.0); MCV 104.3 fL (80.0-100.0); Macrocytosis Moderate; Mean Platelet Volume 7.7; Monocytes # (A) 0.2 k/uL (0-1.0); Monocytes % (A) 2 %; Neutrophils # (A) 9.3 k/uL (1.3-7.7); Neutrophils % (A) 91 %; RBC 4.37 m/uL (4.30-5.90); RDW 14.7 % (11.5-15.5); WBC 10.2 k/uL (3.8-10.6); WBC (Perox) 10.26
[2016-05-27 06:20] LABS: Anion Gap 10 mmol/L; Blood Urea Nitrogen 10 mg/dL (9-20); Calcium 7.6 mg/dL (8.4-10.2); Carbon Dioxide 24 mmol/L (22-30); Chloride 109 mmol/L (98-107); Glucose 146 mg/dL (74-99); Magnesium 1.9 mg/dL (1.6-2.3); Non-African American GFR(MDRD) >60 (>60 ml/min/1.73 sqM); Phosphorous 3.5 mg/dL (2.5-4.5); Potassium 3.2 mmol/L (3.5-5.1); Sodium 143 mmol/L (137-145)
[2016-05-27 06:50] LABS: Glucose,Whole Blood 140 mg/dL (75-99)
[2016-05-27] MEDS: INSULIN LISPRO (humaLOG) 300 UNIT/3 ML VIAL SQ SCH ×4 (07:59→23:39)
[2016-05-27] MEDS: PIPERACILLIN-TAZOBACTAM 3.375 GM in DEXTROSE/WATER 1 50ML.BAG IVPB SCH ×3 (08:04→22:13)
[2016-05-27] MEDS: TETRAHYDROZOLINE 0.05% OPHTH DROPS 15 ML BTL BOTH EYES PRN (08:14)
[2016-05-27] MEDS: NOREPINEPHRIN 4 MG-0.9% NS PMX 4 MG/250 ML ML IV SCH ×2 (08:52→19:29)
[2016-05-27] MEDS: CISATRACURIUM 200 MG in SODIUM CHLORIDE 0.9% 180 ML IV SCH ×2 (08:53→08:54)
--- NOTE | 2016-05-27 08:54 | XR ---
EXAMINATION TYPE: XR chest 1V portable DATE OF EXAM: 05/27/2016 6:40 AM COMPARISON: NONE INDICATION: Difficulty breathing previous abnormal chest TECHNIQUE: Single frontal view of the chest is obtained. FINDINGS: The heart size is normal. The pulmonary vasculature is normal. There is consolidation to the right midlung. Correlate for superior segment right lower lobe pneumoni a. Small right pleural effusion may be present Endotracheal tube is present with the tip above the jesús. Nasogastric tube transverses the thorax. IMPRESSION: 1. Right midlung consolidation with small right pleural effusion. Follow-up is recommended.
[2016-05-27] MEDS: POTASSIUM CHLORIDE ORAL LIQUID 40 MEQ/30 ML CUP NG-TUBE SCH ×2 (08:55→10:16)
[2016-05-27] MEDS: MAGNESIUM SULFATE-D5W PMX 1 GM in DEXTROSE/WATER 1 100ML.BAG IVPB SCH ×2 (08:55→10:16)
[2016-05-27] MEDS: FUROSEMIDE 10 MG/ML 4 ML VIAL IV SCH ×3 (08:56→23:38)
[2016-05-27] MEDS: HEPARIN SODIUM,PORCINE 5,000 UNIT/ML 1 ML VIAL SQ SCH ×3 (08:58→23:38)
[2016-05-27] MEDS: methylPREDNISolone SOD SUCCI 125 MG/2 ML VIAL IV SCH ×3 (08:58→23:38)
[2016-05-27] MEDS: ARIPiprazole 2 MG TAB PO SCH (09:03)
[2016-05-27] MEDS: GABAPENTIN 100 MG CAP PO SCH ×2 (09:03→21:00)
[2016-05-27] MEDS: CHLORHEXIDINE GLUCONATE 15 ML CUP MUCOUS MEM SCH ×2 (09:03→21:00)
[2016-05-27] MEDS: MULTIVITAMINS, THERA 1 EACH TAB PO SCH (09:04)
[2016-05-27] MEDS: PANTOPRAZOLE 40 MG/10 ML VIAL IV SCH (09:04)
[2016-05-27] MEDS: levETIRAcetam 500 MG TAB PO SCH ×2 (09:04→21:00)
[2016-05-27] MEDS: PARoxetine 20 MG TAB PO SCH (09:04)
--- NOTE | 2016-05-27 09:28 | CONS ---
DATE OF CONSULTATION: 05/26/2016 CHIEF COMPLAINT: History of seizures. HISTORY OF PRESENT ILLNESS: Mr. Manriquez is a 51-year-old male who is being evaluated today on 05/26/2016 by the Neurology Service per the request of Dr. Ashwin Childs for history of seizures. The patient was brought into [facility] emergency room with complaints of shortness of breath. He has history of chronic obstructive pulmonary disease. His d-dimer was elevated and a CT scan of the chest was done, which showed evidence of multilobe pneumonia. He was also febrile on admission. The patient's respiratory status worsened and he had to be intubated and sedated. The patient does have history of seizure disorder. It is unclear if he epilepsy or recurrent alcohol withdrawal seizures. In reviewing his home medications, he is on Keppra 1000 mg b.i.d. He is also on low-dose Lyrica and Neurontin. According to the nursing staff, the patient has not had any seizure-like activity since his admission. At the time of my evaluation, the patient is intubated and sedated and continues to be in the intensive care unit. He has been started on IV antibiotics. A CT scan of the brain was done which showed old left side subdural hygromas, which was unchanged when compared to his 05/10/2016 study. Generalized atrophy was also noticed. His comprehensive metabolic profile showed hepatic insufficiency with an AST of 295 and ALT of 76. He also had mild hypocalcemia at 7.9. His CBC showed thrombocytopenia at 90,000. His urinalysis showed moderate blood and his urine drug screen was positive for benzodiazepine. PAST MEDICAL HISTORY: Chronic obstructive pulmonary disease, history of alcohol abuse, seizure disorder, arthritis, depression. SOCIAL HISTORY: The patient is a current every day smoker. He drinks alcohol daily. There is no history of any IV drug use. FAMILY HISTORY: Positive for cancer and dementia. HOME MEDICATIONS: Reviewed in the chart. ALLERGIES: No known drug allergies. REVIEW OF SYSTEMS: Unable to obtain as the patient is intubated and sedated. PHYSICAL EXAM: Vital signs show a temperature of 97.0, pulse 80, respirations 15, blood pressure 90/65. GENERAL APPEARANCE: The patient is a well-developed male who is intubated and sedated. HEENT: Normocephalic, atraumatic, no facial asymmetry is seen. Endotracheal tube is intact. Neck is supple with no masses felt. CARDIOVASCULAR: Regular rate and rhythm. ABDOMEN: Nontender, nondistended. Extremities showed trace edema with no clubbing seen. NEUROLOGICAL EXAM: The patient is intubated and sedated. No obvious facial asymmetry is seen. Plantar reflex showed silent toes bilaterally. No tremors or seizure-like activity is seen. Pupils are equally round and fixed. IMPRESSION: 1. Seizure disorder. 2. Chronic subdural hygromas. 3. Respiratory failure secondary to pneumonia. 4. Hepatic insufficiency. 5. History of alcohol abuse. 6. Chronic obstructive pulmonary disease. 7. Nicotine dependence. RECOMMENDATION: From a neurology standpoint, the patient has not had any seizure-like activity since his admission. Again, it is unclear if the patient has epilepsy or recurrent alcohol withdrawal seizures. For now, I will keep him on his home dose of Keppra 1000 mg b.i.d. An EEG has been ordered. The patient will be re-evaluated further from a neurology standpoint once he is more awake. His CT scan of the brain does show subdural hygromas, which appeared to be chronic. Continue supportive care. I will continue to follow with you. Further recommendations to follow. Thank you, Dr. Childs, for allowing me to participate in the care of your patient. If you have any questions, please feel free to contact me.
[2016-05-27] MEDS: BUDESONIDE 1 MG/2 ML NEBU INHALATION SCH ×2 (10:16→19:51)
[2016-05-27] MEDS: IPRATROPIUM-ALBUTEROL 3 ML NEB INHALATION SCH ×3 (10:16→19:51)
[2016-05-27] MEDS: HYDROmorphone 1 MG/ML 1 ML SYRINGE IVP PRN (10:18)
[2016-05-27] MEDS: LEVOFLOXACIN 750MG-D5W PMX 750 MG in DEXTROSE/WATER 1 150ML.BAG IVPB SCH (10:25)
[2016-05-27] MEDS: PREGABALIN 75 MG CAP PO SCH ×2 (10:25→21:02)
--- NOTE | 2016-05-27 10:36 | XR ---
EXAMINATION TYPE: XR chest 1V portable DATE OF EXAM: 05/27/2016 10:15 AM COMPARISON: 05/27/2016 earlier exam INDICATION: Difficulty breathing abnormal ET tube placement TECHNIQUE: Single frontal view of the chest is obtained. FINDINGS: The heart size is normal. The pulmonary vasculature is normal. There is a consolidation within the right midlung. Mild infiltrate is at the bilateral lung bases whi ch appears to be increasing. Right central venous catheter is present with tip in superior vena cava region. Nasogastric tube bose sverses the thorax with tip in the proximal left upper quadrant abdomen. An endotracheal tube is pres ent the tip currently 9.8 cm above the jesús. This is advanced from the prior study. IMPRESSION: 1. Lines and catheters discussed above. Endotracheal tube is been advanced. 2. The nasogastric tube may be with the tip within the proximal left upper quadrant of the abdomen an d could be advanced as well. 3. Consolidation right midlung. Increasing bibasilar infiltrates are also present.
--- NOTE | 2016-05-27 10:38 | XR ---
EXAMINATION TYPE: XR chest 1V portable DATE OF EXAM: 05/27/2016 10:15 AM COMPARISON: NONE INDICATION: Difficulty breathing Placement TECHNIQUE: Single frontal view of the chest is obtained. FINDINGS: The heart size is normal. The pulmonary vasculature is normal. There is a consolidation in the right midlung. Mild subsegmental atelectasis likely at the bilateral lung bases. There is a nasogastric tube present with tip within the proximal left upper quadrant of the abdomen a nd can be advanced. A right central venous catheter is present with the tip in the superior vena cava region. Tip of the endotracheal tube is at the level of C7 above the thoracic inlet. IMPRESSION: 1. Right midlung consolidation. 2. Mild bibasilar subsegmental atelectasis. 3. Nasogastric tube with tip in the proximal left upper quadrant. This could be advanced. 4. Endotracheal tube tip at the inferior level of C7 and can be advanced.
--- NOTE | 2016-05-27 10:52 | P.PN ---
Subjective This is a 51-year-old male who is being evaluated and examined today in the intensive care unit. Patient originally came into the emergency room with increased shortness of breath and some confusion. This patient has known to have multiple readmissions with alcoholism and alcohol withdrawals. Patient was noted to have a fever of 101 on admission he was started on broad-spectrum antibiotics, updrafts, and steroids. Patient's lactic acid level was 2.7, Patient was also noted to have an elevated d-dimer however CTA was performed and showed a trilobar pneumonia, congestive heart failure, pulmonary embolism could not be excluded. Patient was originally admitted to medical surgical floor and had some increase in confusion and some respiratory distress therefore he was transferred up to the ICU. Subsequently the patient was intubated and has propofol for sedation. Upon examination the patient is synchronous with mechanical ventilation, patient on nimbex. Ventilator settings on assist mode respiratory rate of 16 volume 500 FiO2 80% and PEEP of 5. T The patient is requiring Levophed for hypotension. The patient did undergo a central line placement as well as then arterial line please see procedure notes. Objective - Vital Signs Vital signs: Vital Signs Temp 98 F 05/27/16 00:00 Pulse 100 05/27/16 10:21 Resp 16 05/27/16 07:00 BP 107/67 05/27/16 07:00 Pulse Ox 97 05/27/16 07:00 Intake & Output 05/26/16 05/27/16 05/27/16 18:59 06:59 18:59 Intake Total 2342.938 0547.593 350 Output Total 1600 2120 100 Balance -134.819 -492.407 250 Weight 84 kg Intake: IV 1200 1250 100 Piperacillin-Tazobactam 3 50 .375 gm In Dextrose/Water 1 50ml.bag @ 12.5 mls/hr IVPB ONCE STA Rx#: [id number] Sodium Chloride 0.9% 1, 1200 1200 100 000 ml @ 100 mls/hr IV . Q10H [facility] Rx#:[id number] Intake, IV Titration 265.181 377.593 250 Amount Cisatracurium 200 mg In 9.312 190.688 Sodium Chloride 0.9% 180 ml @ 3 MCG/KG/MIN 15.1 mls/hr IV .[id number] [facility] Rx #:[id number] Norepinephrin 4 mg-0.9% 250 250 Ns Pmx 4 mg In 250 ml @ Titrate IV .Q0M [facility] Rx#: [id number] Propofol 1,000 mg In 5.869 Empty Bag 1 bag @ Titrate IV .Q0M [facility] Rx#: [id number] Propofol 500 mg In Empty 186.905 Bag 1 bag @ Titrate IV . Q0M [facility] Rx#:[id number] Output: Urine 1600 2120 100 Other: Voiding Method Indwelling Catheter Indwelling Catheter # Bowel Movements 0 - Exam GENERAL EXAM: On mechanical ventilation with propofol for sedation HEAD: Normocephalic. EYES: Normal reaction of pupils, equal size. NOSE: Clear with pink turbinates. THROAT: No erythema or exudates. NECK: No masses, no JVD. CHEST: No chest wall deformity. LUNGS: On mechanical ventilation, has scattered rhonchi and wheezes throughout. CVS: S1 and S2 normal with no audible mumurs, regular rhythm. ABDOMEN: No hepatosplenomegaly, normal bowel sounds, no guarding or rigidity. EXTREMITIES: No edema noted, pedal pulses palpable. SKIN: No rashes CENTRAL NERVOUS SYSTEM: Currently on sedation - Labs CBC & Chem 7: 05/27/16 05:46 05/27/16 05:46 Labs: Abnormal Lab Results - Last 24 Hours (Table) 05/26/16 05/26/16 05/26/16 Range/Units 12:15 17:13 20:51 MCV (80.0-100.0) fL Plt Count (150-450) k/uL Neutrophils # (1.3-7.7) k/uL Lymphocytes # (1.0-4.8) k/uL ABG pH (7.35-7.45) ABG pCO2 (35-45) mmHg ABG Total CO2 (19-24) mmol/L Potassium (3.5-5.1) mmol/L Chloride (98-107) mmol/L Creatinine (0.66-1.25) mg/dL Glucose (74-99) mg/dL POC Glucose (mg/dL) 199 H 164 H 150 H (75-99) mg/dL Calcium (8.4-10.2) mg/dL 05/27/16 05/27/16 05/27/16 Range/Units 00:59 05:27 05:46 MCV 104.3 H (80.0-100.0) fL Plt Count 76 L (150-450) k/uL Neutrophils # 9.3 H (1.3-7.7) k/uL Lymphocytes # 0.5 L (1.0-4.8) k/uL ABG pH 7.29 L (7.35-7.45) ABG pCO2 53 H (35-45) mmHg ABG Total CO2 26 H (19-24) mmol/L Potassium (3.5-5.1) mmol/L Chloride (98-107) mmol/L Creatinine (0.66-1.25) mg/dL Glucose (74-99) mg/dL POC Glucose (mg/dL) 141 H (75-99) mg/dL Calcium (8.4-10.2) mg/dL 05/27/16 05/27/16 Range/Units 05:46 06:48 MCV (80.0-100.0) fL Plt Count (150-450) k/uL Neutrophils # (1.3-7.7) k/uL Lymphocytes # (1.0-4.8) k/uL ABG pH (7.35-7.45) ABG pCO2 (35-45) mmHg ABG Total CO2 (19-24) mmol/L Potassium 3.2 L (3.5-5.1) mmol/L Chloride 109 H (98-107) mmol/L Creatinine 0.60 L (0.66-1.25) mg/dL Glucose 146 H (74-99) mg/dL POC Glucose (mg/dL) 140 H (75-99) mg/dL Calcium 7.6 L (8.4-10.2) mg/dL Microbiology - Last 24 Hours (Table) 05/26/16 01:11 Blood Culture - Preliminary Blood No Growth after 24 hours 05/26/16 02:40 Gram Stain - Preliminary Sputum Sputum Culture - Preliminary 05/26/16 01:00 Urine Culture - Preliminary Urine,Catheterized Assessment and Plan Plan: Assessment Trilobar pneumonia with sepsis Acute hypoxic respiratory failure Hypotension Hyponatremia Elevated liver enzymes Alcoholism with alcohol withdrawal Acute exacerbation of chronic obstructive pulmonary disease Mental status changes Plan Medications have been reviewed and will be continued as ordered. The patient will remain on mechanical ventilation until appropriate to wean. Patient currently on Nimbex for being a synchronous with the vent. Patient also requiring Levophed for hypotension. Continue on Budesonide and DuoNeb added. Patient currently on Zosyn and Levaquin for antibiotic coverage. Continue with steroids. Neurology on consult. We will continue to monitor labs/results and adjust treatment as necessary. I performed an examination of the patient and discussed their management with the nurse practitioner. I have reviewed the nurse practitioner's note and agree with the documented findings and plan of care.
--- NOTE | 2016-05-27 11:47 | CDI ---
In responding to this query, please exercise your independent professional judgment. The [facility] Coding Staff and Clinical Documentation Specialists appreciate your assistance in clarifying documentation, maintaining compliance with coding guidelines, accurately documenting patients condition and capturing severity of illness. The fact that a question is asked does not imply that any particular answer is desired or expected. Communication forms are a method of clarifying documentation and are not made part of the Legal Health Record. Thank you in advance for your clarification. Last Revision, December 2014 Betzy Bonilla [address] [facility] [place] [address] Documentation Clarification Form Date: 05/27/2016 11:28:00 AM From: Erin Tovar Admit Date: 05/25/2016 11:27:00 AM Patient Name: Alvarado Manriquez Visit Number: [id number] Dr. Ashwin Childs 'Sepsis' is documented by Pulmonary in their notes. History/Risk Factors: Pneumonia Chronic alcoholism COPD Clinical Indicators: WBC 3.6 Lactic acid: 2.7 Vitals signs on admission: temp 101.2, hr 52, rr 24, bp 90/62, sats 94% on room air Breathing became labored - transferred to ICU and placed on mechanical ventilation Patient became confused Blood pressure dropped to 56/47 - placed on IV Levophed Treatment: Antibiotics: IV Levaquin, IV Zosyn IV Levophed IV fluids In your professional opinion, can you please clarify if these findings signify one of the following conditions, whether the condition is POA, and cause, if known? Sepsis Severe Sepsis Septic Shock Unable to determine Other, please specify Please document in your progress notes and discharge summary in order to capture severity of illness and risk of mortality. Include clinical findings that support your diagnosis. FYI: Press F11 to launch patient chart. Place X here if this finding has no clinical significance, is not applicable or if you are not able to provide any additional documentation. BRYNN
--- NOTE | 2016-05-27 12:06 | CDI ---
In responding to this query, please exercise your independent professional judgment. The [facility] Coding Staff and Clinical Documentation Specialists appreciate your assistance in clarifying documentation, maintaining compliance with coding guidelines, accurately documenting patients condition and capturing severity of illness. The fact that a question is asked does not imply that any particular answer is desired or expected. Communication forms are a method of clarifying documentation and are not made part of the Legal Health Record. Thank you in advance for your clarification. Last Revision, April 2015 Betzy Bonilla [address] [facility] [place] [address] Documentation Clarification Form Date: 05/27/2016 11:47:00 AM From: Erin Tovar Admit Date: 05/25/2016 11:27:00 AM Patient Name: Alvarado Manriquez Visit Number: [id number] Dr. Ashwin Childs On 05/26 you documented 'on the medical floor patient became increasingly more confused experiencing acute hypoxic respiratory distress transferred to the ICU subsequently needed to be intubated and sedated'. Patient history/risk factors: Pneumonia COPD Exacerbation Chronic Alcoholism Hyponatremia per Pulmonary and Neurology Acute Hypoxic Respiratory Failure Clinical Indicators: Labs: wbc 3.6, rbc 3.94, platelets 85, ddimer 1.91, na 126, cl 91, gluc 109 , lactic acid 2.7, ast 294, alt 76 Vitals on 05/26 @0210: hr 134, rr 48, bp 150/59, sats 81% X Ray: pneumonia CT chest: pneumonia CT brain: left subdural hygroma, chronic subdural hematoma could be considered Treatment: ICU monitoring Mechanical Ventilation IV antibiotics: Levaquin, Zosyn IV Magnesium IV fluids In your professional opinion, please clarify the etiology of the altered mental status, if known. Encephalopathy (specify Type and Underlying Medical Illness) Other condition (please specify) Unable to determine Please document in your progress notes and discharge summary in order to capture severity of illness and risk of mortality. Include clinical findings that support your diagnosis. FYI: Press F11 to launch patient chart. Place X here if this finding has no clinical significance, is not applicable or if you are not able to provide any additional documentation. KAMALAD
--- NOTE | 2016-05-27 12:12 | CDI ---
In responding to this query, please exercise your independent professional judgment. The [facility] Coding Staff and Clinical Documentation Specialists appreciate your assistance in clarifying documentation, maintaining compliance with coding guidelines, accurately documenting patients condition and capturing severity of illness. The fact that a question is asked does not imply that any particular answer is desired or expected. Communication forms are a method of clarifying documentation and are not made part of the Legal Health Record. Thank you in advance for your clarification. Last Revision, December 2014 Betzyhilario Bonlila [address] [facility] [place] [address] Documentation Clarification Form Date: 05/27/2016 12:06:00 PM From: Erin Tovar Admit Date: 05/25/2016 11:27:00 AM Patient Name: Alvarado Manriquez Visit Number: [id number] Dr. Ashwin Childs Conflicting documentation has been found in the medical record. On 05/26 you documented 'Hypernatremia'. Neurology and Pulmonary are both documenting 'Hyponatremia'. History/Risk Factors: Chronic Alcoholism Pneumonia COPD Clinical Indicators: Labs on admission: na 126 Treatment: IV fluids In your opinion what is the most clinically appropriate diagnosis for this patient? Hyponatremia Hypernatremia OTHER explanation of clinical findings Unable to determine (no explanation for clinical findings) Please clarify and document in your progress notes and discharge summary in order to capture severity of illness and risk of mortality. Include clinical findings that support your diagnosis. FYI: Press F11 to launch patient chart. Place X here if this finding has no clinical significance, is not applicable or if you are not able to provide any additional documentation. BRYNN
[2016-05-27 12:30] LABS: Glucose,Whole Blood 194 mg/dL (75-99)
[2016-05-27] MEDS ORDERED: POTASSIUM CHLORIDE ORAL LIQUID 40 MEQ/30 ML CUP PO ONE ×2 (13:39→19:00)
--- NOTE | 2016-05-27 14:29 | P.PN ---
Subjective 51-year-old being seen in the intensive care unit this morning. Patient is vented sedated family at bedside. Vent settings FiO2 at 80 PEEP of 5 and tidal volume 500. Patient is sedated with propofol. Is being followed by pulmonology. Being treated for episode of acute hypoxic respiratory failure necessitating intubation with vent support likely due to trilobar pneumonia. Patient had a CAT scan which pulmonary emboli cannot be excluded. Patient originally was admitted to the medical surgical floor from the emergency room was noted to have increased confusion hypoxic respiratory distress necessitating the transfer to the intensive care unit patient subsequently was intubated Objective - Vital Signs Vital signs: Vital Signs Temp 98.1 F 05/27/16 12:00 Pulse 72 05/27/16 12:00 Resp 16 05/27/16 12:00 BP 129/85 05/27/16 10:00 Pulse Ox 93 L 05/27/16 12:00 Intake & Output 05/26/16 05/27/16 05/27/16 18:59 06:59 18:59 Intake Total 6236.582 6661.593 1177.540 Output Total 1600 2120 700 Balance -134.819 -492.407 477.540 Weight 84 kg Intake: IV 1200 1250 609 0.9 Pressure Bag 9 Piperacillin-Tazobactam 3 50 .375 gm In Dextrose/Water 1 50ml.bag @ 12.5 mls/hr IVPB ONCE STA Rx#: [id number] Sodium Chloride 0.9% 1, 1200 1200 600 000 ml @ 100 mls/hr IV . Q10H [facility] Rx#:[id number] Intake, IV Titration 265.181 377.593 568.540 Amount Cisatracurium 200 mg In 9.312 190.688 22.586 Sodium Chloride 0.9% 180 ml @ 3 MCG/KG/MIN 15.1 mls/hr IV .[id number] [facility] Rx #:[id number] Magnesium Sulfate-D5w Pmx 200 1 gm In Dextrose/Water 1 100ml.bag @ 100 mls/hr IVPB Q1H [facility] Rx#: [id number] Norepinephrin 4 mg-0.9% 250 250 Ns Pmx 4 mg In 250 ml @ Titrate IV .Q0M [facility] Rx#: [id number] Propofol 1,000 mg In 5.869 Empty Bag 1 bag @ Titrate IV .Q0M [facility] Rx#: [id number] Propofol 500 mg In Empty 186.905 95.954 Bag 1 bag @ Titrate IV . Q0M [facility] Rx#:[id number] Output: Urine 1600 2120 700 Other: Voiding Method Indwelling Catheter Indwelling Catheter # Bowel Movements 0 ABP, PAP, CO, CI - Last Documented Arterial Blood Pressure 110/63 - Exam Physical exam 51-year-old male orally intubated sedated on propofol. Vent settings FiO2 100% tidal volume 500 PEEP of 5 Lungs anterior diminished at the bases otherwise adequate air movement no wheezing noted Heart S1-S2 audible and regular no murmur monitor sinus Abdomen flat nontender oral gastric tube in place connected to suction a few hypoactive bowel tones indwelling Magaña catheter in place Extremities Venodyne's on to the bilateral lower extremities - Labs CBC & Chem 7: 05/27/16 05:46 05/27/16 12:12 Labs: Abnormal Lab Results - Last 24 Hours (Table) 05/26/16 05/26/16 05/27/16 Range/Units 17:13 20:51 00:59 MCV (80.0-100.0) fL Plt Count (150-450) k/uL Neutrophils # (1.3-7.7) k/uL Lymphocytes # (1.0-4.8) k/uL ABG pH (7.35-7.45) ABG pCO2 (35-45) mmHg ABG Total CO2 (19-24) mmol/L Potassium (3.5-5.1) mmol/L Chloride (98-107) mmol/L Creatinine (0.66-1.25) mg/dL Glucose (74-99) mg/dL POC Glucose (mg/dL) 164 H 150 H 141 H (75-99) mg/dL Calcium (8.4-10.2) mg/dL 05/27/16 05/27/16 05/27/16 Range/Units 05:27 05:46 05:46 MCV 104.3 H (80.0-100.0) fL Plt Count 76 L (150-450) k/uL Neutrophils # 9.3 H (1.3-7.7) k/uL Lymphocytes # 0.5 L (1.0-4.8) k/uL ABG pH 7.29 L (7.35-7.45) ABG pCO2 53 H (35-45) mmHg ABG Total CO2 26 H (19-24) mmol/L Potassium 3.2 L (3.5-5.1) mmol/L Chloride 109 H (98-107) mmol/L Creatinine 0.60 L (0.66-1.25) mg/dL Glucose 146 H (74-99) mg/dL POC Glucose (mg/dL) (75-99) mg/dL Calcium 7.6 L (8.4-10.2) mg/dL 05/27/16 05/27/16 Range/Units 06:48 12:13 MCV (80.0-100.0) fL Plt Count (150-450) k/uL Neutrophils # (1.3-7.7) k/uL Lymphocytes # (1.0-4.8) k/uL ABG pH (7.35-7.45) ABG pCO2 (35-45) mmHg ABG Total CO2 (19-24) mmol/L Potassium (3.5-5.1) mmol/L Chloride (98-107) mmol/L Creatinine (0.66-1.25) mg/dL Glucose (74-99) mg/dL POC Glucose (mg/dL) 140 H 194 H (75-99) mg/dL Calcium (8.4-10.2) mg/dL Microbiology - Last 24 Hours (Table) 05/26/16 01:00 Urine Culture - Final Urine,Catheterized 05/26/16 01:11 Blood Culture - Preliminary Blood No Growth after 24 hours 05/26/16 02:40 Gram Stain - Preliminary Sputum Sputum Culture - Preliminary Assessment and Plan Plan: Impression Present on admission fever elevated lactic acid sepsis with septic shock suspect due to multilobular pneumonia Chronic alcoholism Current every day smoker greater than a 20 year history Anxiety depressive disorder nonspecified Multiple admissions for acute alcohol intoxication with impending DTs Acute exacerbation of COPD Present on admission hyponatremia sodium 126 Acute hypoxic respiratory failure necessitating intubation with vent support Elevated liver enzymes Episode of hypotension systolic blood pressure in the 50s placed on IV levophed necessitating a transfer to the intensive care unit Episode of acute metabolic encephalopathy suspect due to acute hypoxic respiratory distress necessitating transfer to the ICU subsequently intubated and sedated suspect due to sepsis with septic shock due to multilobular pneumonia CT of the brain shows left subdural hygroma suspect chronic subdural hematoma Severe electrolyte abnormality hypokalemia potassium 3.2 on May 27 Hypocalcemia calcium 7.6 Plan Continue ICU management per suspect artist service Continue with pulmonary management as ordered Use of Ativan for CIWA for impending DTs Resume home meds as appropriate DVT and GI prophylaxis IV antibiotics as ordered Repeat labs in the morning The above dictated assessment and findings were discussed with dr guan . Impression and the plan of care have been dictated as directed. Traci Roe nurse practitioner acting as a scribe for dr guan
[2016-05-27] MEDS: LORazepam 2 MG/ML SYRINGE IV PRN (16:03)
[2016-05-27 18:37] LABS: Glucose,Whole Blood 130 mg/dL (75-99)
[2016-05-27] MEDS: HYDROmorphone 2 MG/ML 1 ML SYRINGE IVP PRN (20:00)
[2016-05-27] MEDS: MONTELUKAST 10 MG TAB PO SCH (21:00)
[2016-05-27] MEDS ORDERED: POTASSIUM CHLORIDE 20 MEQ, LIDOCAINE 2% INJ 20 MG in SODIUM CHLORIDE 0.9% 100 ML IVPB ONE (22:00)
--- NOTE | 2016-05-27 22:12 | P.PN ---
Subjective Principal diagnosis: seizure Note is being completed a second time due to electronic charting system failure prior to completion of the note. Patient is a 51-year-old male being followed by neurology for seizures. Patient has a history of COPD. Brought to the emergency room with complaints of shortness of breath. D-dimer was elevated and a CT scan the chest showed evidence of multilobe pneumonia. Patient was febrile on admission. Patient's respiratory status worsened and had to be intubated and sedated. Patient does have a history of seizure disorder although it is unclear if it is epileptic or recurrent due to alcohol withdrawal seizures. Home medications indicate the patient is on Keppra 1000 mg twice a day, low- dose Lyrica and Neurontin at home. Nursing staff reports that he has not had any seizure-like activity since his admission. On contact, the patient is intubated and sedated in the intensive care unit. Patient is on IV antibiotics. 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 Generalized atrophy noted. CMP noted hepatic insufficiency with elevated AST and ALT. Patient also has mild hypocalcemia. CBC noted thrombocytopenia. UA and noted moderate blood and urine drug screen was positive for benzodiazepines. Objective - Vital Signs Vital signs: Vital Signs Temp 98.8 F 05/27/16 20:00 Pulse 95 05/27/16 21:00 Resp 21 05/27/16 21:00 BP 129/85 05/27/16 10:00 Pulse Ox 92 L 05/27/16 21:00 Intake & Output 05/27/16 05/27/16 05/28/16 06:59 18:59 06:59 Intake Total 7864.489 6914.835 358.654 Output Total 2120 1395 455 Balance -492.407 747.835 -96.346 Weight 84 kg Intake: IV 1250 1227 309 0.9 Pressure Bag 27 9 Piperacillin-Tazobactam 3 50 .375 gm In Dextrose/Water 1 50ml.bag @ 12.5 mls/hr IVPB ONCE STA Rx#: [id number] Sodium Chloride 0.9% 1, 1200 1200 300 000 ml @ 100 mls/hr IV . Q10H [facility] Rx#:[id number] Intake, IV Titration 377.593 915.835 49.654 Amount Cisatracurium 200 mg In 190.688 22.586 Sodium Chloride 0.9% 180 ml @ 3 MCG/KG/MIN 15.1 mls/hr IV .[id number] [facility] Rx #:[id number] Magnesium Sulfate-D5w Pmx 200 1 gm In Dextrose/Water 1 100ml.bag @ 100 mls/hr IVPB Q1H [facility] Rx#: [id number] Norepinephrin 4 mg-0.9% 500 Ns Pmx 4 mg In 250 ml @ Titrate IV .Q0M [facility] Rx#: [id number] Propofol 500 mg In Empty 186.905 193.249 49.654 Bag 1 bag @ Titrate IV . Q0M [facility] Rx#:[id number] Output: Urine 2120 1395 455 Other: Voiding Method Indwelling Catheter Indwelling Catheter Indwelling Catheter ABP, PAP, CO, CI - Last Documented Arterial Blood Pressure 112/55 - Exam Constitutional: in the ICU, sedated on ventilator. HEENT: NC/AT, Supple, no masses, no facial asymmetry noted on exam. ET tube is intact. Respiratory: No increased work of breathing Cardiac: Regular rate and Rhythm GI: non tender, non distended Musculoskeletal: Performance Architect strengths are equal bilaterally 5/5, Lower extremity strengths are equal bilaterally at 5/5. Neurological: intubated and sedated. No obvious facial asymmetry seen. Plantar reflex showed silent toes bilaterally. No tremors or seizure-like activity is seen. Pupils equally round and fixed. Integementary: no rash, no erythema Psychiatric: mood and affect appropriate - Constitutional Constitutional Comment(s): all systems not noted previously in HPI or negative. - Labs CBC & Chem 7: 05/27/16 05:46 05/27/16 21:04 Labs: Abnormal Lab Results - Last 24 Hours (Table) 05/27/16 05/27/16 05/27/16 Range/Units 00:59 05:27 05:46 MCV 104.3 H (80.0-100.0) fL Plt Count 76 L (150-450) k/uL Neutrophils # 9.3 H (1.3-7.7) k/uL Lymphocytes # 0.5 L (1.0-4.8) k/uL ABG pH 7.29 L (7.35-7.45) ABG pCO2 53 H (35-45) mmHg ABG Total CO2 26 H (19-24) mmol/L Potassium (3.5-5.1) mmol/L Chloride (98-107) mmol/L Creatinine (0.66-1.25) mg/dL Glucose (74-99) mg/dL POC Glucose (mg/dL) 141 H (75-99) mg/dL Calcium (8.4-10.2) mg/dL 05/27/16 05/27/16 05/27/16 Range/Units 05:46 06:48 12:13 MCV (80.0-100.0) fL Plt Count (150-450) k/uL Neutrophils # (1.3-7.7) k/uL Lymphocytes # (1.0-4.8) k/uL ABG pH (7.35-7.45) ABG pCO2 (35-45) mmHg ABG Total CO2 (19-24) mmol/L Potassium 3.2 L (3.5-5.1) mmol/L Chloride 109 H (98-107) mmol/L Creatinine 0.60 L (0.66-1.25) mg/dL Glucose 146 H (74-99) mg/dL POC Glucose (mg/dL) 140 H 194 H (75-99) mg/dL Calcium 7.6 L (8.4-10.2) mg/dL 05/27/16 Range/Units 18:26 MCV (80.0-100.0) fL Plt Count (150-450) k/uL Neutrophils # (1.3-7.7) k/uL Lymphocytes # (1.0-4.8) k/uL ABG pH (7.35-7.45) ABG pCO2 (35-45) mmHg ABG Total CO2 (19-24) mmol/L Potassium (3.5-5.1) mmol/L Chloride (98-107) mmol/L Creatinine (0.66-1.25) mg/dL Glucose (74-99) mg/dL POC Glucose (mg/dL) 130 H (75-99) mg/dL Calcium (8.4-10.2) mg/dL Microbiology - Last 24 Hours (Table) 05/26/16 01:00 Urine Culture - Final Urine,Catheterized 05/26/16 01:11 Blood Culture - Preliminary Blood No Growth after 24 hours Assessment and Plan (1) COPD (chronic obstructive pulmonary disease) Status: Acute (2) Pneumonia Status: Acute (3) Alcohol dependence Status: Acute (4) Seizures Status: Acute Plan: Patient has not any seizure-like activity since his admission. Etiology of seizures is unclear at this time. Etiology may include epileptic or recurrent alcohol withdrawal seizures. Patient to maintain Keppra 1000 mg twice a day. Continue seizure precautions. Occupational therapy and physical therapy have been consulted. Keppra level ordered, EEG pending. Continue neuro checks every 4 hours and notify neurology with any status changes. Status: Neurology will continue to follow and provide updates as needed or warranted. Feel free to contact our office with any questions or concerns. I discussed the patient's pertinent medical information with Dr. Contreras. He agrees with the plan of care as implemented.
[2016-05-27 23:33] LABS: Glucose,Whole Blood 143 mg/dL (75-99)
[2016-05-28] MEDS: LORazepam 2 MG/ML SYRINGE IV PRN ×5 (01:27→19:51)
[2016-05-28] MEDS: PROPOFOL 500 MG in EMPTY BAG 1 BAG IV SCH ×12 (02:09→22:27)
[2016-05-28] MEDS: HYDROmorphone 2 MG/ML 1 ML SYRINGE IVP PRN ×5 (02:52→21:31)
[2016-05-28] MEDS: IPRATROPIUM-ALBUTEROL 3 ML NEB INHALATION PRN (03:29)
[2016-05-28 04:51] LABS: Basophils % (A) 0 %; CH 34.2; Eosinophils % (A) 0 %; HCT 39.2 % (39.0-53.0); HDW 3.16; HGB 13.5 gm/dL (13.0-17.5); Luc # (Auto) 0.12; Luc % (Auto) 2; Lymphocytes # (A) 0.3 k/uL (1.0-4.8); Lymphocytes % (A) 4 %; MCH 34.8 pg (25.0-35.0); MCHC 34.4 g/dL (31.0-37.0); MCV 101.2 fL (80.0-100.0); Macrocytosis Slight; Mean Platelet Volume 7.8; Monocytes # (A) 0.2 k/uL (0-1.0); Monocytes % (A) 3 %; Neutrophils # (A) 5.9 k/uL (1.3-7.7); Neutrophils % (A) 91 %; RBC 3.87 m/uL (4.30-5.90); RDW 14.7 % (11.5-15.5); WBC 6.5 k/uL (3.8-10.6); WBC (Perox) 6.72
[2016-05-28 05:37] LABS: Anion Gap 9 mmol/L; Blood Urea Nitrogen 15 mg/dL (9-20); Calcium 7.9 mg/dL (8.4-10.2); Carbon Dioxide 27 mmol/L (22-30); Chloride 112 mmol/L (98-107); Glucose 166 mg/dL (74-99); Magnesium 2.2 mg/dL (1.6-2.3); Non-African American GFR(MDRD) >60 (>60 ml/min/1.73 sqM); Phosphorous 2.3 mg/dL (2.5-4.5); Potassium 3.7 mmol/L (3.5-5.1); Sodium 148 mmol/L (137-145)
[2016-05-28 06:04] LABS: ABG Base Excess 1.7 mmol/L; ABG HCO3 26 mmol/L (21-25); ABG PCO2 43 mmHg (35-45); ABG PO2 58 mmHg (83-108); ABG TCO2 27 mmol/L (19-24)
[2016-05-28] MEDS: PIPERACILLIN-TAZOBACTAM 3.375 GM in DEXTROSE/WATER 1 50ML.BAG IVPB SCH ×2 (07:02→14:00)
[2016-05-28] MEDS: NOREPINEPHRIN 4 MG-0.9% NS PMX 4 MG/250 ML ML IV SCH ×2 (07:03→15:51)
[2016-05-28] MEDS: INSULIN LISPRO (humaLOG) 300 UNIT/3 ML VIAL SQ SCH ×3 (07:09→18:26)
[2016-05-28] MEDS ORDERED: SODIUM PHOSPHATE 10 MMOL in SODIUM CHLORIDE 0.9% 250 ML IVPB ONE (07:23)
[2016-05-28] MEDS ORDERED: Potassium Replacement Protocol 1 EACH MISC MISCELLANE PRN (07:23)
[2016-05-28] MEDS: IPRATROPIUM-ALBUTEROL 3 ML NEB INHALATION SCH ×3 (07:38→20:26)
[2016-05-28] MEDS: BUDESONIDE 1 MG/2 ML NEBU INHALATION SCH ×2 (07:38→20:26)
[2016-05-28] MEDS ORDERED: POTASSIUM CHLORIDE ORAL LIQUID 40 MEQ/30 ML CUP NG-TUBE SCH (08:00)
--- NOTE | 2016-05-28 08:00 | XR ---
EXAMINATION TYPE: XR chest 1V portable DATE OF EXAM: 05/28/2016 7:08 AM COMPARISON: NONE HISTORY: 05/27/2016 FINDINGS: Indwelling tubes and catheters are unchanged. Tip of the endotracheal tube to the jesús is 4.1 cm. Persistent moderate-sized airspace consolidation right midlung zone and left lower lobe infiltrate as well. Small right-sided effusion suspected. Stable appearance of the cardio-mediastinal structures at this time. Pleural effusion unchanged. IMPRESSION: 1. Persistent moderate-sized airspace consolidation right midlung zone and left lower lobe infiltrat e as well. Small right-sided effusion suspected.
[2016-05-28] MEDS ORDERED: VANCOMYCIN 1,000 MG in SODIUM CHLORIDE 0.9% 250 ML IVPB STA (08:06)
[2016-05-28] MEDS: HEPARIN SODIUM,PORCINE 5,000 UNIT/ML 1 ML VIAL SQ SCH ×2 (08:12→15:48)
[2016-05-28] MEDS: FUROSEMIDE 10 MG/ML 4 ML VIAL IV SCH (08:12)
[2016-05-28] MEDS: methylPREDNISolone SOD SUCCI 125 MG/2 ML VIAL IV SCH ×2 (08:13→15:48)
[2016-05-28] MEDS ORDERED: IV VANCOMYCIN PER PHARMACY 1 EACH MISC MISCELLANE ONE (08:30)
[2016-05-28 08:38] LABS: Glucose,Whole Blood 145 mg/dL (75-99)
[2016-05-28] MEDS: CHLORHEXIDINE GLUCONATE 15 ML CUP MUCOUS MEM SCH (08:55)
[2016-05-28] MEDS: VANCOMYCIN 1,500 MG in SODIUM CHLORIDE 0.9% 250 ML IVPB SCH ×2 (08:55→16:00)
[2016-05-28] MEDS: PANTOPRAZOLE 40 MG/10 ML VIAL IV SCH (08:56)
[2016-05-28] MEDS: levETIRAcetam 500 MG TAB PO SCH (08:56)
[2016-05-28] MEDS: ARIPiprazole 2 MG TAB PO SCH (08:56)
[2016-05-28] MEDS: GABAPENTIN 100 MG CAP PO SCH (08:56)
[2016-05-28] MEDS: MULTIVITAMINS, THERA 1 EACH TAB PO SCH (08:56)
[2016-05-28] MEDS: PARoxetine 20 MG TAB PO SCH (08:57)
[2016-05-28] MEDS: SODIUM CHLORIDE 0.9% 1,000 ML IV SCH (08:58)
[2016-05-28] MEDS: CISATRACURIUM 200 MG in SODIUM CHLORIDE 0.9% 180 ML IV SCH (08:58)
--- NOTE | 2016-05-28 08:59 | EEG ---
DATE OF SERVICE: 05/27/2016 REASON FOR TESTING: Altered mental status and seizure history. AGE: 51Y CURRENT ANTIEPILEPTIC MEDICATIONS: Keppra. DESCRIPTION OF THE PROCEDURE: This EEG was performed using a 21-channel digital electroencephalograph, following the international 10 - 20 system. DESCRIPTION OF THE RECORDING: From the beginning of the tracing, the background rhythm was mostly consisting of 6 Hz theta frequency in the posterior occipital leads. No obvious asymmetry is seen. Occasional movement artifacts are seen. Photic stimulation was performed with no driving response seen. No pathological waves were elicited. Hyperventilation was not performed. No epileptiform discharges were seen. INTERPRETATION: This EEG is abnormal due to the presence of generalized slowing of the background rhythm, mostly in the theta range. This is consistent with mild to moderate encephalopathy. No epileptiform discharges were seen. The absence of epileptiform discharges does not rule out the diagnosis of epilepsy, therefore, clinical correlation is recommended.
[2016-05-28] MEDS: PREGABALIN 75 MG CAP PO SCH (09:04)
[2016-05-28] MEDS: ACETAMINOPHEN TAB 325 MG TAB PO PRN (09:36)
[2016-05-28] MEDS: LEVOFLOXACIN 750MG-D5W PMX 750 MG in DEXTROSE/WATER 1 150ML.BAG IVPB SCH (10:37)
[2016-05-28] MEDS ORDERED: IV FLUID CONTINUATION 800 ML IV ONE (11:12)
[2016-05-28 12:05] LABS: Glucose,Whole Blood 160 mg/dL (75-99)
--- NOTE | 2016-05-28 13:34 | P.PN ---
Subjective 51-year-old being seen in the intensive care unit of the attending this morning. Patient continues sedated on vent support this been no new events. Family member at the bedside. Patient is scheduled for a bronchoscopy this morning by pulmonary Objective - Vital Signs Vital signs: Vital Signs Temp 99.5 F 05/28/16 12:00 Pulse 114 H 05/28/16 12:00 Resp 25 H 05/28/16 12:00 BP 103/72 05/28/16 12:00 Pulse Ox 93 L 05/28/16 12:00 Intake & Output 05/27/16 05/28/16 05/28/16 18:59 06:59 18:59 Intake Total 2142.835 3293.382 1279.716 Output Total 1395 2655 395 Balance 747.835 -925.396 790.716 Weight 84.6 kg Intake: IV 1227 1236 415 0.9 Pressure Bag 27 36 15 Sodium Chloride 0.9% 1, 1200 1200 300 000 ml @ 100 mls/hr IV . Q10H [facility] Rx#:[id number] Intake, IV Titration 915.835 493.604 770.716 Amount Cisatracurium 200 mg In 22.586 Sodium Chloride 0.9% 180 ml @ 3 MCG/KG/MIN 15.1 mls/hr IV .[id number] [facility] Rx #:[id number] Levofloxacin 750Mg-D5w 50 Pmx 750 mg In Dextrose/ Water 1 150ml.bag @ 100 mls/hr IVPB Q24H [facility] Rx#: [id number] Magnesium Sulfate-D5w Pmx 200 1 gm In Dextrose/Water 1 100ml.bag @ 100 mls/hr IVPB Q1H [facility] Rx#: [id number] Norepinephrin 4 mg-0.9% 500 250.000 89.25 Ns Pmx 4 mg In 250 ml @ Titrate IV .Q0M [facility] Rx#: [id number] Piperacillin-Tazobactam 3 50.0 .375 gm In Dextrose/Water 1 50ml.bag @ 12.5 mls/hr IVPB Q8H [facility] Rx#: [id number] Propofol 500 mg In Empty 193.249 243.604 81.466 Bag 1 bag @ Titrate IV . Q0M [facility] Rx#:[id number] Sodium Phosphate 10 mmol 250 In Sodium Chloride 0.9% 250 ml @ 125 mls/hr IVPB ONCE ONE Rx#:[id number] Vancomycin 1,500 mg In 250 Sodium Chloride 0.9% 250 ml @ 125 mls/hr IVPB Q8HR [facility] Rx#:[id number] Output: Gastric Drainage 800 50 Urine 1395 1855 345 Other: Voiding Method Indwelling Catheter Indwelling Catheter Indwelling Catheter ABP, PAP, CO, CI - Last Documented Arterial Blood Pressure 139/61 - Exam Physical exam 51-year-old male orally intubated sedated on propofol. Maintained on vent support did note the patient did have a temp of 101 this morning Lungs anterior diminished at the bases otherwise adequate air movement no wheezing noted Heart S1-S2 audible and regular no murmur monitor sinus heart rate 110 Abdomen flat nontender oral gastric tube in place connected to suction a few hypoactive bowel tones indwelling Magaña catheter in place no stool noted Extremities Venodyne's on to the bilateral lower extremities - Labs CBC & Chem 7: 05/28/16 04:30 05/28/16 12:00 Labs: Abnormal Lab Results - Last 24 Hours (Table) 05/27/16 05/27/16 05/28/16 Range/Units 18:26 23:32 04:30 RBC 3.87 L (4.30-5.90) m/uL MCV 101.2 H (80.0-100.0) fL Plt Count 83 L (150-450) k/uL Lymphocytes # 0.3 L (1.0-4.8) k/uL ABG pO2 (83-108) mmHg ABG HCO3 (21-25) mmol/L ABG Total CO2 (19-24) mmol/L ABG O2 Saturation (94-97) % Sodium (137-145) mmol/L Chloride (98-107) mmol/L Glucose (74-99) mg/dL POC Glucose (mg/dL) 130 H 143 H (75-99) mg/dL Calcium (8.4-10.2) mg/dL Phosphorus (2.5-4.5) mg/dL 05/28/16 05/28/16 05/28/16 Range/Units 04:30 05:29 08:36 RBC (4.30-5.90) m/uL MCV (80.0-100.0) fL Plt Count (150-450) k/uL Lymphocytes # (1.0-4.8) k/uL ABG pO2 58 L (83-108) mmHg ABG HCO3 26 H (21-25) mmol/L ABG Total CO2 27 H (19-24) mmol/L ABG O2 Saturation 90.0 L (94-97) % Sodium 148 H (137-145) mmol/L Chloride 112 H (98-107) mmol/L Glucose 166 H (74-99) mg/dL POC Glucose (mg/dL) 145 H (75-99) mg/dL Calcium 7.9 L (8.4-10.2) mg/dL Phosphorus 2.3 L (2.5-4.5) mg/dL 05/28/16 Range/Units 12:03 RBC (4.30-5.90) m/uL MCV (80.0-100.0) fL Plt Count (150-450) k/uL Lymphocytes # (1.0-4.8) k/uL ABG pO2 (83-108) mmHg ABG HCO3 (21-25) mmol/L ABG Total CO2 (19-24) mmol/L ABG O2 Saturation (94-97) % Sodium (137-145) mmol/L Chloride (98-107) mmol/L Glucose (74-99) mg/dL POC Glucose (mg/dL) 160 H (75-99) mg/dL Calcium (8.4-10.2) mg/dL Phosphorus (2.5-4.5) mg/dL Microbiology - Last 24 Hours (Table) 05/26/16 02:40 Gram Stain - Final Sputum Sputum Culture - Final 05/26/16 01:11 Blood Culture - Preliminary Blood No Growth after 48 hours 05/26/16 01:00 Urine Culture - Final Urine,Catheterized Assessment and Plan Plan: Impression Present on admission fever elevated lactic acid sepsis with septic shock suspect due to multilobular pneumonia Chronic alcoholism Current every day smoker greater than a 20 year history Anxiety depressive disorder nonspecified Multiple admissions for acute alcohol intoxication with impending DTs Acute exacerbation of COPD Present on admission hyponatremia sodium 126 Acute hypoxic respiratory failure necessitating intubation with vent support Elevated liver enzymes Episode of hypotension systolic blood pressure in the 50s placed on IV levophed necessitating a transfer to the intensive care unit Episode of acute metabolic encephalopathy suspect due to acute hypoxic respiratory distress necessitating transfer to the ICU subsequently intubated and sedated suspect due to sepsis with septic shock due to multilobular pneumonia CT of the brain shows left subdural hygroma 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 Hylton recommendations antibiotics Repeat labs in the morning The above dictated assessment and findings were discussed with dr guan . Impression and the plan of care have been dictated as directed. Traci Roe nurse practitioner acting as a scribe for dr guan
--- NOTE | 2016-05-28 13:37 | P.PN ---
Subjective 51-year-old being seen in the intensive care unit of the attending this morning. Patient continues sedated on vent support this been no new events. Family member at the bedside. Patient is scheduled for a bronchoscopy this morning by pulmonary Objective - Vital Signs Vital signs: Vital Signs Temp 99.5 F 05/28/16 12:00 Pulse 114 H 05/28/16 12:00 Resp 25 H 05/28/16 12:00 BP 103/72 05/28/16 12:00 Pulse Ox 93 L 05/28/16 12:00 Intake & Output 05/27/16 05/28/16 05/28/16 18:59 06:59 18:59 Intake Total 2142.835 6341.208 9043.716 Output Total 1395 2655 395 Balance 747.835 -925.396 790.716 Weight 84.6 kg Intake: IV 1227 1236 415 0.9 Pressure Bag 27 36 15 Sodium Chloride 0.9% 1, 1200 1200 300 000 ml @ 100 mls/hr IV . Q10H [facility] Rx#:[id number] Intake, IV Titration 915.835 493.604 770.716 Amount Cisatracurium 200 mg In 22.586 Sodium Chloride 0.9% 180 ml @ 3 MCG/KG/MIN 15.1 mls/hr IV .[id number] [facility] Rx #:[id number] Levofloxacin 750Mg-D5w 50 Pmx 750 mg In Dextrose/ Water 1 150ml.bag @ 100 mls/hr IVPB Q24H [facility] Rx#: [id number] Magnesium Sulfate-D5w Pmx 200 1 gm In Dextrose/Water 1 100ml.bag @ 100 mls/hr IVPB Q1H [facility] Rx#: [id number] Norepinephrin 4 mg-0.9% 500 250.000 89.25 Ns Pmx 4 mg In 250 ml @ Titrate IV .Q0M [facility] Rx#: [id number] Piperacillin-Tazobactam 3 50.0 .375 gm In Dextrose/Water 1 50ml.bag @ 12.5 mls/hr IVPB Q8H [facility] Rx#: [id number] Propofol 500 mg In Empty 193.249 243.604 81.466 Bag 1 bag @ Titrate IV . Q0M [facility] Rx#:[id number] Sodium Phosphate 10 mmol 250 In Sodium Chloride 0.9% 250 ml @ 125 mls/hr IVPB ONCE ONE Rx#:[id number] Vancomycin 1,500 mg In 250 Sodium Chloride 0.9% 250 ml @ 125 mls/hr IVPB Q8HR [facility] Rx#:[id number] Output: Gastric Drainage 800 50 Urine 1395 1855 345 Other: Voiding Method Indwelling Catheter Indwelling Catheter Indwelling Catheter ABP, PAP, CO, CI - Last Documented Arterial Blood Pressure 139/61 - Labs CBC & Chem 7: 05/28/16 04:30 05/28/16 12:00 Labs: Abnormal Lab Results - Last 24 Hours (Table) 05/27/16 05/27/16 05/28/16 Range/Units 18:26 23:32 04:30 RBC 3.87 L (4.30-5.90) m/uL MCV 101.2 H (80.0-100.0) fL Plt Count 83 L (150-450) k/uL Lymphocytes # 0.3 L (1.0-4.8) k/uL ABG pO2 (83-108) mmHg ABG HCO3 (21-25) mmol/L ABG Total CO2 (19-24) mmol/L ABG O2 Saturation (94-97) % Sodium (137-145) mmol/L Chloride (98-107) mmol/L Glucose (74-99) mg/dL POC Glucose (mg/dL) 130 H 143 H (75-99) mg/dL Calcium (8.4-10.2) mg/dL Phosphorus (2.5-4.5) mg/dL 05/28/16 05/28/16 05/28/16 Range/Units 04:30 05:29 08:36 RBC (4.30-5.90) m/uL MCV (80.0-100.0) fL Plt Count (150-450) k/uL Lymphocytes # (1.0-4.8) k/uL ABG pO2 58 L (83-108) mmHg ABG HCO3 26 H (21-25) mmol/L ABG Total CO2 27 H (19-24) mmol/L ABG O2 Saturation 90.0 L (94-97) % Sodium 148 H (137-145) mmol/L Chloride 112 H (98-107) mmol/L Glucose 166 H (74-99) mg/dL POC Glucose (mg/dL) 145 H (75-99) mg/dL Calcium 7.9 L (8.4-10.2) mg/dL Phosphorus 2.3 L (2.5-4.5) mg/dL 05/28/16 Range/Units 12:03 RBC (4.30-5.90) m/uL MCV (80.0-100.0) fL Plt Count (150-450) k/uL Lymphocytes # (1.0-4.8) k/uL ABG pO2 (83-108) mmHg ABG HCO3 (21-25) mmol/L ABG Total CO2 (19-24) mmol/L ABG O2 Saturation (94-97) % Sodium (137-145) mmol/L Chloride (98-107) mmol/L Glucose (74-99) mg/dL POC Glucose (mg/dL) 160 H (75-99) mg/dL Calcium (8.4-10.2) mg/dL Phosphorus (2.5-4.5) mg/dL Microbiology - Last 24 Hours (Table) 05/26/16 02:40 Gram Stain - Final Sputum Sputum Culture - Final 05/26/16 01:11 Blood Culture - Preliminary Blood No Growth after 48 hours 05/26/16 01:00 Urine Culture - Final Urine,Catheterized Assessment and Plan Plan: Impression Present on admission fever elevated lactic acid sepsis with septic shock suspect due to multilobular pneumonia Chronic alcoholism Current every day smoker greater than a 20 year history Anxiety depressive disorder nonspecified Multiple admissions for acute alcohol intoxication with impending DTs Acute exacerbation of COPD Present on admission hyponatremia sodium 126 Acute hypoxic respiratory failure necessitating intubation with vent support Elevated liver enzymes Episode of hypotension systolic blood pressure in the 50s placed on IV levophed necessitating a transfer to the intensive care unit Episode of acute metabolic encephalopathy suspect due to acute hypoxic respiratory distress necessitating transfer to the ICU subsequently intubated and sedated suspect due to sepsis with septic shock due to multilobular pneumonia CT of the brain shows left subdural hygroma 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 Hylton recommendations antibiotics Repeat labs in the morning The above dictated assessment and findings were discussed with dr guan . Impression and the plan of care have been dictated as directed. Traci Roe nurse practitioner acting as a scribe for dr guan
[2016-05-28] MEDS ORDERED: POTASSIUM CHLORIDE ORAL LIQUID 40 MEQ/30 ML CUP NG-TUBE ONE ×2 (14:00→19:00)
--- NOTE | 2016-05-28 16:44 | P.CONS ---
History of Present Illness - Reason for Consult Consult date: 05/28/16 thrombocytopenia Requesting physician: Traci Roe - Chief Complaint sepsis - History of Present Illness Pt is seen today, he is sedated and mechanically ventilated. Chart for this visit and labs from last 2 years were reviewed Review of Systems ROS unobtainable: due to endotracheal tube Past Medical History Past Medical History: COPD, Hypertension, Osteoarthritis (OA), Seizure Disorder Additional Past Medical History / Comment(s): etoh abuse, chronic back pain, tinnitus, neuropathy, head injur 1.5 years ago-fell down stairs hit head, statd has had blance issues and short term memory issues. History of Any Multi-Drug Resistant Organisms: None Reported Past Surgical History: No Surgical Hx Reported Additional Past Surgical History / Comment(s): wisdom teeth removed Past Anesthesia/Blood Transfusion Reactions: No Reported Reaction Past Psychological History: Anxiety, Depression Smoking Status: Current every day smoker Past Alcohol Use History: Abuse, Daily, Heavy Additional Past Alcohol Use History / Comment(s): 1 pack of cig lasts 4 days, hx. of alcohol abuse but is "cutting back",6 beers daily maybe 4-5 days of the week but occ will binge drink Past Drug Use History: None Reported - Past Family History Mother Additional Family Medical History / Comment(s): Dementia Father Family Medical History: Cancer Additional Family Medical History / Comment(s): Colon CA Medications and Allergies Home Medications Medication Instructions Recorded Confirmed Type Multivitamin [Multivitamins Adult 1 tab PO DAILY 10/30/14 05/25/16 History Gummies] PARoxetine HCL [Paroxetine HCl] 20 mg PO DAILY 06/12/15 05/25/16 History amLODIPine BESYLATE [Amlodipine 5 mg PO DAILY 06/12/15 05/25/16 History Besylate] cloNIDine HCL 0.3 mg PO TID 06/12/15 05/25/16 History Meloxicam [Mobic] 7.5 mg PO DAILY 10/04/15 05/25/16 History Montelukast [Singulair] 10 mg PO HS 10/04/15 05/25/16 History levETIRAcetam 1,000 mg PO BID 10/04/15 05/25/16 History Gabapentin [Neurontin] 100 mg PO BID 05/05/16 05/25/16 History Pregabalin [Lyrica] 75 mg PO BID 05/10/16 05/25/16 History ARIPiprazole [Abilify] 2 mg PO DAILY 05/25/16 05/25/16 History Budesonide/Formoterol Fumarate 2 puff INHALATION RT-DAILY 05/25/16 05/25/16 History [Symbicort 160-4.5 Mcg Inhaler] Allergies Allergy/AdvReac Type Severity Reaction Status Date / Time No Known Allergies Allergy Verified 05/25/16 09:20 Physical Exam Vitals: Vital Signs Temp Pulse Pulse Resp BP BP BP 05/28/16 16:00 99.1 F 74 18 126/82 05/28/16 15:00 91 17 126/82 05/28/16 14:00 101 H 16 105/72 05/28/16 13:47 90 05/28/16 13:00 87 20 105/72 05/28/16 12:00 99.5 F 114 H 20 103/72 05/28/16 11:00 107 H 16 103/72 05/28/16 10:00 101.7 F H 112 H 16 99/70 05/28/16 09:00 119 H 16 99/70 05/28/16 08:23 102.7 F H 114 H 16 99/70 98/60 05/28/16 08:00 102.7 F H 124 H 16 05/28/16 07:48 118 H 05/28/16 07:38 116 H 05/28/16 07:00 124 H 16 05/28/16 06:00 101 H 20 05/28/16 05:00 96 19 05/28/16 04:00 99 F 99 16 05/28/16 03:45 99 05/28/16 03:29 93 05/28/16 03:00 98 18 05/28/16 02:00 103 H 25 H 05/28/16 01:00 114 H 22 05/28/16 00:00 101 F H 104 H 23 05/27/16 23:55 111 H 05/27/16 23:41 99 05/27/16 23:00 95 16 05/27/16 22:00 99 16 05/27/16 21:00 95 21 05/27/16 20:48 98 05/27/16 20:00 98.8 F 132 H 27 H 05/27/16 19:53 110 H 05/27/16 19:00 86 22 05/27/16 18:00 82 21 05/27/16 17:00 77 22 Pulse Ox 05/28/16 16:00 93 L 05/28/16 15:00 92 L 05/28/16 14:00 94 L 05/28/16 13:47 05/28/16 13:00 94 L 05/28/16 12:00 93 L 05/28/16 11:00 92 L 05/28/16 10:00 93 L 05/28/16 09:00 95 05/28/16 08:23 94 L 05/28/16 08:00 98 05/28/16 07:48 05/28/16 07:38 05/28/16 07:00 95 05/28/16 06:00 87 L 05/28/16 05:00 90 L 05/28/16 04:00 93 L 05/28/16 03:45 05/28/16 03:29 05/28/16 03:00 89 L 05/28/16 02:00 90 L 05/28/16 01:00 90 L 05/28/16 00:00 91 L 05/27/16 23:55 05/27/16 23:41 05/27/16 23:00 91 L 05/27/16 22:00 91 L 05/27/16 21:00 92 L 05/27/16 20:48 05/27/16 20:00 91 L 05/27/16 19:53 05/27/16 19:00 93 L 05/27/16 18:00 93 L 05/27/16 17:00 93 L Intake and Output 05/28/16 05/28/16 05/28/16 06:59 14:59 22:59 Intake Total 3725.772 4821.944 547.052 Output Total 2170 760 124 Balance -974.675 849.944 423.052 Intake: IV 824 724 206 0.9 Pressure Bag 24 24 6 Sodium Chloride 0.9% 1, 800 600 200 000 ml @ 100 mls/hr IV . Q10H [facility] Rx#:[id number] Intake, IV Titration 371.325 885.944 341.052 Amount Levofloxacin 750Mg-D5w 150 Pmx 750 mg In Dextrose/ Water 1 150ml.bag @ 100 mls/hr IVPB Q24H [facility] Rx#: [id number] Norepinephrin 4 mg-0.9% 177.375 89.25 145 Ns Pmx 4 mg In 250 ml @ Titrate IV .Q0M [facility] Rx#: [id number] Piperacillin-Tazobactam 3 50.0 25.0 .375 gm In Dextrose/Water 1 50ml.bag @ 12.5 mls/hr IVPB Q8H [facility] Rx#: [id number] Propofol 500 mg In Empty 193.95 81.466 Bag 1 bag @ Titrate IV . Q0M [facility] Rx#:[id number] Propofol 500 mg In Empty 15.228 46.052 Bag 1 bag @ Titrate IV . Q0M [facility] Rx#:[id number] Sodium Phosphate 10 mmol 250 In Sodium Chloride 0.9% 250 ml @ 125 mls/hr IVPB ONCE ONE Rx#:[id number] Vancomycin 1,500 mg In 250 125 Sodium Chloride 0.9% 250 ml @ 125 mls/hr IVPB Q8HR [facility] Rx#:[id number] Output: Gastric Drainage 800 150 50 Urine 1370 610 74 Other: Voiding Method Indwelling Catheter Indwelling Catheter Weight 84.6 kg 84.6 kg Patient Weight 05/29/16 06:59 Weight 84.6 kg ABP, PAP, CO, CI - Last 8 Hours Arterial Blood Pressure 130/61 Arterial Blood Pressure 104/57 Arterial Blood Pressure 105/52 Arterial Blood Pressure 107/53 Arterial Blood Pressure 139/61 Arterial Blood Pressure 85/67 Arterial Blood Pressure 96/58 Arterial Blood Pressure 103/58 - Constitutional General appearance: obese - Respiratory Respiratory: bilateral: CTA - Cardiovascular Rhythm: regular Heart sounds: normal: S1, S2 leg Peripheral Edema: bilateral: 2+ - Gastrointestinal General gastrointestinal: no absent bowel sounds, decreased bowel sounds, distended, no hepatomegaly, no hyperactive bowel sounds, no organomegaly, no rigid, no scaphoid, soft, no splenomegaly, no tenderness, no umbilical hernia, no ventral hernia - Integumentary scabs noted on nose, lip and leg. - Psychiatric Psychiatric: no A&O x's 3, no appropriate affect, no intact judgment & insight No blood noted in NG, smith, in IV or central lines, no oozing from IV insertion sites Results CBC & Chem 7: 05/28/16 04:30 05/28/16 12:00 Labs: Abnormal Lab Results - Last 24 Hours (Table) 05/27/16 05/27/16 05/28/16 Range/Units 18:26 23:32 04:30 RBC 3.87 L (4.30-5.90) m/uL MCV 101.2 H (80.0-100.0) fL Plt Count 83 L (150-450) k/uL Lymphocytes # 0.3 L (1.0-4.8) k/uL ABG pO2 (83-108) mmHg ABG HCO3 (21-25) mmol/L ABG Total CO2 (19-24) mmol/L ABG O2 Saturation (94-97) % Sodium (137-145) mmol/L Chloride (98-107) mmol/L Glucose (74-99) mg/dL POC Glucose (mg/dL) 130 H 143 H (75-99) mg/dL Calcium (8.4-10.2) mg/dL Phosphorus (2.5-4.5) mg/dL 05/28/16 05/28/16 05/28/16 Range/Units 04:30 05:29 08:36 RBC (4.30-5.90) m/uL MCV (80.0-100.0) fL Plt Count (150-450) k/uL Lymphocytes # (1.0-4.8) k/uL ABG pO2 58 L (83-108) mmHg ABG HCO3 26 H (21-25) mmol/L ABG Total CO2 27 H (19-24) mmol/L ABG O2 Saturation 90.0 L (94-97) % Sodium 148 H (137-145) mmol/L Chloride 112 H (98-107) mmol/L Glucose 166 H (74-99) mg/dL POC Glucose (mg/dL) 145 H (75-99) mg/dL Calcium 7.9 L (8.4-10.2) mg/dL Phosphorus 2.3 L (2.5-4.5) mg/dL 05/28/16 Range/Units 12:03 RBC (4.30-5.90) m/uL MCV (80.0-100.0) fL Plt Count (150-450) k/uL Lymphocytes # (1.0-4.8) k/uL ABG pO2 (83-108) mmHg ABG HCO3 (21-25) mmol/L ABG Total CO2 (19-24) mmol/L ABG O2 Saturation (94-97) % Sodium (137-145) mmol/L Chloride (98-107) mmol/L Glucose (74-99) mg/dL POC Glucose (mg/dL) 160 H (75-99) mg/dL Calcium (8.4-10.2) mg/dL Phosphorus (2.5-4.5) mg/dL Microbiology - Last 24 Hours (Table) 05/26/16 02:40 Gram Stain - Final Sputum Sputum Culture - Final 05/26/16 01:11 Blood Culture - Preliminary Blood No Growth after 48 hours 05/26/16 01:00 Urine Culture - Final Urine,Catheterized Assessment and Plan (1) Thrombocytopenia Narrative/Plan: Pt is noted to have thrombocytopenia as far back as 2014, likely related to ETOH /cirrhotic liver and splenic sequestration. Labs reviewed, noted to be normal at times, low during acute illness. At this time pt is acutely ill, platelet count is actually stable. If pt requires therapeutic anticoagulation it is ok to treat as long as platelet counts remain about 50,000. We will monitor platelet counts but no other acute work up planned at this time. Status: Chronic
--- NOTE | 2016-05-28 17:19 | PN ---
CRITICAL CARE PROGRESS DATE OF SERVICE: 05/28/2016] Critical care time was spent 35 minutes. Mr. Alvarado Manriquez was seen, evaluated, examined ICU. Patient has noted to have a drop in oxygen saturation into the 70s requiring prompting of PEEP to 15, with that Sat came up into the mid 90s. Patient has been on diuresis but does have ( ) sensation. On examination, he has significant respiratory secretions as well. Discussed with the primary service will proceed with bronchoscopy for pulmonary toilet as well. Patient is off of Nimbex for 24 hours; however, he is on 50 mcg of propofol. With that, the patient is sedated but has intermittent episodes of coughing and bronchospasm. The patient is being treated for broad-spectrum antibiotics for bilateral pneumonia and respiratory failure as well. Vent setting includes assist control rate of 16, tidal volume of 500, PEEP has been escalated from 5 to 15, remains on 100% oxygen. He has OG tube. Plan is to start the tube feed as well. His culture results and reports are reviewed. Blood cultures no growth. Urine culture no growth so far. The sputum obtained yesterday, no organism is seen. The last chest x-ray performed earlier today has been reviewed and compared with the prior x-ray. The ET tube is relatively more stable now then dense infiltrate bilaterally has been seen involving the left side as well as the right side with small right-sided pleural effusion is seen, worsening in infiltrate on the left side is noted with developing infiltrate on the right base. Other laboratory data reviewed. White cell count is 6500, hemoglobin 13 and 39, platelet count of 83,000. Arterial blood gas revealed pH 7.4, pCO2 43, pO2 58. The chemistry reviewed sodium 140, potassium 3.7. BUN and creatinine 15 and 0.72. Urinalysis showed a few WBC, RBCs are seen. Urine for drug screen was positive for benzodiazepine. On examination: HEENT EXAMINATION: Otherwise unremarkable and oral mucosa is moist. NECK: Supple. LUNGS: Bilateral good in good air entry is present with bronchial breath sound at the bases. HEART: Regular rate and rhythm. S1 and S2 audible. ABDOMEN: Soft. No rebound or rigidity. EXTREMITIES: +1 peripheral pulses. NEUROLOGICAL EXAMINATION: Sedated with propofol. Labs reviewed. As dictated above. Culture results and reports reviewed. Medications include: 1. Tylenol as needed. 2. DuoNeb updraft 4 times a day. 3. Abilify 2 mg daily. 4. Pulmicort 2 times a day. 5. Chlorhexidine. 6. Also on Lasix 40 mg IV q.8. 7. Neurontin 100 mg 2 times a day. 8. Heparin 5000 units subcutaneously q.8 hourly. 9. Keppra 1 gram 2 times a day. 10. Levaquin 750 mg daily. 11. Ativan. 12. Morphine as needed. 13. Solu-Medrol 60 q.8 hourly. 14. K-Mag-Phos replacement protocol. 15. Also on Levophed 8 mcg. 16. Off of Nimbex drip. 17. Protonix 40 mg daily. 18. Zosyn 3.375. 19. The patient is on vancomycin as well. IMPRESSION: 1. Bilateral pneumonia and acute hypoxic respiratory failure. 2. Acute lung injury and acute respiratory distress syndrome related to pneumonia and likely mixed bacterial and gram-negative however, cultures have been negative. Plan is for bronchoscopy and pulmonary toilet later on today. 3. Suspect component of intravascular depletion and dehydration. Would lower down the Lasix to once daily at this point of time. 4. Extensive history of alcohol consumption. 5. Chronic obstructive pulmonary disease, patient is on breathing treatments, steroids, and, antibiotics. We will monitor and observe. Maintain patient on DVT and peptic ulcer disease prophylaxis. Critical care time spent 35 minutes.
[2016-05-28 18:15] LABS: Glucose,Whole Blood 161 mg/dL (75-99)
--- NOTE | 2016-05-28 22:21 | P.PN ---
Subjective Principal diagnosis: seizure Note is being completed a second time due to electronic charting system failure prior to completion of the note. Patient is a 51-year-old male being followed by neurology for seizures. Patient has a history of COPD. Brought to the emergency room with complaints of shortness of breath. D-dimer was elevated and a CT scan the chest showed evidence of multilobe pneumonia. Patient was febrile on admission. Patient's respiratory status worsened and had to be intubated and sedated. Patient does have a history of seizure disorder although it is unclear if it is epileptic or recurrent due to alcohol withdrawal seizures. Home medications indicate the patient is on Keppra 1000 mg twice a day, low- dose Lyrica and Neurontin at home. Nursing staff reports that he has not had any seizure-like activity since his admission. On contact, the patient is intubated and sedated in the intensive care unit. Patient is on IV antibiotics. 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 Generalized atrophy noted. CMP noted hepatic insufficiency with elevated AST and ALT. Patient also has mild hypocalcemia. CBC noted thrombocytopenia. UA and noted moderate blood and urine drug screen was positive for benzodiazepines. Patient appears visually unchanged from yesterday. Objective - Vital Signs Vital signs: Vital Signs Temp 99.4 F 05/28/16 20:00 Pulse 84 05/28/16 21:00 Resp 18 05/28/16 20:00 BP 115/76 05/28/16 21:00 Pulse Ox 95 05/28/16 21:00 Intake & Output 05/28/16 05/28/16 05/29/16 06:59 18:59 06:59 Intake Total 2138.744 2021.138 516.660 Output Total 2655 974 110 Balance -627.021 0895.138 406.660 Weight 84.6 kg 84.6 kg Intake: IV 1236 1136 306 0.9 Pressure Bag 36 36 106 Sodium Chloride 0.9% 1, 1200 1000 200 000 ml @ 100 mls/hr IV . Q10H [facility] Rx#:[id number] Intake, IV Titration 667.363 3137.138 190.660 Amount Levofloxacin 750Mg-D5w 150 Pmx 750 mg In Dextrose/ Water 1 150ml.bag @ 100 mls/hr IVPB Q24H [facility] Rx#: [id number] Norepinephrin 4 mg-0.9% 250.000 234.25 121.375 Ns Pmx 4 mg In 250 ml @ Titrate IV .Q0M [facility] Rx#: [id number] Piperacillin-Tazobactam 3 100.0 .375 gm In Dextrose/Water 1 50ml.bag @ 12.5 mls/hr IVPB Q8H [facility] Rx#: [id number] Propofol 500 mg In Empty 243.604 81.466 Bag 1 bag @ Titrate IV . Q0M [facility] Rx#:[id number] Propofol 500 mg In Empty 129.422 69.285 Bag 1 bag @ Titrate IV . Q0M [facility] Rx#:[id number] Sodium Phosphate 10 mmol 250 In Sodium Chloride 0.9% 250 ml @ 125 mls/hr IVPB ONCE ONE Rx#:[id number] Vancomycin 1,500 mg In 500 Sodium Chloride 0.9% 250 ml @ 125 mls/hr IVPB Q8HR [facility] Rx#:[id number] Tube Feeding 20 20 Output: Gastric Drainage 800 200 Urine 1855 774 110 Other: Voiding Method Indwelling Catheter Indwelling Catheter Indwelling Catheter ABP, PAP, CO, CI - Last Documented Arterial Blood Pressure 118/63 - Exam Constitutional: in the ICU, sedated on ventilator. HEENT: NC/AT, Supple, no masses, no facial asymmetry noted on exam. ET tube is intact. Respiratory: patient on ventilator Cardiac: Regular rate and Rhythm GI: non tender, non distended Musculoskeletal: Breadman strengths are equal bilaterally 0/5, Lower extremity strengths are equal bilaterally at 0/5. Neurological: intubated and sedated. No obvious facial asymmetry seen. Plantar reflex showed silent toes bilaterally. No tremors or seizure-like activity is seen. Pupils equally round and fixed. Integementary: no rash, no erythema Psychiatric: absent mood or affect - Constitutional Constitutional Comment(s): all systems not previously noted in HPI or negative. - Labs CBC & Chem 7: 05/28/16 04:30 05/28/16 18:10 Labs: Abnormal Lab Results - Last 24 Hours (Table) 05/27/16 05/28/16 05/28/16 Range/Units 23:32 04:30 04:30 RBC 3.87 L (4.30-5.90) m/uL MCV 101.2 H (80.0-100.0) fL Plt Count 83 L (150-450) k/uL Lymphocytes # 0.3 L (1.0-4.8) k/uL ABG pO2 (83-108) mmHg ABG HCO3 (21-25) mmol/L ABG Total CO2 (19-24) mmol/L ABG O2 Saturation (94-97) % Sodium 148 H (137-145) mmol/L Chloride 112 H (98-107) mmol/L Glucose 166 H (74-99) mg/dL POC Glucose (mg/dL) 143 H (75-99) mg/dL Calcium 7.9 L (8.4-10.2) mg/dL Phosphorus 2.3 L (2.5-4.5) mg/dL 05/28/16 05/28/16 05/28/16 Range/Units 05:29 08:36 12:03 RBC (4.30-5.90) m/uL MCV (80.0-100.0) fL Plt Count (150-450) k/uL Lymphocytes # (1.0-4.8) k/uL ABG pO2 58 L (83-108) mmHg ABG HCO3 26 H (21-25) mmol/L ABG Total CO2 27 H (19-24) mmol/L ABG O2 Saturation 90.0 L (94-97) % Sodium (137-145) mmol/L Chloride (98-107) mmol/L Glucose (74-99) mg/dL POC Glucose (mg/dL) 145 H 160 H (75-99) mg/dL Calcium (8.4-10.2) mg/dL Phosphorus (2.5-4.5) mg/dL 05/28/16 Range/Units 18:06 RBC (4.30-5.90) m/uL MCV (80.0-100.0) fL Plt Count (150-450) k/uL Lymphocytes # (1.0-4.8) k/uL ABG pO2 (83-108) mmHg ABG HCO3 (21-25) mmol/L ABG Total CO2 (19-24) mmol/L ABG O2 Saturation (94-97) % Sodium (137-145) mmol/L Chloride (98-107) mmol/L Glucose (74-99) mg/dL POC Glucose (mg/dL) 161 H (75-99) mg/dL Calcium (8.4-10.2) mg/dL Phosphorus (2.5-4.5) mg/dL Microbiology - Last 24 Hours (Table) 05/28/16 14:10 Urine Culture - Preliminary Urine,Catheterized 05/28/16 11:30 Bronchial Washings Culture - Preliminary Bronchial Washings - Right 05/28/16 11:30 Fungal Culture - Preliminary Bronchial Washings - Right 05/26/16 02:40 Gram Stain - Final Sputum Sputum Culture - Final 05/26/16 01:11 Blood Culture - Preliminary Blood No Growth after 48 hours Assessment and Plan (1) COPD (chronic obstructive pulmonary disease) Status: Acute (2) Pneumonia Status: Acute (3) Alcohol dependence Status: Acute (4) Seizures Status: Acute Plan: Patient has not any seizure-like activity since his admission. Etiology of seizures is unclear at this time, possibly related to EtOH withdrawal. Patient to maintain Keppra 1000 mg twice a day. Continue seizure precautions and neurological checks. Occupational therapy and physical therapy have been consulted. EEG noted mild to moderate encephalopathy. Keppra level pending. Status: Neurology will continue to follow and provide updates as needed or warranted. Feel free to contact our office with any questions or concerns. I discussed the patient's pertinent medical information with Dr. Contreras. He agrees with the plan of care as implemented.
--- NOTE | 2016-05-28 22:37 | PCN ---
DATE OF PROCEDURE: PROCEDURE PERFORMED : 1. Bronchoscopy. 2. Bronchoalveolar large. INDICATIONS: 1. Acute hypoxic respiratory failure. 2. ARDS and acute lung injury. 3. Bilateral pneumonia, more so on the right side compared to the left side. 4. Mucous plugging and impaction. Operative detail: Patient already intubated. OPERATIVE DETAIL: Patient prepared in the usual fashion. Already patient is on propofol drip and 100% oxygen and PEEP of 15. Fiber-optic bronchoscope was passed through the ET tube. The ET tube tip in stable position above the jesús. Tip of the scope was passed to the left side. Mild erythema and ( ) bilaterally was noted, right upper lobe, right middle lobe, right lower lobe inspected. BAL was performed from the right upper lobe as well as the right lower lobe. The scope was withdrawn. Sats dropped down into 80s and then 70s, wait for the Sats to come back up. The tip of the scope was passed again through the ET tube. Quick cleaning of the left side was performed as well. No endobronchial mass or lesion was seen. Patient tolerated the procedure well. No complications noted. Fluid is being sent for Gram stain, culture, cytology, also for pneumocystis and bacterial fungal and TB cultures as well. Patient tolerated the procedure well except transient desaturation. Scope was withdrawn. Patient was connected with respirator. Patient was kept on respirator and kept on vent settings as dictated previously.
--- NOTE | 2016-05-28 22:43 | PCN ---
DATE OF PROCEDURE: PROCEDURE PERFORMED: Right-sided radial heart failure single-lumen catheter placement. INDICATIONS: 1. Acute hypoxic respiratory failure. 2. Bilateral pneumonia. 3. Severe sepsis, and septic shock. 4. Hypertension. Surgeon include: Felisa ( )Dr. Francois. OPERATIVE DETAIL: Patient was prepared and draped in the usual fashion. Kvng test was performed. Under aseptic technique, single-lumen catheter inserted into the right radial artery without any difficulty. Patient tolerated the procedure well. After placement of the needle, guidewire was placed. The needle was withdrawn, over the guidewire single-lumen catheter was placed into the right radial artery, secured with #3 silk and covered with pressure dressing after removal of wire. Patient tolerated the procedure well. No complication noted. Able to get access in first attempt. No complication postprocedure noted.
--- NOTE | 2016-05-28 22:51 | PCN ---
DATE OF PROCEDURE: 05/27/2016 PROCEDURE: Central line placement. INDICATIONS: 1. Acute hypoxic respiratory failure. 2. Severe sepsis and septic shock, hypotension. 3. Bilateral pneumonia and sepsis. OPERATIVE DETAIL: Patient was prepared and draped in the usual fashion. Using a modified Seldinger technique, triple-lumen catheter was inserted into the right internal jugular vein via posterior approach, secured with #3 silk. All 3 ports were flushed. A chest x-ray post-procedure was reviewed: good position of triple-lumen catheter. Patient tolerated the procedure well. No complication noted.
[2016-05-29] MEDS: PROPOFOL 500 MG in EMPTY BAG 1 BAG IV SCH ×13 (00:14→22:23)
[2016-05-29] MEDS: PIPERACILLIN-TAZOBACTAM 3.375 GM in DEXTROSE/WATER 1 50ML.BAG IVPB SCH ×4 (00:15→21:18)
[2016-05-29] MEDS: VANCOMYCIN 1,500 MG in SODIUM CHLORIDE 0.9% 250 ML IVPB SCH (00:56)
[2016-05-29] MEDS: HEPARIN SODIUM,PORCINE 5,000 UNIT/ML 1 ML VIAL SQ SCH ×3 (00:58→16:36)
[2016-05-29] MEDS: methylPREDNISolone SOD SUCCI 125 MG/2 ML VIAL IV SCH ×3 (00:58→16:36)
[2016-05-29] MEDS: CHLORHEXIDINE GLUCONATE 15 ML CUP MUCOUS MEM SCH ×3 (00:58→20:53)
[2016-05-29] MEDS: levETIRAcetam 500 MG TAB PO SCH ×3 (00:59→20:53)
[2016-05-29] MEDS: MONTELUKAST 10 MG TAB PO SCH ×2 (00:59→20:53)
[2016-05-29] MEDS: GABAPENTIN 100 MG CAP PO SCH ×2 (00:59→20:53)
[2016-05-29] MEDS: INSULIN LISPRO (humaLOG) 300 UNIT/3 ML VIAL SQ SCH ×4 (01:06→18:25)
[2016-05-29 01:08] LABS: Glucose,Whole Blood 133 mg/dL (75-99)
[2016-05-29] MEDS: PREGABALIN 75 MG CAP PO SCH ×3 (01:10→20:53)
[2016-05-29] MEDS: HYDROmorphone 2 MG/ML 1 ML SYRINGE IVP PRN ×3 (03:10→15:09)
[2016-05-29] MEDS: SODIUM CHLORIDE 0.9% 1,000 ML IV SCH ×3 (03:19→16:35)
[2016-05-29 05:20] LABS: Basophils # (A) 0.1 k/uL (0-0.2); Basophils % (A) 1 %; CH 33.9; CHCM 32.6; Eosinophils % (A) 0 %; HCT 37.8 % (39.0-53.0); HDW 3.13; HGB 12.4 gm/dL (13.0-17.5); Luc # (Auto) 0.26; Luc % (Auto) 4; Lymphocytes # (A) 0.2 k/uL (1.0-4.8); Lymphocytes % (A) 4 %; MCH 34.3 pg (25.0-35.0); MCHC 32.8 g/dL (31.0-37.0); MCV 104.6 fL (80.0-100.0); Macrocytosis Moderate; Mean Platelet Volume 8.5; Monocytes # (A) 0.2 k/uL (0-1.0); Monocytes % (A) 3 %; Neutrophils # (A) 5.2 k/uL (1.3-7.7); Neutrophils % (A) 88 %; RBC 3.61 m/uL (4.30-5.90); RDW 14.9 % (11.5-15.5); WBC (Perox) 6.55
[2016-05-29 05:29] LABS: ABG Base Excess -1.4 mmol/L; ABG HCO3 24 mmol/L (21-25); ABG PCO2 50 mmHg (35-45); ABG PH 7.31 (7.35-7.45); ABG PO2 92 mmHg (83-108); ABG TCO2 26 mmol/L (19-24)
[2016-05-29 06:10] LABS: ALT 48 U/L (21-72); AST 100 U/L (17-59); Alkaline Phosphatase 51 U/L (38-126); Amylase 62 U/L (30-110); Anion Gap 5 mmol/L; Blood Urea Nitrogen 22 mg/dL (9-20); Calcium 8.4 mg/dL (8.4-10.2); Carbon Dioxide 27 mmol/L (22-30); Chloride 118 mmol/L (98-107); Glucose 141 mg/dL (74-99); Magnesium 2.7 mg/dL (1.6-2.3); Non-African American GFR(MDRD) >60 (>60 ml/min/1.73 sqM); Phosphorous 2.9 mg/dL (2.5-4.5); Potassium 4.1 mmol/L (3.5-5.1); Sodium 150 mmol/L (137-145); Total Bilirubin 0.5 mg/dL (0.2-1.3); Total Protein 5.4 g/dL (6.3-8.2)
[2016-05-29 06:40] LABS: Glucose,Whole Blood 127 mg/dL (75-99)
[2016-05-29] MEDS ORDERED: VANCOMYCIN TROUGH DUE 1 EACH MISC MISCELLANE ONE (07:00)
--- NOTE | 2016-05-29 08:03 | XR ---
EXAMINATION TYPE: XR chest 1V portable DATE OF EXAM: 05/29/2016 7:04 AM COMPARISON: 05/28/2016 INDICATION: Difficulty breathing TECHNIQUE: Single frontal view of the chest is obtained. FINDINGS: The heart size is normal. The pulmonary vasculature is normal. There is a consolidation in the left lower lobe. A large consolidation is in the right midlung. A catheter is present on the right with the tip in the superior vena cava region. Endotracheal tube i s present with the tip above the jesús. Nasogastric tube transverses the thorax. EKG leads overlie t he chest. IMPRESSION: 1. Large consolidation right midlung. Correlate for pneumonia. 2. Mild increasing left lower lobe infiltrate. Correlate for developing pneumonia. 3. Lines and catheters discussed above.
[2016-05-29] MEDS: BUDESONIDE 1 MG/2 ML NEBU INHALATION SCH ×2 (08:11→19:41)
[2016-05-29] MEDS: IPRATROPIUM-ALBUTEROL 3 ML NEB INHALATION SCH ×3 (08:11→19:41)
[2016-05-29] MEDS: ARIPiprazole 2 MG TAB PO SCH (08:52)
[2016-05-29] MEDS: FUROSEMIDE 10 MG/ML 4 ML VIAL IV SCH (08:52)
[2016-05-29] MEDS: PANTOPRAZOLE 40 MG/10 ML VIAL IV SCH (08:53)
[2016-05-29] MEDS: MULTIVITAMINS, THERA 1 EACH TAB PO SCH (08:53)
[2016-05-29] MEDS: PARoxetine 20 MG TAB PO SCH (08:53)
--- NOTE | 2016-05-29 09:09 | CONS ---
DATE OF CONSULTATION: DATE OF SERVICE: 05/28/2016 REASON FOR CONSULTATION: Pneumonia and fever. HISTORY OF PRESENT ILLNESS: The patient is a 51-year-old male who was originally admitted to the hospital on 05/25/2016 after apparently the patient presented with increasing shortness of breath, cough and confusion. Patient did have fever of 101 degrees Fahrenheit on admission with elevated lactic acid. The patient did have elevated D-dimer. A CT angiogram was done which favored trilobar pneumonia, CHF, PE not excluded. Patient was initially admitted to the medical floor; however, with increase in respiratory distress and confusion he has been transferred to the ICU. The patient has been intubated. The patient did have blood culture obtained on admission as well as sputum has been negative so far. With persistent fever, the patient has been bronched today. Follow-up x-ray shows persistent right middle lobe pneumonia. ID was consulted for further recommendation regarding antibiotic therapy. Patient remains to be intubated on the vent, sedated. Did not require any pressor support though was requiring fluid bolus. REVIEW OF SYSTEMS: Could not be reliable obtained , positive points as per HPI. PAST MEDICAL HISTORY: Significant for seizure disorder, osteoarthritis, COPD, hypertension, alcohol abuse, chronic back pain, neuropathy. PAST SURGICAL HISTORY: [place] teeth removed, no other major surgery. SOCIAL HISTORY: Patient is a current every day smoker and did have heavy alcohol abuse about 6 beers daily. FAMILY HISTORY: Mother with history of depression. Father history of colon cancer. ALLERGIES: No known drug allergies. Medications currently include the patient is on Tylenol, DuoNeb, Abilify, Pulmicort, Peridex, Lasix, Neurontin, heparin, Dilaudid, Humalog, Keppra, levofloxacin, Ativan, Solu-Medrol, vancomycin and piperacillin tazobactam, propofol. On examination, blood pressure is 115/76 with a pulse of 84, temperature of 99.4. T-max is 101.7. He is currently afebrile. He is 95% on 100% FiO2. General description is a middle-age male lying in bed in no distress. No tachypnea or accessory muscle of respiration use. HEENT examination shows no pallor or scleral icterus. Patient is orally intubated. NECK: Trachea central. There is no thyromegaly. LUNGS: Unlabored breathing with coarse breath sounds bilaterally. HEART: S1, S2, tachycardic. ABDOMEN: Soft, no tenderness. No guarding or rigidity. EXTREMITIES: No edema of feet. SKIN EXAMINATION: No rash or mass palpable. NEUROLOGICAL: The patient is intubated on the vent, sedated. LABS: Hemoglobin is 13.5, white count 6.5, BUN of 15, creatinine 0.72. Influenza serology has been negative. UA was negative. Blood culture and sputum culture 05/25 and remains to be negative. Chest x-ray with persistent right middle lobe pneumonia. DIAGNOSTIC IMPRESSION AND PLAN: Patient with sepsis. The patient did have fever and tachycardia meeting criteria for systemic inflammatory response syndrome. Source is pneumonia with right middle lung with concern for possible aspiration or a gram-negative pneumonia. Status post bronch in a patient with clinical focus of infection. PLAN: 1. Will await for the bronch cultures to be finalized completed today. 2. Blood cultures x2 will be repeated. 3. Vancomycin, pharmacy to dose, with a target trough of 15, along with the Zosyn will be instituted while waiting for the culture to finalize. 4. Will follow up on the clinical condition and cultures to further adjust the medications if needed. Thank you for this consultation. We will follow this patient along with you. KAMALAD
[2016-05-29] MEDS: LEVOFLOXACIN 750MG-D5W PMX 750 MG in DEXTROSE/WATER 1 150ML.BAG IVPB SCH (10:11)
[2016-05-29] MEDS: VANCOMYCIN 1,250 MG in SODIUM CHLORIDE 0.9% 250 ML IVPB SCH ×2 (10:11→16:39)
[2016-05-29 12:24] LABS: Glucose,Whole Blood 170 mg/dL (75-99)
--- NOTE | 2016-05-29 14:39 | P.PN ---
Subjective 51-year-old being seen in the intensive care unit by the attending today. Patient is being followed by multiple consulting physicians recommendations were noted appreciated and reviewed. Patient continues to be sedated and on vent support the attending did update the sister at the bedside on the plan of care Patients being treated for septic shock with sepsis suspect due to a multilobular pneumonia. Patient does have a history of chronic alcoholism and has had multiple admissions for acute alcohol intoxication Objective - Vital Signs Vital signs: Vital Signs Temp 96.9 F L 05/29/16 12:00 Pulse 81 05/29/16 14:00 Resp 23 05/29/16 14:00 BP 94/63 05/29/16 14:00 Pulse Ox 96 05/29/16 14:00 Intake & Output 05/28/16 05/29/16 05/29/16 18:59 06:59 18:59 Intake Total 2601.138 0204.534 4858.537 Output Total 974 430 460 Balance 8803.441 6825.616 658.537 Weight 84.6 kg 83.7 kg Intake: IV 1136 1233 754 0.9 Pressure Bag 36 133 24 Sodium Chloride 0.9% 1, 1000 1100 730 000 ml @ 100 mls/hr IV . Q10H [facility] Rx#:[id number] Intake, IV Titration 1445.138 620.616 244.537 Amount Levofloxacin 750Mg-D5w 150 Pmx 750 mg In Dextrose/ Water 1 150ml.bag @ 100 mls/hr IVPB Q24H [facility] Rx#: [id number] Norepinephrin 4 mg-0.9% 234.25 184.000 Ns Pmx 4 mg In 250 ml @ Titrate IV .Q0M [facility] Rx#: [id number] Piperacillin-Tazobactam 3 100.0 50 50.0 .375 gm In Dextrose/Water 1 50ml.bag @ 12.5 mls/hr IVPB Q8H [facility] Rx#: [id number] Propofol 500 mg In Empty 81.466 Bag 1 bag @ Titrate IV . Q0M [facility] Rx#:[id number] Propofol 500 mg In Empty 129.422 261.616 194.537 Bag 1 bag @ Titrate IV . Q0M [facility] Rx#:[id number] Sodium Phosphate 10 mmol 250 In Sodium Chloride 0.9% 250 ml @ 125 mls/hr IVPB ONCE ONE Rx#:[id number] Vancomycin 1,500 mg In 500 125 Sodium Chloride 0.9% 250 ml @ 125 mls/hr IVPB Q8HR [facility] Rx#:[id number] Tube Feeding 20 50 120 Output: Gastric Drainage 200 Urine 774 430 460 Other: Voiding Method Indwelling Catheter Indwelling Catheter Indwelling Catheter ABP, PAP, CO, CI - Last Documented Arterial Blood Pressure 135/77 - Exam Physical exam 51-year-old male orally intubated sedated on propofol. Maintained on vent support Lungs anterior diminished at the bases otherwise adequate air movement no wheezing noted Heart S1-S2 audible and regular no murmur monitor sinus heart rate 110 Abdomen flat nontender oral gastric tube in place connected to suction a few hypoactive bowel tones indwelling Magaña catheter in place no stool noted Extremities Venodyne's on to the bilateral lower extremities - Labs CBC & Chem 7: 05/29/16 05:00 05/29/16 05:00 Labs: Abnormal Lab Results - Last 24 Hours (Table) 05/28/16 05/29/16 05/29/16 Range/Units 18:06 01:05 05:00 RBC 3.61 L (4.30-5.90) m/uL Hgb 12.4 L (13.0-17.5) gm/dL Hct 37.8 L (39.0-53.0) % MCV 104.6 H (80.0-100.0) fL Plt Count 94 L (150-450) k/uL Lymphocytes # 0.2 L (1.0-4.8) k/uL ABG pH (7.35-7.45) ABG pCO2 (35-45) mmHg ABG Total CO2 (19-24) mmol/L Sodium (137-145) mmol/L Chloride (98-107) mmol/L BUN (9-20) mg/dL Glucose (74-99) mg/dL POC Glucose (mg/dL) 161 H 133 H (75-99) mg/dL Magnesium (1.6-2.3) mg/dL AST (17-59) U/L Total Protein (6.3-8.2) g/dL Albumin (3.5-5.0) g/dL 05/29/16 05/29/16 05/29/16 Range/Units 05:00 05:09 06:38 RBC (4.30-5.90) m/uL Hgb (13.0-17.5) gm/dL Hct (39.0-53.0) % MCV (80.0-100.0) fL Plt Count (150-450) k/uL Lymphocytes # (1.0-4.8) k/uL ABG pH 7.31 L (7.35-7.45) ABG pCO2 50 H (35-45) mmHg ABG Total CO2 26 H (19-24) mmol/L Sodium 150 H (137-145) mmol/L Chloride 118 H (98-107) mmol/L BUN 22 H (9-20) mg/dL Glucose 141 H (74-99) mg/dL POC Glucose (mg/dL) 127 H (75-99) mg/dL Magnesium 2.7 H (1.6-2.3) mg/dL AST 100 H (17-59) U/L Total Protein 5.4 L (6.3-8.2) g/dL Albumin 2.3 L (3.5-5.0) g/dL 05/29/16 Range/Units 12:23 RBC (4.30-5.90) m/uL Hgb (13.0-17.5) gm/dL Hct (39.0-53.0) % MCV (80.0-100.0) fL Plt Count (150-450) k/uL Lymphocytes # (1.0-4.8) k/uL ABG pH (7.35-7.45) ABG pCO2 (35-45) mmHg ABG Total CO2 (19-24) mmol/L Sodium (137-145) mmol/L Chloride (98-107) mmol/L BUN (9-20) mg/dL Glucose (74-99) mg/dL POC Glucose (mg/dL) 170 H (75-99) mg/dL Magnesium (1.6-2.3) mg/dL AST (17-59) U/L Total Protein (6.3-8.2) g/dL Albumin (3.5-5.0) g/dL Microbiology - Last 24 Hours (Table) 05/28/16 11:30 Gram Stain - Preliminary Bronchial Washings - Right Bronchial Washings Culture - Preliminary 05/26/16 01:11 Blood Culture - Preliminary Blood No Growth after 72 hours 05/28/16 14:10 Urine Culture - Preliminary Urine,Catheterized 05/28/16 11:30 Fungal Culture - Preliminary Bronchial Washings - Right 05/26/16 02:40 Gram Stain - Final Sputum Sputum Culture - Final Assessment and Plan Plan: Impression Present on admission fever elevated lactic acid sepsis with septic shock suspect due to multilobular pneumonia Chronic alcoholism Current every day smoker greater than a 20 year history Anxiety depressive disorder nonspecified Multiple admissions for acute alcohol intoxication with impending DTs Acute exacerbation of COPD Present on admission hyponatremia sodium 126 Acute hypoxic respiratory failure necessitating intubation with vent support Elevated liver enzymes Episode of hypotension systolic blood pressure in the 50s placed on IV levophed necessitating a transfer to the intensive care unit Episode of acute metabolic encephalopathy suspect due to acute hypoxic respiratory distress necessitating transfer to the ICU subsequently intubated and sedated suspect due to sepsis with septic shock due to multilobular pneumonia CT of the brain shows left subdural hygroma 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 Shankared recommendations antibiotics Repeat labs in the morning The above dictated assessment and findings were discussed with dr guan . Impression and the plan of care have been dictated as directed. Traci Roe nurse practitioner acting as a scribe for dr guan
--- NOTE | 2016-05-29 17:33 | P.PN ---
Subjective This is a 51-year-old male who is being evaluated and examined today in the intensive care unit. Patient originally came into the emergency room with increased shortness of breath and some confusion. This patient has known to have multiple readmissions with alcoholism and alcohol withdrawals. Patient was noted to have a fever of 101 on admission he was started on broad-spectrum antibiotics, updrafts, and steroids. Patient's lactic acid level was 2.7, Patient was also noted to have an elevated d-dimer however CTA was performed and showed a trilobar pneumonia, congestive heart failure, pulmonary embolism could not be excluded. Patient was originally admitted to medical surgical floor and had some increase in confusion and some respiratory distress therefore he was transferred up to the ICU. Subsequently the patient was intubated and has propofol for sedation. Upon examination the patient is asynchronous with mechanical ventilation, patient getting dilaudid and ativan as well as propofol. Ventilator settings on assist mode respiratory rate of 16 volume 500 FiO2 100% and PEEP of 15. The patient is requiring is off levophed. The patient did have a some decrease in oxygen saturations overnight requiring the patient to be be pronated, he tolerated this and oxygen sats imrpoved for 4 hours. He then was put back on his back after 4 hours for desaurations again and responded quickly and sats came back up. Although again at about 4 am he then required to be pronated again. The repositioning shows to be effective in treating his oxygen desaturations. The patients is hypernatremic , and will require free water flushes. Objective - Vital Signs Vital signs: Vital Signs Temp 97 F L 05/29/16 16:00 Pulse 64 05/29/16 17:00 Resp 22 05/29/16 17:00 BP 95/59 05/29/16 17:00 Pulse Ox 89 L 05/29/16 17:00 Intake & Output 05/28/16 05/29/16 05/29/16 18:59 06:59 18:59 Intake Total 2601.138 3106.205 2331.537 Output Total 974 430 580 Balance 7344.228 8339.616 997.537 Weight 84.6 kg 83.7 kg Intake: IV 1136 1233 923 0.9 Pressure Bag 36 133 33 Sodium Chloride 0.9% 1, 1000 1100 890 000 ml @ 100 mls/hr IV . Q10H [facility] Rx#:[id number] Intake, IV Titration 1445.138 620.616 444.537 Amount Levofloxacin 750Mg-D5w 150 Pmx 750 mg In Dextrose/ Water 1 150ml.bag @ 100 mls/hr IVPB Q24H [facility] Rx#: [id number] Norepinephrin 4 mg-0.9% 234.25 184.000 Ns Pmx 4 mg In 250 ml @ Titrate IV .Q0M [facility] Rx#: [id number] Piperacillin-Tazobactam 3 100.0 50 75.0 .375 gm In Dextrose/Water 1 50ml.bag @ 12.5 mls/hr IVPB Q8H [facility] Rx#: [id number] Propofol 500 mg In Empty 81.466 Bag 1 bag @ Titrate IV . Q0M [facility] Rx#:[id number] Propofol 500 mg In Empty 129.422 261.616 244.537 Bag 1 bag @ Titrate IV . Q0M [facility] Rx#:[id number] Sodium Phosphate 10 mmol 250 In Sodium Chloride 0.9% 250 ml @ 125 mls/hr IVPB ONCE ONE Rx#:[id number] Vancomycin 1,250 mg In 125 Sodium Chloride 0.9% 250 ml @ 125 mls/hr IVPB Q8HR @0100,0900,1700 [facility] Rx#: [id number] Vancomycin 1,500 mg In 500 125 Sodium Chloride 0.9% 250 ml @ 125 mls/hr IVPB Q8HR [facility] Rx#:[id number] Tube Feeding 20 50 150 Other 60 Output: Gastric Drainage 200 Urine 774 430 580 Other: Voiding Method Indwelling Catheter Indwelling Catheter Indwelling Catheter ABP, PAP, CO, CI - Last Documented Arterial Blood Pressure 115/61 - Exam GENERAL EXAM: On mechanical ventilation with propofol for sedation HEAD: Normocephalic. EYES: Normal reaction of pupils, equal size. NOSE: Clear with pink turbinates. THROAT: No erythema or exudates. NECK: No masses, no JVD. CHEST: No chest wall deformity. LUNGS: On mechanical ventilation, has scattered rhonchi and wheezes throughout. CVS: S1 and S2 normal with no audible mumurs, regular rhythm. ABDOMEN: No hepatosplenomegaly, normal bowel sounds, no guarding or rigidity. EXTREMITIES: No edema noted, pedal pulses palpable. SKIN: No rashes CENTRAL NERVOUS SYSTEM: Currently on sedation - Labs CBC & Chem 7: 05/29/16 05:00 05/29/16 05:00 Labs: Abnormal Lab Results - Last 24 Hours (Table) 05/28/16 05/28/16 05/29/16 Range/Units 11:30 18:06 01:05 RBC (4.30-5.90) m/uL Hgb (13.0-17.5) gm/dL Hct (39.0-53.0) % MCV (80.0-100.0) fL Plt Count (150-450) k/uL Lymphocytes # (1.0-4.8) k/uL ABG pH (7.35-7.45) ABG pCO2 (35-45) mmHg ABG Total CO2 (19-24) mmol/L Sodium (137-145) mmol/L Chloride (98-107) mmol/L BUN (9-20) mg/dL Glucose (74-99) mg/dL POC Glucose (mg/dL) 161 H 133 H (75-99) mg/dL Magnesium (1.6-2.3) mg/dL AST (17-59) U/L Total Protein (6.3-8.2) g/dL Albumin (3.5-5.0) g/dL Viral Test See Below H 05/29/16 05/29/16 05/29/16 Range/Units 05:00 05:00 05:09 RBC 3.61 L (4.30-5.90) m/uL Hgb 12.4 L (13.0-17.5) gm/dL Hct 37.8 L (39.0-53.0) % MCV 104.6 H (80.0-100.0) fL Plt Count 94 L (150-450) k/uL Lymphocytes # 0.2 L (1.0-4.8) k/uL ABG pH 7.31 L (7.35-7.45) ABG pCO2 50 H (35-45) mmHg ABG Total CO2 26 H (19-24) mmol/L Sodium 150 H (137-145) mmol/L Chloride 118 H (98-107) mmol/L BUN 22 H (9-20) mg/dL Glucose 141 H (74-99) mg/dL POC Glucose (mg/dL) (75-99) mg/dL Magnesium 2.7 H (1.6-2.3) mg/dL AST 100 H (17-59) U/L Total Protein 5.4 L (6.3-8.2) g/dL Albumin 2.3 L (3.5-5.0) g/dL Viral Test 05/29/16 05/29/16 Range/Units 06:38 12:23 RBC (4.30-5.90) m/uL Hgb (13.0-17.5) gm/dL Hct (39.0-53.0) % MCV (80.0-100.0) fL Plt Count (150-450) k/uL Lymphocytes # (1.0-4.8) k/uL ABG pH (7.35-7.45) ABG pCO2 (35-45) mmHg ABG Total CO2 (19-24) mmol/L Sodium (137-145) mmol/L Chloride (98-107) mmol/L BUN (9-20) mg/dL Glucose (74-99) mg/dL POC Glucose (mg/dL) 127 H 170 H (75-99) mg/dL Magnesium (1.6-2.3) mg/dL AST (17-59) U/L Total Protein (6.3-8.2) g/dL Albumin (3.5-5.0) g/dL Viral Test Microbiology - Last 24 Hours (Table) 05/28/16 15:14 Blood Culture - Preliminary Blood No Growth after 24 hours 05/28/16 15:03 Blood Culture - Preliminary Blood No Growth after 24 hours 05/28/16 11:30 Gram Stain - Preliminary Bronchial Washings - Right Bronchial Washings Culture - Preliminary 05/26/16 01:11 Blood Culture - Preliminary Blood No Growth after 72 hours 05/28/16 14:10 Urine Culture - Preliminary Urine,Catheterized 05/28/16 11:30 Fungal Culture - Preliminary Bronchial Washings - Right Assessment and Plan Plan: Assessment Trilobar pneumonia with sepsis Acute hypoxic respiratory failure Hypotension Hyponatremia Elevated liver enzymes Alcoholism with alcohol withdrawal Acute exacerbation of chronic obstructive pulmonary disease Mental status changes Plan Medications have been reviewed and will be continued as ordered. The patient will remain on mechanical ventilation until appropriate to wean. Patient currently on Dilaudid and Ativan for being asynchronous with the vent. Continue on Budesonide and DuoNeb. We will increase the patients resp rate to 20. May reposition the patient to pronate when necessary for desaturations. Tube fed to be held with pronated. Free water flushes 250ml every 6 hours. Patient currently on Zosyn and Levaquin for antibiotic coverage. Tube feds for nutrition. Continue with steroids. Neurology on consult. We will continue to monitor labs/results and adjust treatment as necessary. I performed an examination of the patient and discussed their management with the nurse practitioner. I have reviewed the nurse practitioner's note and agree with the documented findings and plan of care.
--- NOTE | 2016-05-29 17:59 | PN ---
DATE OF SERVICE: 05/29/2016 REASON FOR FOLLOWUP: Sepsis and pneumonia. INTERVAL HISTORY: The patient is afebrile. He is hemodynamically stable; however, he is still requiring 100% FiO2 with borderline oxygenation. when he was flipped over yesterday for ventilation patient was noticed to have a blister on his back with drainage of some purulent material. Unfortunately it was not cultured. The patient currently is sedated on the vent. On examination, blood pressure is 135/77 with a pulse of 81, temperature 98. He is 96% on 100% FiO2. General description is a middle-aged male intubated on the vent. RESPIRATORY SYSTEM: Unlabored breathing. Coarse breath sounds and wheezes bilaterally. HEART: S1, S2. Regular rate and rhythm. ABDOMEN: Soft. No tenderness. LABS: Hemoglobin is 12.4, white count 6.0. BUN of 22, creatinine 0.70. Chest x-ray on 05/29 shows large concentration, right middle lung pneumonia. DIAGNOSTIC IMPRESSION AND PLAN: Patient with sepsis. Source is pneumonia, right middle lung, status post bronchoscopy. Initial culture has been negative for any resistant pathogen. Waiting for the bronchoscopy culture to finalize. Continue the patient on current broad-spectrum antibiotic. Continue with supportive care. MTDD
[2016-05-29 18:20] LABS: Glucose,Whole Blood 108 mg/dL (75-99)
--- NOTE | 2016-05-29 21:28 | P.PN ---
Subjective Principal diagnosis: 1. seizure 2. encephalopathy Patient is a 51-year-old male being followed by neurology for seizures. Patient has a history of COPD. Brought to the emergency room with complaints of shortness of breath. D-dimer was elevated and a CT scan the chest showed evidence of multilobe pneumonia. Patient was febrile on admission. Patient's respiratory status worsened and had to be intubated and sedated. Patient does have a history of seizure disorder although it is unclear if it is epileptic or recurrent due to alcohol withdrawal seizures. Home medications indicate the patient is on Keppra 1000 mg twice a day, low- dose Lyrica and Neurontin at home. Nursing staff reports that he has not had any seizure-like activity since his admission. On contact, the patient is intubated and sedated in the intensive care unit. Patient is on IV antibiotics. 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 Generalized atrophy noted. CMP noted hepatic insufficiency with elevated AST and ALT. Patient also has mild hypocalcemia. CBC noted thrombocytopenia. UA and noted moderate blood and urine drug screen was positive for benzodiazepines. Patient appears visually to have declined since yesterday. Objective - Vital Signs Vital signs: Vital Signs Temp 97.0 F L 05/29/16 20:00 Pulse 70 05/29/16 20:00 Resp 20 05/29/16 20:00 BP 91/58 05/29/16 20:00 Pulse Ox 90 L 05/29/16 20:00 Intake & Output 05/29/16 05/29/16 05/30/16 06:59 18:59 06:59 Intake Total 0437.652 9641.537 368.904 Output Total 430 615 70 Balance 2044.498 0440.537 298.904 Weight 83.7 kg Intake: IV 1233 926 206 0.9 Pressure Bag 133 36 6 Sodium Chloride 0.9% 1, 1100 890 200 000 ml @ 100 mls/hr IV . Q10H [facility] Rx#:[id number] Intake, IV Titration 620.616 619.537 82.904 Amount Norepinephrin 4 mg-0.9% 184.000 Ns Pmx 4 mg In 250 ml @ Titrate IV .Q0M [facility] Rx#: [id number] Piperacillin-Tazobactam 3 50 75.0 .375 gm In Dextrose/Water 1 50ml.bag @ 12.5 mls/hr IVPB Q8H [facility] Rx#: [id number] Propofol 500 mg In Empty 261.616 294.537 82.904 Bag 1 bag @ Titrate IV . Q0M [facility] Rx#:[id number] Vancomycin 1,250 mg In 250 Sodium Chloride 0.9% 250 ml @ 125 mls/hr IVPB Q8HR @0100,0900,1700 [facility] Rx#: [id number] Vancomycin 1,500 mg In 125 Sodium Chloride 0.9% 250 ml @ 125 mls/hr IVPB Q8HR [facility] Rx#:[id number] Tube Feeding 50 330 80 Other 340 Output: Urine 430 615 70 Other: Voiding Method Indwelling Catheter Indwelling Catheter ABP, PAP, CO, CI - Last Documented Arterial Blood Pressure 121/64 - Exam Constitutional: in the ICU, sedated on ventilator. HEENT: NC/AT, Supple, no masses, no facial asymmetry noted on exam. ET tube is intact. Respiratory: patient on ventilator Cardiac: Regular rate and Rhythm GI: non tender, non distended Musculoskeletal: [employer] Helper strengths are equal bilaterally 0/5, Lower extremity strengths are equal bilaterally at 0/5. Neurological: intubated and sedated. No obvious facial asymmetry seen. Plantar reflex showed silent toes bilaterally. No tremors or seizure-like activity is seen. Pupils equally round and fixed. Integementary: no rash, no erythema Psychiatric: absent mood or affect - Constitutional Constitutional Comment(s): all systems unless noted in HPI are negative - Labs CBC & Chem 7: 05/29/16 05:00 05/29/16 05:00 Labs: Abnormal Lab Results - Last 24 Hours (Table) 05/28/16 05/29/16 05/29/16 Range/Units 11:30 01:05 05:00 RBC 3.61 L (4.30-5.90) m/uL Hgb 12.4 L (13.0-17.5) gm/dL Hct 37.8 L (39.0-53.0) % MCV 104.6 H (80.0-100.0) fL Plt Count 94 L (150-450) k/uL Lymphocytes # 0.2 L (1.0-4.8) k/uL ABG pH (7.35-7.45) ABG pCO2 (35-45) mmHg ABG Total CO2 (19-24) mmol/L Sodium (137-145) mmol/L Chloride (98-107) mmol/L BUN (9-20) mg/dL Glucose (74-99) mg/dL POC Glucose (mg/dL) 133 H (75-99) mg/dL Magnesium (1.6-2.3) mg/dL AST (17-59) U/L Total Protein (6.3-8.2) g/dL Albumin (3.5-5.0) g/dL Viral Test See Below H 05/29/16 05/29/16 05/29/16 Range/Units 05:00 05:09 06:38 RBC (4.30-5.90) m/uL Hgb (13.0-17.5) gm/dL Hct (39.0-53.0) % MCV (80.0-100.0) fL Plt Count (150-450) k/uL Lymphocytes # (1.0-4.8) k/uL ABG pH 7.31 L (7.35-7.45) ABG pCO2 50 H (35-45) mmHg ABG Total CO2 26 H (19-24) mmol/L Sodium 150 H (137-145) mmol/L Chloride 118 H (98-107) mmol/L BUN 22 H (9-20) mg/dL Glucose 141 H (74-99) mg/dL POC Glucose (mg/dL) 127 H (75-99) mg/dL Magnesium 2.7 H (1.6-2.3) mg/dL AST 100 H (17-59) U/L Total Protein 5.4 L (6.3-8.2) g/dL Albumin 2.3 L (3.5-5.0) g/dL Viral Test 05/29/16 05/29/16 Range/Units 12:23 18:20 RBC (4.30-5.90) m/uL Hgb (13.0-17.5) gm/dL Hct (39.0-53.0) % MCV (80.0-100.0) fL Plt Count (150-450) k/uL Lymphocytes # (1.0-4.8) k/uL ABG pH (7.35-7.45) ABG pCO2 (35-45) mmHg ABG Total CO2 (19-24) mmol/L Sodium (137-145) mmol/L Chloride (98-107) mmol/L BUN (9-20) mg/dL Glucose (74-99) mg/dL POC Glucose (mg/dL) 170 H 108 H (75-99) mg/dL Magnesium (1.6-2.3) mg/dL AST (17-59) U/L Total Protein (6.3-8.2) g/dL Albumin (3.5-5.0) g/dL Viral Test Microbiology - Last 24 Hours (Table) 05/28/16 15:14 Blood Culture - Preliminary Blood No Growth after 24 hours 05/28/16 15:03 Blood Culture - Preliminary Blood No Growth after 24 hours 05/28/16 11:30 Gram Stain - Preliminary Bronchial Washings - Right Bronchial Washings Culture - Preliminary 05/26/16 01:11 Blood Culture - Preliminary Blood No Growth after 72 hours 05/28/16 14:10 Urine Culture - Preliminary Urine,Catheterized Assessment and Plan (1) COPD (chronic obstructive pulmonary disease) Status: Acute (2) Pneumonia Status: Acute (3) Alcohol dependence Status: Acute (4) Seizures Status: Acute (5) Encephalopathy acute Status: Acute (6) Alcohol withdrawal seizure Status: Acute Plan: Patient has not had any seizure-like activity since his admission. Etiology of seizures is unclear at this time, possibly related to EtOH withdrawal. Patient to maintain Keppra 1000 mg twice a day. Continue seizure precautions and neurological checks. It is noted that the patient had to be pronated to maintain oxygen saturation 1-2 times today. Occupational therapy and physical therapy have been consulted. EEG noted mild to moderate encephalopathy. Keppra level pending. Status: Neurology will continue to follow, status poor, recommend discussion with family regarding plan of care. We will continue to provide updates as needed or warranted. Feel free to contact our office with any questions or concerns. I discussed the patient's pertinent medical information with Dr. Contreras. He agrees with the plan of care as implemented.
[2016-05-30] MEDS: HYDROmorphone 2 MG/ML 1 ML SYRINGE IVP PRN ×7 (00:01→23:28)
[2016-05-30 00:06] LABS: Glucose,Whole Blood 179 mg/dL (75-99)
[2016-05-30] MEDS: methylPREDNISolone SOD SUCCI 125 MG/2 ML VIAL IV SCH ×3 (00:09→16:17)
[2016-05-30] MEDS: INSULIN LISPRO (humaLOG) 300 UNIT/3 ML VIAL SQ SCH ×4 (00:09→17:49)
[2016-05-30] MEDS: HEPARIN SODIUM,PORCINE 5,000 UNIT/ML 1 ML VIAL SQ SCH ×3 (00:09→16:17)
[2016-05-30] MEDS: VANCOMYCIN 1,250 MG in SODIUM CHLORIDE 0.9% 250 ML IVPB SCH ×3 (00:14→17:51)
[2016-05-30] MEDS: PROPOFOL 500 MG in EMPTY BAG 1 BAG IV SCH ×13 (01:13→23:29)
[2016-05-30] MEDS: SODIUM CHLORIDE 0.9% 1,000 ML IV SCH ×2 (04:33→11:12)
[2016-05-30 05:26] LABS: ABG Base Excess -2.1 mmol/L; ABG HCO3 24 mmol/L (21-25); ABG PCO2 56 mmHg (35-45); ABG PH 7.26 (7.35-7.45); ABG PO2 93 mmHg (83-108); ABG TCO2 26 mmol/L (19-24)
[2016-05-30 05:32] LABS: Basophils % (A) 1 %; CH 33.4; CHCM 31.9; Eosinophils % (A) 0 %; HCT 34.9 % (39.0-53.0); HDW 3.23; HGB 11.7 gm/dL (13.0-17.5); Hypochromasia Slight; Luc # (Auto) 0.12; Luc % (Auto) 2; Lymphocytes # (A) 0.3 k/uL (1.0-4.8); Lymphocytes % (A) 5 %; MCH 35.4 pg (25.0-35.0); MCHC 33.6 g/dL (31.0-37.0); MCV 105.5 fL (80.0-100.0); Macrocytosis Moderate; Mean Platelet Volume 8.8; Monocytes # (A) 0.1 k/uL (0-1.0); Monocytes % (A) 2 %; Neutrophils # (A) 4.7 k/uL (1.3-7.7); Neutrophils % (A) 90 %; RBC 3.31 m/uL (4.30-5.90); WBC 5.2 k/uL (3.8-10.6); WBC (Perox) 5.36
[2016-05-30] MEDS: PIPERACILLIN-TAZOBACTAM 3.375 GM in DEXTROSE/WATER 1 50ML.BAG IVPB SCH ×3 (05:46→22:19)
[2016-05-30 05:52] LABS: Glucose,Whole Blood 123 mg/dL (75-99)
[2016-05-30 05:55] LABS: Anion Gap 4 mmol/L; Blood Urea Nitrogen 29 mg/dL (9-20); Calcium 8.7 mg/dL (8.4-10.2); Carbon Dioxide 28 mmol/L (22-30); Chloride 118 mmol/L (98-107); Glucose 127 mg/dL (74-99); Magnesium 2.8 mg/dL (1.6-2.3); Non-African American GFR(MDRD) >60 (>60 ml/min/1.73 sqM); Phosphorous 3.3 mg/dL (2.5-4.5); Potassium 3.8 mmol/L (3.5-5.1); Sodium 150 mmol/L (137-145)
[2016-05-30 07:01] VITALS: BP 113/71
--- NOTE | 2016-05-30 07:53 | XR ---
EXAMINATION TYPE: XR chest 1V portable DATE OF EXAM: 05/30/2016 6:33 AM Comparison: 05/29/2016 Clinical History: 51 year-old male tube placement Findings: ET tube satisfactory. NG tube is pulled back in the interval with sidehole located 2.9 cm above the G E junction. Right IJ CVC tip at the lower SVC. Heart is normal size. Aorta and pulmonary vasculature within normal limits. Continued dense consolida tion within the right midlung and patchy infiltrate within the left lower lung. Some additional lesse r degree of infiltrates are present throughout the right lung. Overall appearance is unchanged. Impression: 1. The NG tube has been pulled back slightly in the interval. The sidehole is 2.9 cm above the [employer] ction. Consider further advancement into the stomach. 2. Continued multifocal consolidation, most dense in the right midlung without significant interval c hange. Correlate for multifocal pneumonia.
[2016-05-30] MEDS: CHLORHEXIDINE GLUCONATE 15 ML CUP MUCOUS MEM SCH ×2 (08:16→20:11)
[2016-05-30] MEDS: ARIPiprazole 2 MG TAB PO SCH (08:16)
[2016-05-30] MEDS: FUROSEMIDE 10 MG/ML 4 ML VIAL IV SCH (08:16)
[2016-05-30] MEDS: GABAPENTIN 100 MG CAP PO SCH ×2 (08:16→20:11)
[2016-05-30] MEDS: PARoxetine 20 MG TAB PO SCH (08:17)
[2016-05-30] MEDS: levETIRAcetam 500 MG TAB PO SCH ×2 (08:17→20:11)
[2016-05-30] MEDS: MULTIVITAMINS, THERA 1 EACH TAB PO SCH (08:17)
[2016-05-30] MEDS: PANTOPRAZOLE 40 MG/10 ML VIAL IV SCH (08:17)
--- NOTE | 2016-05-30 09:25 | P.PN ---
Subjective 51-year-old male being seen in the intensive care unit with the attending this morning remains sedated on vent support PEEP is up to 20. Nursing reports the patient continues to desat. The event is being managed by pulmonary service. Patient's been off the Levophed for the last 24 hours currently blood pressure is 113/71 heart rates in the 70s afebrile patients being followed by multiple consulting physicians recommendations reviewed noted and appreciated Objective - Vital Signs Vital signs: Vital Signs Temp 98.5 F 05/30/16 08:00 Pulse 74 05/30/16 08:00 Resp 26 H 05/30/16 08:00 BP 113/71 05/30/16 08:00 Pulse Ox 81 L 05/30/16 08:00 Intake & Output 05/29/16 05/30/16 05/30/16 18:59 06:59 18:59 Intake Total 2215.537 1748.923 842.781 Output Total 615 630 125 Balance 8516.516 7335.923 717.781 Weight 84.2 kg Intake: IV 926 1136 206 0.9 Pressure Bag 36 36 6 Sodium Chloride 0.9% 1, 890 1100 200 000 ml @ 100 mls/hr IV . Q10H [facility] Rx#:[id number] Intake, IV Titration 619.537 412.923 296.781 Amount Piperacillin-Tazobactam 3 75.0 .375 gm In Dextrose/Water 1 50ml.bag @ 12.5 mls/hr IVPB Q8H [facility] Rx#: [id number] Propofol 500 mg In Empty 294.537 412.923 46.781 Bag 1 bag @ Titrate IV . Q0M [facility] Rx#:[id number] Vancomycin 1,250 mg In 250 250 Sodium Chloride 0.9% 250 ml @ 125 mls/hr IVPB Q8HR @0100,0900,1700 [facility] Rx#: [id number] Tube Feeding 330 200 90 Other 340 250 Output: Urine 615 630 125 Other: Voiding Method Indwelling Catheter Indwelling Catheter ABP, PAP, CO, CI - Last Documented Arterial Blood Pressure 137/59 - Exam Physical exam 51-year-old male orally intubated sedated on propofol. Maintained on vent support Lungs anterior diminished at the bases otherwise adequate air movement no wheezing noted PEEP of 20 sats currently this morning fluctuating low 80s Heart S1-S2 audible and regular no murmur monitor sinus rate in the 80s Abdomen flat nontender oral gastric tube in place connected to suction a few hypoactive bowel tones indwelling Magaña catheter in place no stool noted Extremities Venodyne's on to the bilateral lower extremities puffiness noted to the bilateral hands - Labs CBC & Chem 7: 05/30/16 05:25 05/30/16 05:25 Labs: Abnormal Lab Results - Last 24 Hours (Table) 05/28/16 05/29/16 05/29/16 Range/Units 11:30 12:23 18:20 RBC (4.30-5.90) m/uL Hgb (13.0-17.5) gm/dL Hct (39.0-53.0) % MCV (80.0-100.0) fL MCH (25.0-35.0) pg Plt Count (150-450) k/uL Lymphocytes # (1.0-4.8) k/uL ABG pH (7.35-7.45) ABG pCO2 (35-45) mmHg ABG Total CO2 (19-24) mmol/L Sodium (137-145) mmol/L Chloride (98-107) mmol/L BUN (9-20) mg/dL Glucose (74-99) mg/dL POC Glucose (mg/dL) 170 H 108 H (75-99) mg/dL Magnesium (1.6-2.3) mg/dL Viral Test See Below H 05/30/16 05/30/16 05/30/16 Range/Units 00:03 04:47 05:25 RBC 3.31 L (4.30-5.90) m/uL Hgb 11.7 L (13.0-17.5) gm/dL Hct 34.9 L (39.0-53.0) % MCV 105.5 H (80.0-100.0) fL MCH 35.4 H (25.0-35.0) pg Plt Count 102 L (150-450) k/uL Lymphocytes # 0.3 L (1.0-4.8) k/uL ABG pH 7.26 L (7.35-7.45) ABG pCO2 56 H (35-45) mmHg ABG Total CO2 26 H (19-24) mmol/L Sodium (137-145) mmol/L Chloride (98-107) mmol/L BUN (9-20) mg/dL Glucose (74-99) mg/dL POC Glucose (mg/dL) 179 H (75-99) mg/dL Magnesium (1.6-2.3) mg/dL Viral Test 05/30/16 05/30/16 Range/Units 05:25 05:50 RBC (4.30-5.90) m/uL Hgb (13.0-17.5) gm/dL Hct (39.0-53.0) % MCV (80.0-100.0) fL MCH (25.0-35.0) pg Plt Count (150-450) k/uL Lymphocytes # (1.0-4.8) k/uL ABG pH (7.35-7.45) ABG pCO2 (35-45) mmHg ABG Total CO2 (19-24) mmol/L Sodium 150 H (137-145) mmol/L Chloride 118 H (98-107) mmol/L BUN 29 H (9-20) mg/dL Glucose 127 H (74-99) mg/dL POC Glucose (mg/dL) 123 H (75-99) mg/dL Magnesium 2.8 H (1.6-2.3) mg/dL Viral Test Microbiology - Last 24 Hours (Table) 05/29/16 17:15 Gram Stain - Preliminary Back Wound Culture - Preliminary 05/26/16 01:11 Blood Culture - Preliminary Blood No Growth after 96 hours 05/28/16 14:10 Urine Culture - Final Urine,Catheterized 05/28/16 15:14 Blood Culture - Preliminary Blood No Growth after 24 hours 05/28/16 15:03 Blood Culture - Preliminary Blood No Growth after 24 hours 05/28/16 11:30 Gram Stain - Preliminary Bronchial Washings - Right Bronchial Washings Culture - Preliminary Assessment and Plan Plan: Impression Present on admission fever elevated lactic acid sepsis with septic shock suspect due to multilobular pneumonia Chronic alcoholism Current every day smoker greater than a 20 year history Anxiety depressive disorder nonspecified Multiple admissions for acute alcohol intoxication with impending DTs Acute exacerbation of COPD Present on admission hyponatremia sodium 126 Acute hypoxic respiratory failure necessitating intubation with vent support Elevated liver enzymes Episode of hypotension systolic blood pressure in the 50s placed on IV levophed necessitating a transfer to the intensive care unit Episode of acute metabolic encephalopathy suspect due to acute hypoxic respiratory distress necessitating transfer to the ICU subsequently intubated and sedated suspect due to sepsis with septic shock due to multilobular pneumonia CT of the brain shows left subdural hygroma 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 Shankared recommendations antibiotics Repeat labs in the morning The above dictated assessment and findings were discussed with dr guan . Impression and the plan of care have been dictated as directed. Traci Roe nurse practitioner acting as a scribe for dr guan
[2016-05-30] MEDS: IPRATROPIUM-ALBUTEROL 3 ML NEB INHALATION SCH ×3 (09:31→19:16)
[2016-05-30] MEDS: BUDESONIDE 1 MG/2 ML NEBU INHALATION SCH ×2 (09:31→19:16)
[2016-05-30 10:34] VITALS: BMI 28.2
[2016-05-30] MEDS: LEVOFLOXACIN 750MG-D5W PMX 750 MG in DEXTROSE/WATER 1 150ML.BAG IVPB SCH (11:12)
[2016-05-30 12:15] LABS: Glucose,Whole Blood 136 mg/dL (75-99)
[2016-05-30] MEDS: PREGABALIN 75 MG CAP PO SCH ×2 (12:18→20:13)
[2016-05-30] MEDS ORDERED: CISATRACURIUM 2 MG/ML 5 ML VIAL IV ONE (15:43)
[2016-05-30] MEDS: SODIUM CHLORIDE 0.45% 1,000 ML IV SCH (15:53)
[2016-05-30] MEDS: CISATRACURIUM 200 MG in SODIUM CHLORIDE 0.9% 180 ML IV SCH (16:17)
[2016-05-30 17:13] LABS: Glucose,Whole Blood 124 mg/dL (75-99)
--- NOTE | 2016-05-30 17:57 | PN ---
CRITICAL CARE TIME SPENT: 60 minutes. Mr. Alvarado Manriquez is a 51-year-old male who was seen, evaluated, examined in the ICU. Care plan discussed with the staff, respiratory therapist and the sister, who is next of kin, at length. Patient continued to desaturate with low oxygen saturation. Patient had been responding to prone positioning, but not working very well at this point in time. Patient remains on propofol drip 75 mcg. He is off of the Levophed drip, though. Patient continued to have pattern of double inspiratory efforts. I have attempted to change the inspiratory flow without any significant relief. Patient's peak airway pressures into high 30s. Patient's PEEP has been escalated to 20 cm of water. Hemodynamic status overall is stable. His oxygenation, however, remains an issue. Another finding that has been noted, a small abscess on the back was noted which drained by itself and right now no significant discharge or pus has been noted. Pus already has been sent for Gram stain and culture. The size of the abscess was about 2 less than 2 cm and was very superficial. A chest x-ray from today reviewed continued to have a dense infiltrate in the right mid lung field and right upper lobe area with patchy infiltrate in the left lower lobe. Overall not much change. ET tube is stable in the. OG tube was above the gastric inlet, has been advanced already. Patient has triple-lumen catheter in the right side with a right radial artery line which has been stable. His laboratory data reviewed. White cell 5200, hemoglobin and hematocrit of 11 and 34, platelet count 102,000. Arterial blood gas revealed a pH 7.26, Pa 56, pO2 of 100%. Sodium is up to 150, potassium 3.8, BUN and creatinine 29 and 0.7 as well. His culture results report is reviewed. No growth has been noted so far, including urine, blood and sputum and the culture from the small abscess in the back has been pending. Patient remains on vancomycin and Zosyn. IMPRESSION: 1. Acute hypoxic respiratory failure. 2. Acute respiratory distress/ARDS syndrome related to above. 3. Hypernatremia. 4. History of alcohol consumption and history of seizures. 5. Persistent hypoxemia with compliance-related problems or issues. I have discussed with the sister at length. They requested and planned PATIENT TO BE MADE NO CODE; HOWEVER, CONTINUE SUPPORTIVE CARE. Given that patient is very obese, saturation on assist control mode, where sats dropped down into low 80s would have changed it to pressure control ventilation. With adjustment, it appears that patient does well with 20 of PEEP and inspiratory pressure of 15. Rate has been set around 18 to 20. Will adjust accordingly as well. With that, tidal volume has been in high 600 range. Occasional spiking is present. Nimbex drip is being started. Will continue antibiotics. Continue tube feed. Free water is being initiated for hypernatremia and will change to half-normal saline as well. Prognosis overall is very poor. Continue supportive care. Re-assess this patient with the family in next 24 hours. Of note that the sister expressed patient does not want to be a long-term ventilator support. Will follow.
[2016-05-30] MEDS: MONTELUKAST 10 MG TAB PO SCH (20:11)
[2016-05-30] MEDS: TETRAHYDROZOLINE 0.05% OPHTH DROPS 15 ML BTL BOTH EYES PRN (20:11)
[2016-05-30 20:26] LABS: ABG PCO2 78 mmHg (35-45); ABG PH 7.14 (7.35-7.45); ABG PO2 78 mmHg (83-108)
[2016-05-30 20:27] LABS: ABG Base Excess -2.5 mmol/L; ABG HCO3 26 mmol/L (21-25); ABG TCO2 28 mmol/L (19-24)
[2016-05-30] MEDS: LORazepam 2 MG/ML SYRINGE IV PRN ×2 (20:48→23:29)
[2016-05-30] MEDS ORDERED: NOREPINEPHRIN 16 MG-0.9%NS PMX 16 MG/250 ML ML IV SCH (21:45)
--- NOTE | 2016-05-30 22:37 | P.PN ---
Subjective Principal diagnosis: 1. seizure 2. encephalopathy Patient is a 51-year-old male being followed by neurology for seizures. Patient has a history of COPD. Brought to the emergency room with complaints of shortness of breath. D-dimer was elevated and a CT scan the chest showed evidence of multilobe pneumonia. Patient was febrile on admission. Patient's respiratory status worsened and had to be intubated and sedated. Patient does have a history of seizure disorder although it is unclear if it is epileptic or recurrent due to alcohol withdrawal seizures. Home medications indicate the patient is on Keppra 1000 mg twice a day, low- dose Lyrica and Neurontin at home. Nursing staff reports that he has not had any seizure-like activity since his admission. Nursing reports the patient to set up multiple times in the last 24 hours and had to be pronated. On contact, the patient is intubated and sedated in the intensive care unit. Patient is on IV antibiotics. 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 Generalized atrophy noted. CMP noted hepatic insufficiency with elevated AST and ALT. Patient also has mild hypocalcemia. CBC noted thrombocytopenia. UA and noted moderate blood and urine drug screen was positive for benzodiazepines. Patient appears visually to have declined since yesterday. Objective - Vital Signs Vital signs: Vital Signs Temp 97.5 F L 05/30/16 16:00 Pulse 125 H 05/30/16 19:50 Resp 21 05/30/16 19:00 BP 113/71 05/30/16 08:00 Pulse Ox 90 L 05/30/16 19:00 Intake & Output 05/30/16 05/30/16 05/31/16 06:59 18:59 06:59 Intake Total 7320.987 6288.523 253 Output Total 630 1405 75 Balance 0705.583 2216.523 178 Weight 84.2 kg 84.2 kg Intake: IV 1136 1086 53 0.9 Pressure Bag 36 36 3 Sodium Chloride 0.45% 1, 100 50 000 ml @ 50 mls/hr IV . Q20H [facility] Rx#:[id number] Sodium Chloride 0.9% 1, 1100 950 000 ml @ 100 mls/hr IV . Q10H [facility] Rx#:[id number] Intake, IV Titration 412.923 696.523 100 Amount Propofol 500 mg In Empty 412.923 196.523 100 Bag 1 bag @ Titrate IV . Q0M [facility] Rx#:[id number] Vancomycin 1,250 mg In 500 Sodium Chloride 0.9% 250 ml @ 125 mls/hr IVPB Q8HR @0100,0900,1700 [facility] Rx#: [id number] Tube Feeding 200 690 100 Other 500 Output: Urine 630 1405 75 Other: Voiding Method Indwelling Catheter Indwelling Catheter ABP, PAP, CO, CI - Last Documented Arterial Blood Pressure 109/59 - Exam Constitutional: in the ICU, sedated on ventilator. HEENT: NC/AT, Supple, no masses, no facial asymmetry noted on exam. ET tube is intact. Respiratory: patient on ventilator Cardiac: Regular rate and Rhythm GI: non tender, non distended Musculoskeletal: Armature Tester strengths are equal bilaterally 0/5, Lower extremity strengths are equal bilaterally at 0/5. Neurological: intubated and sedated. No obvious facial asymmetry seen. Plantar reflex showed silent toes bilaterally. No tremors or seizure-like activity is seen. Pupils equally round and fixed. Integementary: no rash, no erythema Psychiatric: absent mood or affect - Constitutional Constitutional Comment(s): All systems not noted in HPI or negative - Labs CBC & Chem 7: 05/30/16 05:25 05/30/16 05:25 Labs: Abnormal Lab Results - Last 24 Hours (Table) 05/30/16 05/30/16 05/30/16 Range/Units 00:03 04:47 05:25 RBC 3.31 L (4.30-5.90) m/uL Hgb 11.7 L (13.0-17.5) gm/dL Hct 34.9 L (39.0-53.0) % MCV 105.5 H (80.0-100.0) fL MCH 35.4 H (25.0-35.0) pg Plt Count 102 L (150-450) k/uL Lymphocytes # 0.3 L (1.0-4.8) k/uL ABG pH 7.26 L (7.35-7.45) ABG pCO2 56 H (35-45) mmHg ABG pO2 (83-108) mmHg ABG HCO3 (21-25) mmol/L ABG Total CO2 26 H (19-24) mmol/L ABG O2 Saturation (94-97) % Sodium (137-145) mmol/L Chloride (98-107) mmol/L BUN (9-20) mg/dL Glucose (74-99) mg/dL POC Glucose (mg/dL) 179 H (75-99) mg/dL Magnesium (1.6-2.3) mg/dL 05/30/16 05/30/16 05/30/16 Range/Units 05:25 05:50 12:12 RBC (4.30-5.90) m/uL Hgb (13.0-17.5) gm/dL Hct (39.0-53.0) % MCV (80.0-100.0) fL MCH (25.0-35.0) pg Plt Count (150-450) k/uL Lymphocytes # (1.0-4.8) k/uL ABG pH (7.35-7.45) ABG pCO2 (35-45) mmHg ABG pO2 (83-108) mmHg ABG HCO3 (21-25) mmol/L ABG Total CO2 (19-24) mmol/L ABG O2 Saturation (94-97) % Sodium 150 H (137-145) mmol/L Chloride 118 H (98-107) mmol/L BUN 29 H (9-20) mg/dL Glucose 127 H (74-99) mg/dL POC Glucose (mg/dL) 123 H 136 H (75-99) mg/dL Magnesium 2.8 H (1.6-2.3) mg/dL 05/30/16 05/30/16 Range/Units 17:12 20:10 RBC (4.30-5.90) m/uL Hgb (13.0-17.5) gm/dL Hct (39.0-53.0) % MCV (80.0-100.0) fL MCH (25.0-35.0) pg Plt Count (150-450) k/uL Lymphocytes # (1.0-4.8) k/uL ABG pH 7.14 L* (7.35-7.45) ABG pCO2 78 H* (35-45) mmHg ABG pO2 78 L (83-108) mmHg ABG HCO3 26 H (21-25) mmol/L ABG Total CO2 28 H (19-24) mmol/L ABG O2 Saturation 90.0 L (94-97) % Sodium (137-145) mmol/L Chloride (98-107) mmol/L BUN (9-20) mg/dL Glucose (74-99) mg/dL POC Glucose (mg/dL) 124 H (75-99) mg/dL Magnesium (1.6-2.3) mg/dL Microbiology - Last 24 Hours (Table) 05/29/16 17:15 Gram Stain - Preliminary Back Wound Culture - Preliminary 05/28/16 15:14 Blood Culture - Preliminary Blood No Growth after 48 hours 05/28/16 15:03 Blood Culture - Preliminary Blood No Growth after 48 hours 05/28/16 11:30 Gram Stain - Final Bronchial Washings - Right Bronchial Washings Culture - Final 05/26/16 01:11 Blood Culture - Preliminary Blood No Growth after 96 hours 05/28/16 14:10 Urine Culture - Final Urine,Catheterized Assessment and Plan (1) COPD (chronic obstructive pulmonary disease) Status: Acute (2) Pneumonia Status: Acute (3) Alcohol dependence Status: Acute (4) Seizures Status: Acute (5) Encephalopathy acute Status: Acute (6) Alcohol withdrawal seizure Status: Acute Plan: Patient has not had any seizure-like activity since his admission. Etiology of seizures is unclear at this time, possibly related to EtOH withdrawal. Patient to maintain Keppra 1000 mg twice a day. Continue seizure precautions and neurological checks. It is noted that the patient had to be pronated to maintain oxygen saturation 1-2 times today. Occupational therapy and physical therapy have been consulted. EEG noted mild to moderate encephalopathy. Keppra level pending. Status: Neurology will continue to follow on an as-needed basis, status poor, recommend discussion with family regarding plan of care. Feel free to contact our office with any questions. I discussed the patient's pertinent medical information with Dr. Contreras. He agrees with the plan of care as implemented.
[2016-05-30 22:44] LABS: Anion Gap 3 mmol/L; Blood Urea Nitrogen 34 mg/dL (9-20); Calcium 8.7 mg/dL (8.4-10.2); Carbon Dioxide 31 mmol/L (22-30); Chloride 117 mmol/L (98-107); Glucose 153 mg/dL (74-99); Magnesium 2.6 mg/dL (1.6-2.3); Non-African American GFR(MDRD) >60 (>60 ml/min/1.73 sqM); Potassium 4.8 mmol/L (3.5-5.1); Sodium 151 mmol/L (137-145)
[2016-05-31] MEDS: PROPOFOL 500 MG in EMPTY BAG 1 BAG IV SCH ×12 (00:53→19:49)
[2016-05-31 01:24] LABS: Glucose,Whole Blood 166 mg/dL (75-99)
[2016-05-31] MEDS: HEPARIN SODIUM,PORCINE 5,000 UNIT/ML 1 ML VIAL SQ SCH ×3 (01:24→15:08)
[2016-05-31] MEDS: methylPREDNISolone SOD SUCCI 125 MG/2 ML VIAL IV SCH ×3 (01:24→15:08)
[2016-05-31] MEDS: INSULIN LISPRO (humaLOG) 300 UNIT/3 ML VIAL SQ SCH ×4 (01:24→17:45)
[2016-05-31] MEDS: VANCOMYCIN 1,250 MG in SODIUM CHLORIDE 0.9% 250 ML IVPB SCH ×3 (01:25→20:41)
[2016-05-31 04:46] LABS: CH 32.9; CHCM 29.9; HCT 41.6 % (39.0-53.0); HDW 3.38; HGB 13.2 gm/dL (13.0-17.5); Hypochromasia Marked; MCH 35.1 pg (25.0-35.0); MCHC 31.6 g/dL (31.0-37.0); Macrocytosis Marked; Mean Platelet Volume 8.8; RBC 3.75 m/uL (4.30-5.90); RDW 15.3 % (11.5-15.5); WBC 6.5 k/uL (3.8-10.6); WBC (Perox) 6.93
[2016-05-31 05:00] LABS: MCV 111.1 fL (80.0-100.0)
[2016-05-31 05:18] LABS: Anion Gap 7 mmol/L; Blood Urea Nitrogen 41 mg/dL (9-20); Calcium 8.5 mg/dL (8.4-10.2); Carbon Dioxide 28 mmol/L (22-30); Chloride 115 mmol/L (98-107); Glucose 193 mg/dL (74-99); Magnesium 2.8 mg/dL (1.6-2.3); Non-African American GFR(MDRD) >60 (>60 ml/min/1.73 sqM); Phosphorous 6.3 mg/dL (2.5-4.5); Potassium 4.9 mmol/L (3.5-5.1); Sodium 150 mmol/L (137-145)
[2016-05-31 05:32] LABS: Add Differential Manual Differential
[2016-05-31 05:37] LABS: Band Neutrophils % 18.5 %; Metamyelocytes % 0.5 %; Myelocytes % 0.5 %; Nucleated Red Blood Cells 0 /100 WBC (0-0); Total Cells Counted 200
[2016-05-31 05:38] LABS: Manual Review Performed
[2016-05-31] MEDS: PIPERACILLIN-TAZOBACTAM 3.375 GM in DEXTROSE/WATER 1 50ML.BAG IVPB SCH ×3 (06:38→22:38)
--- NOTE | 2016-05-31 07:49 | XR ---
EXAMINATION TYPE: XR chest 1V portable DATE OF EXAM: 05/31/2016 7:02 AM COMPARISON: 05/30/2016 INDICATION: Pneumonia, previous abnormal chest TECHNIQUE: Single frontal view of the chest is obtained. FINDINGS: The heart size is normal. The pulmonary vasculature is normal. Consolidation with air bronchograms on the right. Bibasilar infiltrates are present. An endotracheal tube is present with tip above the jesús. Nasogastric tube transverses the thorax. E KG leads overlie the chest. Right central venous catheter is present with tip in the distal superior vena cava. Lung apices excluded from the [id number] IMPRESSION: 1. Less well-defined consolidation within the periphery of the right midlung. Developing bibasilar in filtrates are present. 2. Lines and catheters discussed above.
[2016-05-31] MEDS: CISATRACURIUM 200 MG in SODIUM CHLORIDE 0.9% 180 ML IV SCH (07:53)
[2016-05-31] MEDS ORDERED: VANCOMYCIN TROUGH DUE 1 EACH MISC MISCELLANE ONE (08:00)
[2016-05-31] MEDS: BUDESONIDE 1 MG/2 ML NEBU INHALATION SCH ×2 (08:14→20:34)
[2016-05-31] MEDS: IPRATROPIUM-ALBUTEROL 3 ML NEB INHALATION SCH ×3 (08:14→20:34)
[2016-05-31] MEDS: CHLORHEXIDINE GLUCONATE 15 ML CUP MUCOUS MEM SCH ×2 (08:31→20:41)
[2016-05-31] MEDS: FUROSEMIDE 10 MG/ML 4 ML VIAL IV SCH (08:31)
[2016-05-31] MEDS: MULTIVITAMINS, THERA 1 EACH TAB PO SCH (08:32)
[2016-05-31] MEDS: GABAPENTIN 100 MG CAP PO SCH ×2 (08:32→20:41)
[2016-05-31] MEDS: levETIRAcetam 500 MG TAB PO SCH ×2 (08:32→20:40)
[2016-05-31] MEDS: ARIPiprazole 2 MG TAB PO SCH (08:33)
[2016-05-31] MEDS: PANTOPRAZOLE 40 MG/10 ML VIAL IV SCH (08:36)
[2016-05-31] MEDS: PARoxetine 20 MG TAB PO SCH (08:36)
[2016-05-31] MEDS: PREGABALIN 75 MG CAP PO SCH ×2 (08:39→20:49)
--- NOTE | 2016-05-31 10:29 | PN ---
DATE OF SERVICE: 05/30/2016 Reason for followup is pneumonia. INTERVAL HISTORY: The patient is afebrile. He was seen early this afternoon where the patient remains to be intubated on the vent. Still having a hard time ventilating and required amount of oxygen and peak pressure. The patient is hemodynamically stable, not requiring any pressor support. No significant diarrhea. On examination, blood pressure is 127/57 with a pulse of 120, temperature 97.5. He is 92% on 100% FiO2. General description is a middle-aged male intubated on the vent. RESPIRATORY EXAMINATION: unlabored breathing with decreased breath sounds at the base. HEART: S1, S2, tachycardia. ABDOMEN: Soft, no tenderness. EXTREMITIES: No edema of the feet. LABS: Hemoglobin 11.7, white count of 5.2, BUN of 29, creatinine 0.70. Blood culture as well as BAL cultured considered to be negative. DIAGNOSTIC IMPRESSION AND PLAN: Patient with acute respiratory failure, vent dependent which is likely multifactorial with a question pneumonia and also ARDS. He is currently broadly covered with vanco and Zosyn and will continue. The overall prognosis remains to guarded. Continue supportive care. MTDD
[2016-05-31] MEDS: LEVOFLOXACIN 750MG-D5W PMX 750 MG in DEXTROSE/WATER 1 150ML.BAG IVPB SCH (10:54)
[2016-05-31 10:59] LABS: ABG Base Excess -4.1 mmol/L; ABG HCO3 23 mmol/L (21-25); ABG Oxygen Saturation 80.9 % (94-97); ABG PCO2 68 mmHg (35-45); ABG PH 7.16 (7.35-7.45); ABG PO2 58 mmHg (83-108); ABG TCO2 26 mmol/L (19-24)
[2016-05-31] MEDS: SODIUM CHLORIDE 0.45% 1,000 ML IV SCH (12:02)
--- NOTE | 2016-05-31 12:41 | PN ---
DATE OF SERVICE: 05/31/2016 Patient seen, evaluated, and examined. This patient has acute respiratory distress syndrome (ARDS) with severe hypoxemia and persistent pneumonia, ventilator strategy including pressure control ventilation has been attempted. Patient remains on pressure controlled with 15, PEEP of 10. He was able to get tidal volume into high 600, low 700 range but his arterial blood gases continue to progressively get worse and continue to saturate with sats dropped down to the low 80s and 70s. The family has expressed that patient would not want prolonged ventilator support, likelihood of recovery is extremely poor. Patient has been placed on comfort measures as per wishes of the family; however, kept on full supportive care. Family has elected for [facility] for which patient is to be evaluated. Currently, patient is going supportive care at this point in time. His ( ) continue to decline is 7.14, pCO2 of 78, pO2 of 90 on the last performed late last night. Sodium up to 151, BUN and creatinine are 34 and 0.8. Patient remains on propofol and Nimbex drip though. IMPRESSION: Acute hypoxic respiratory failure, ARDS, bilateral pneumonia, fever profound, respiratory and metabolic acidosis. Patient is now comfort care as per recommendation of the family. Will sign off now.
[2016-05-31 13:19] LABS: Glucose,Whole Blood 161 mg/dL (75-99)
--- NOTE | 2016-05-31 16:14 | PN ---
SUBJECTIVE: 51-year-old white male who was admitted to ICU. He is on the highest dose PEEP that they can give at 20. He is not improving. He is ARDS with severe hypoxemia and persistent pneumonia. Pressure control has been fairly good. His sats dropped down to the low 70s and 80s. Family, which was only the sister, who has I think, healthcare power of behavioral health worker, wants patient possibly harvest his organs for [facility]. All labs and medications and ICU notes and bass mechanism maker were reviewed. CARDIOVASCULAR: S1, S2. LUNGS: Decreased breath sounds x4. HEMATOLOGIC: Negative Homans. ASSESSMENT: 1. Acute hypoxemic respiratory failure. 2. Adult respiratory distress syndrome. 3. Pneumonia. 4. Acute respiratory failure. 5. Metabolic acidosis. [facility] is here. ICU notes 30 minutes discussing with the daughter and her at the bedside in the ICU this morning. ICU progress note 30 minutes on 05/31/2016.
[2016-05-31 16:46] LABS: Mis test requested (Non-blood) Pneum. jirovecii DFA
[2016-05-31 17:46] LABS: Glucose,Whole Blood 130 mg/dL (75-99)
[2016-05-31 19:47] LABS: CH 32.9; CHCM 29.7; HCT 42.8 % (39.0-53.0); HDW 3.29; HGB 13.2 gm/dL (13.0-17.5); Hypochromasia Marked; MCH 34.6 pg (25.0-35.0); MCHC 30.9 g/dL (31.0-37.0); MCV 111.9 fL (80.0-100.0); Macrocytosis Marked; Mean Platelet Volume 8.9; RBC 3.82 m/uL (4.30-5.90); RDW 15.3 % (11.5-15.5); WBC 7.8 k/uL (3.8-10.6)
[2016-05-31 19:55] LABS: Prothrombin Time 10.5 sec (9.0-12.0)
[2016-05-31 20:06] LABS: Calcium 8.2 mg/dL (8.4-10.2); Magnesium 2.6 mg/dL (1.6-2.3); Phosphorous 6.7 mg/dL (2.5-4.5); Potassium 4.5 mmol/L (3.5-5.1); Total Bilirubin 0.6 mg/dL (0.2-1.3); Total Protein 5.9 g/dL (6.3-8.2)
[2016-05-31 20:21] LABS: Amorphous Sediment,Urine Occasional /hpf; Appearance,Urine Cloudy (Clear); Bilirubin,Urine Negative (Negative); Glucose,Urine (UA) Negative (Negative); Ketones,Urine Negative (Negative); Leukocyte Esterase,Urine Negative (Negative); Mucus,Urine Rare /hpf; Nitrite,Urine Negative (Negative); PH, Urine 5.5 (5.0-8.0); Particle Count 22643; Protein,Urine 1+ (Negative); RBC,Urine 23 /hpf (0-5); Specific Gravity,Urine 1.015 (1.001-1.035); UA Billing (MACRO vs. MICRO) MICRO; Urobilinogen,Urine <2.0 mg/dL (<2.0); WBC,Urine 11 /hpf (0-5)
[2016-05-31] MEDS: TETRAHYDROZOLINE 0.05% OPHTH DROPS 15 ML BTL BOTH EYES PRN (20:40)
[2016-05-31] MEDS: MONTELUKAST 10 MG TAB PO SCH (20:41)
[2016-06-01] MEDS: HEPARIN SODIUM,PORCINE 5,000 UNIT/ML 1 ML VIAL SQ SCH ×2 (00:22→08:03)
[2016-06-01] MEDS: methylPREDNISolone SOD SUCCI 125 MG/2 ML VIAL IV SCH ×2 (00:22→08:03)
[2016-06-01] MEDS: INSULIN LISPRO (humaLOG) 300 UNIT/3 ML VIAL SQ SCH ×3 (00:24→12:22)
[2016-06-01 00:26] LABS: Glucose,Whole Blood 143 mg/dL (75-99)
[2016-06-01] MEDS: PROPOFOL 500 MG in EMPTY BAG 1 BAG IV SCH ×8 (02:20→12:21)
[2016-06-01] MEDS ORDERED: FUROSEMIDE 10 MG/ML 4 ML VIAL IV STA (03:02)
[2016-06-01 05:57] LABS: Glucose,Whole Blood 140 mg/dL (75-99)
[2016-06-01] MEDS: PIPERACILLIN-TAZOBACTAM 3.375 GM in DEXTROSE/WATER 1 50ML.BAG IVPB SCH ×2 (06:01→16:19)
[2016-06-01] MEDS: CISATRACURIUM 200 MG in SODIUM CHLORIDE 0.9% 180 ML IV SCH (06:04)
[2016-06-01 06:11] LABS: CH 33.1; CHCM 30.5; HCT 43.2 % (39.0-53.0); HDW 3.54; HGB 14.1 gm/dL (13.0-17.5); Hypochromasia Marked; MCH 35.7 pg (25.0-35.0); MCHC 32.6 g/dL (31.0-37.0); MCV 109.6 fL (80.0-100.0); Macrocytosis Marked; Mean Platelet Volume 8.7; Poikilocytosis Slight; RBC 3.94 m/uL (4.30-5.90); RDW 15.5 % (11.5-15.5); WBC 9.1 k/uL (3.8-10.6)
[2016-06-01 06:28] LABS: Calcium 7.8 mg/dL (8.4-10.2); Magnesium 2.6 mg/dL (1.6-2.3); Potassium 5.4 mmol/L (3.5-5.1); Total Bilirubin 0.7 mg/dL (0.2-1.3); Total Protein 5.8 g/dL (6.3-8.2)
[2016-06-01 06:39] LABS: Phosphorous 8.4 mg/dL (2.5-4.5)
[2016-06-01] MEDS: FUROSEMIDE 10 MG/ML 4 ML VIAL IV SCH (08:03)
[2016-06-01] MEDS: SODIUM CHLORIDE 0.45% 1,000 ML IV SCH ×2 (08:03→12:21)
[2016-06-01] MEDS: BUDESONIDE 1 MG/2 ML NEBU INHALATION SCH (08:04)
[2016-06-01] MEDS: levETIRAcetam 500 MG TAB PO SCH (08:04)
[2016-06-01] MEDS: GABAPENTIN 100 MG CAP PO SCH (08:05)
[2016-06-01] MEDS: IPRATROPIUM-ALBUTEROL 3 ML NEB INHALATION SCH ×3 (08:05→14:24)
[2016-06-01] MEDS: PANTOPRAZOLE 40 MG/10 ML VIAL IV SCH (08:05)
[2016-06-01] MEDS: CHLORHEXIDINE GLUCONATE 15 ML CUP MUCOUS MEM SCH (08:05)
[2016-06-01] MEDS: PARoxetine 20 MG TAB PO SCH (08:05)
[2016-06-01] MEDS: ARIPiprazole 2 MG TAB PO SCH (08:05)
[2016-06-01] MEDS: MULTIVITAMINS, THERA 1 EACH TAB PO SCH (08:05)
[2016-06-01] MEDS: PREGABALIN 75 MG CAP PO SCH (08:06)
[2016-06-01] MEDS: VANCOMYCIN 1,250 MG in SODIUM CHLORIDE 0.9% 250 ML IVPB SCH (09:07)
[2016-06-01 09:28] LABS: ABG PCO2 56 mmHg (35-45); ABG PH 7.18 (7.35-7.45); ABG PO2 81 mmHg (83-108)
[2016-06-01 09:29] LABS: ABG Base Excess -6.6 mmol/L; ABG HCO3 20 mmol/L (21-25); ABG Oxygen Saturation 92.3 % (94-97); ABG TCO2 22 mmol/L (19-24)
[2016-06-01] MEDS ORDERED: SCOPOLAMINE 1.5MG/72HR PATCH TRANSDERM STA (12:11)
[2016-06-01] MEDS ORDERED: HEPARIN SODIUM,PORCINE 5,000 UNIT/ML 1 ML VIAL IV STA (12:14)
[2016-06-01] MEDS: LEVOFLOXACIN 750MG-D5W PMX 750 MG in DEXTROSE/WATER 1 150ML.BAG IVPB SCH (12:22)
[2016-06-01 12:25] LABS: Glucose,Whole Blood 121 mg/dL (75-99)
[2016-06-01 12:46] VITALS: TEMP 101.5
[2016-06-01] MEDS ORDERED: ACETAMINOPHEN IV (For NPO) 1,000 MG in EMPTY BAG 1 BAG IVPB ONE (13:15)
[2016-06-01] MEDS ORDERED: MORPHINE SULFATE 2 MG/ML SYRINGE IV PRN (13:39)
[2016-06-01] MEDS ORDERED: MORPHINE SULFATE 2 MG/ML SYRINGE IVP ONE (13:39)
[2016-06-01] MEDS ORDERED: MORPHINE SULFATE 4 MG/ML SYRINGE IV PRN (13:39)
[2016-06-01] MEDS ORDERED: MORPHINE SULFATE (100 MG/2 ML) 100 MG in SODIUM CHLORIDE 0.9% 100 ML IV SCH (13:45)
[2016-06-01 13:51] LABS: Appearance,Urine Turbid (Clear); Bilirubin,Urine Negative (Negative); Glucose,Urine (UA) Negative (Negative); Granular Casts,Urine 29 /lpf (0); Ketones,Urine Negative (Negative); Leukocyte Esterase,Urine Negative (Negative); Mucus,Urine Rare /hpf; Nitrite,Urine Negative (Negative); PH, Urine 5.5 (5.0-8.0); Particle Count 30146; Protein,Urine 1+ (Negative); RBC,Urine 83 /hpf (0-5); Specific Gravity,Urine 1.013 (1.001-1.035); UA Billing (MACRO vs. MICRO) MICRO; Urobilinogen,Urine <2.0 mg/dL (<2.0); WBC,Urine 17 /hpf (0-5)
[2016-06-01] MEDS: LORazepam 2 MG/ML SYRINGE IV PRN (16:38)
[2016-06-01 18:54] VITALS: PULSE 142; RESP 24
[2016-06-02] MEDS ORDERED: VANCOMYCIN TROUGH DUE 1 EACH MISC MISCELLANE ONE (08:00)
--- NOTE | 2016-06-03 11:15 | PN ---
SUBJECTIVE: This is a 51-year-old white male admitted with acute respiratory distress, ARDS, pneumonia. Organs will be procured today by the transplant list. He is a [facility] type patient. His sister who is power of research attorney for medical affairs wants him set up for harvesting. Currently, he is on a ventilator. He is lying on his stomach to keep his oxygen level up. He has been unable to wean vasopressors or oxygen. Prognosis extremely guarded. Discussed with family. Patient most likely will be ( ) to harvest his organs and will pass away shortly after. ICU TIME: 30 minutes.
--- NOTE | 2016-07-22 08:55 | DS ---
DATE OF ADMISSION: 05/25/2016 DATE OF DISCHARGE: 06/01/2016 DISCHARGE MEDICATIONS: 1. Multivitamin daily. 2. Paroxetine 20 mg daily. 3. Clonidine 0.3 mg tablet t.i.d. 4. Amlodipine 5 mg daily. 5. Singulair 10 mg daily. 6. Levetiracetam 1000 mg b.i.d. 7. Mobic 7.5 daily. 8. Neurontin 100 mg b.i.d. 9. Lyrica 75 b.i.d. 10. Symbicort 160/4.5, 2 puffs daily. 11. Abilify 2 mg daily. CONDITION: Stable. PROGNOSIS: Guarded. Ambulate as tolerated. HOSPITAL COURSE OF EVENTS: This is a white male who came in with multilobular ( ) with sepsis, hyponatremia. Treated with IV antibiotics, IV steroids and updraft treatments given. The patient underwent bronchoscopy inpatient and due to stabilization was discharged home to follow up as an outpatient. Infection was reviewed by Dr. Hylton. Recommendations for antibiotics, seizure and encephalopathy was seen also for possible alcohol withdrawal seizures. He had some mild hypocalcemia, and thrombocytopenia, anemia, hypernatremia. He has chronic obstructive pulmonary disease exacerbation with pneumonia as mentioned. Treated with antibiotics and steroids. Alcohol withdrawal, CIWA protocol was given. Seizure treatments given. Alcohol withdrawal seizure and encephalopathy was stabilized. The patient was sent home in stable condition to follow up as an outpatient.
== END 2016-06-01 20:00 | disposition expired | DRG 870 ==
LOC: EC 08:30 → 4MS4W 11:27 → 6ICU 05-26 00:30
PROVIDERS: ADMIT Family Medicine; ATTEND Family Medicine
PROC: HZ2ZZZZ Detoxification Services for Substance Abuse Treatment (ICD-10-PCS; 2016-05-25)
PROC: 5A1955Z Respiratory Ventilation, Greater than 96 Consecutive Hours (ICD-10-PCS; principal; 2016-05-26)
PROC: 0BH17EZ Insertion of Endotracheal Airway into Trachea, Via Natural or Artificial Opening (ICD-10-PCS; 2016-05-26)
PROC: 0D9670Z Drainage of Stomach with Drainage Device, Via Natural or Artificial Opening (ICD-10-PCS; 2016-05-26)
PROC: 0T9B70Z Drainage of Bladder with Drainage Device, Via Natural or Artificial Opening (ICD-10-PCS; 2016-05-26)
PROC: 03HY32Z Insertion of Monitoring Device into Upper Artery, Percutaneous Approach (ICD-10-PCS; 2016-05-28)
PROC: 3E0G76Z Introduction of Nutritional Substance into Upper GI, Via Natural or Artificial Opening (ICD-10-PCS; 2016-05-28)
PROC: 02HV33Z Insertion of Infusion Device into Superior Vena Cava, Percutaneous Approach (ICD-10-PCS; 2016-05-28)
PROC: 0B968ZX Drainage of Right Lower Lobe Bronchus, Via Natural or Artificial Opening Endoscopic, Diagnostic (ICD-10-PCS; 2016-05-28)
PROC: 0B948ZX Drainage of Right Upper Lobe Bronchus, Via Natural or Artificial Opening Endoscopic, Diagnostic (ICD-10-PCS; 2016-05-28)
PROC: 0BJ08ZZ Inspection of Tracheobronchial Tree, Via Natural or Artificial Opening Endoscopic (ICD-10-PCS; 2016-05-28)
DX: A41.9 Sepsis, unspecified organism (principal); R65.21 Severe sepsis with septic shock; G93.41 Metabolic encephalopathy; J18.9 Pneumonia, unspecified organism; Z99.11 Dependence on respirator [ventilator] status; J44.0 Chronic obstructive pulmonary disease with (acute) lower respiratory infection; I11.0 Hypertensive heart disease with heart failure; E87.4 Mixed disorder of acid-base balance; J80 Acute respiratory distress syndrome; E87.0 Hyperosmolality and hypernatremia; I50.9 Heart failure, unspecified; E87.1 Hypo-osmolality and hyponatremia; J44.1 Chronic obstructive pulmonary disease with (acute) exacerbation; F10.239 Alcohol dependence with withdrawal, unspecified; L02.212 Cutaneous abscess of back [any part, except buttock and flank]; D69.59 Other secondary thrombocytopenia; I95.9 Hypotension, unspecified; Z66 Do not resuscitate; Z51.5 Encounter for palliative care; T17.990A Other foreign object in respiratory tract, part unspecified in causing asphyxiation, initial encounter; D18.1 Lymphangioma, any site; S06.5X0S Traumatic subdural hemorrhage without loss of consciousness, sequela; E83.51 Hypocalcemia; G40.909 Epilepsy, unspecified, not intractable, without status epilepticus; E87.6 Hypokalemia; E86.0 Dehydration; R74.8 Abnormal levels of other serum enzymes; E66.9 Obesity, unspecified; R00.0 Tachycardia, unspecified; M54.9 Dorsalgia, unspecified; G89.29 Other chronic pain; M19.90 Unspecified osteoarthritis, unspecified site; G62.9 Polyneuropathy, unspecified; F41.9 Anxiety disorder, unspecified; F32.9 Major depressive disorder, single episode, unspecified; S00.81XA Abrasion of other part of head, initial encounter; F17.210 Nicotine dependence, cigarettes, uncomplicated; R26.89 Other abnormalities of gait and mobility; R41.3 Other amnesia; Z91.19 Patient's noncompliance with other medical treatment and regimen; Z91.81 History of falling; Z86.69 Personal history of other diseases of the nervous system and sense organs; Z71.3 Dietary counseling and surveillance; Z82.0 Family history of epilepsy and other diseases of the nervous system; Z79.51 Long term (current) use of inhaled steroids; Z80.0 Family history of malignant neoplasm of digestive organs; Z79.1 Long term (current) use of non-steroidal anti-inflammatories (NSAID); Z81.8 Family history of other mental and behavioral disorders; Z79.899 Other long term (current) drug therapy; Z68.29 Body mass index [BMI] 29.0-29.9, adult; Y90.0 Blood alcohol level of less than 20 mg/100 ml
CPT/HCPCS: 31500; 31624; 36415; 36600; 70450; 71010; 71020; 71275; 80048; 80053; 80177; 80202; 80306; 80320; 81001; 82150; 82805; 83036; 83605; 83690; 83735; 84100; 84132; 84484; 85025; 85027; 85379; 85610; 85730; 86850; 86900; 86901; 87040; 87070; 87075; 87086; 87102; 87205; 87252; 87299; 87324; 87496; 87498; 87502; 87529; 87541; 87798; 88108; 88305; 93005; 94002; 94003; 94640; 95816; 96361; 96365; 96372; 99285